=== PATIENT | male | born 1975 | race Caucasian/White ===

== ENCOUNTER 2020-10-28 11:54 | Outpatient (REF) | payer OTHER, SELFPAY ==
[2020-10-28 13:21] LABS: Alanine Aminotransferase 99 U/L (0-40); Albumin Level 4.6 g/dL (3.5-5.0); Alkaline Phosphatase 95 U/L (39-117); Anion Gap 13 (12-20); Aspartate Amino Transferase 49 U/L (5-37); Bilirubin Total 0.7 mg/dL (0.0-1.0); Blood Urea Nitrogen 11 mg/dL (9-16); Calcium 9.4 mg/dL (8.4-10.2); Carbon Dioxide 28 mmol/L (22-29); Chloride 104 mmol/L (96-108); Cholesterol 170 mg/dL; Estimated Glomerular Filt Rate > 60; Glucose Fasting 95 mg/dL (60-99); HDL Cholesterol 37 mg/dL; LDL Cholesterol Calculated 71 mg/dl; Potassium 4.4 mmol/l (3.3-5.1); Sodium 141 mmol/L (135-145); Total Protein 7.8 g/dL (6.5-8.0); Triglycerides 310 mg/dL
[2020-10-28 13:40] LABS: Estimated Average Glucose 117 mg/dL; Hemoglobin A1C 148.4492 umol/L; Hemoglobin A1c % 5.7 %
[2020-10-28 13:44] LABS: TSH reflex Free T4 1.41 mIU/mL (0.32-4.0)
== END 2020-10-28 11:55 | disposition home or self-care (01) ==
LOC: HO.LAB 11:54
PROVIDERS: PCP Physician Assistant; Visit Provider Physician Assistant
DX: Z13.1 Encounter for screening for diabetes mellitus (principal); Z13.220 Encounter for screening for lipoid disorders; Z13.29 Encounter for screening for other suspected endocrine disorder
CPT/HCPCS: 36415; 80053; 80061; 83036; 84443

== ENCOUNTER 2021-07-14 09:17 | Outpatient (REF) | payer OTHER, SELFPAY ==
[2021-07-14 10:58] LABS: Alanine Aminotransferase 59 U/L (0-40); Albumin Level 4.6 g/dL (3.5-5.0); Alkaline Phosphatase 83 U/L (39-117); Anion Gap 13 (12-20); Aspartate Amino Transferase 33 U/L (5-37); Bilirubin Total 0.9 mg/dL (0.0-1.0); Blood Urea Nitrogen 12 mg/dL (9-16); Calcium 9.5 mg/dL (8.4-10.2); Carbon Dioxide 27 mmol/L (22-29); Chloride 107 mmol/L (96-108); Cholesterol 147 mg/dL; Estimated Glomerular Filt Rate > 60; Glucose Fasting 100 mg/dL (60-99); HDL Cholesterol 36 mg/dL; LDL Cholesterol Calculated 97 mg/dl; Potassium 4.7 mmol/L (3.3-5.1); Sodium 142 mmol/L (135-145); Total Protein 7.5 g/dL (6.5-8.0); Triglycerides 71 mg/dL
[2021-07-14 11:05] LABS: Estimated Average Glucose 108 mg/dL; Hemoglobin A1c % 5.4 %
[2021-07-14 11:19] LABS: TSH reflex Free T4 1.36 uIU/mL (0.32-4.0)
[2021-07-22 21:22] LABS: Cystic Fibrosis NEGATIVE (NEGATIVE)
== END 2021-07-14 09:18 | disposition home or self-care (01) ==
LOC: HO.LAB 09:17
PROVIDERS: PCP Physician Assistant; Visit Provider Physician Assistant
DX: Z13.1 Encounter for screening for diabetes mellitus (principal); Z13.220 Encounter for screening for lipoid disorders; Z13.29 Encounter for screening for other suspected endocrine disorder; R74.8 Abnormal levels of other serum enzymes; Z14.1 Cystic fibrosis carrier
CPT/HCPCS: 36415; 80053; 80061; 81220; 83036; 84443

== ENCOUNTER 2022-10-31 09:26 | Outpatient (REF) | payer OTHER, SELFPAY ==
[2022-10-31 10:49] LABS: Estimated Average Glucose 123 mg/dL; Hemoglobin A1c % 5.9 %
[2022-10-31 11:38] LABS: Alanine Aminotransferase 117 U/L (0-40); Albumin Level 4.7 g/dL (3.5-5.0); Alkaline Phosphatase 101 U/L (39-117); Anion Gap 13 (12-20); Aspartate Amino Transferase 74 U/L (5-37); Bilirubin Total 1.1 mg/dL (0.0-1.0); Blood Urea Nitrogen 12 mg/dL (9-16); Calcium 9.7 mg/dL (8.4-10.2); Carbon Dioxide 27 mmol/L (22-29); Chloride 104 mmol/L (96-108); Cholesterol 171 mg/dL; Estimated Glomerular Filt Rate > 60; Glucose Random 117 mg/dL (60-115); HDL Cholesterol 38 mg/dL; LDL Cholesterol Calculated 77 mg/dl; Potassium 4.3 mmol/L (3.3-5.1); Sodium 140 mmol/L (135-145); Total Protein 7.7 g/dL (6.5-8.0); Triglycerides 283 mg/dL
[2022-10-31 11:41] LABS: TSH reflex Free T4 1.66 uIU/mL (0.32-4.0); Vitamin D 25-OH Total 30.7 ng/mL (>30)
== END 2022-10-31 09:27 | disposition home or self-care (01) ==
LOC: HO.LAB 09:26
PROVIDERS: PCP Physician Assistant; Visit Provider Nurse Practitioner Family
DX: Z13.220 Encounter for screening for lipoid disorders (principal); Z13.21 Encounter for screening for nutritional disorder; Z13.29 Encounter for screening for other suspected endocrine disorder
CPT/HCPCS: 36415; 80053; 80061; 82306; 83036; 84443

== ENCOUNTER 2022-11-03 11:30 | Outpatient (REF) | payer OTHER, SELFPAY ==
--- NOTE | ~2022-11-03 | XR_ITS ---
EXAMINATION: X-RAY BILATERAL KNEES X-RAY LEFT KNEE CLINICAL INFORMATION: Pain COMPARISON: None TECHNIQUE: AP bilateral knees one view. Left knee 2 views. FINDINGS: Left knee: Joint spaces are relatively maintained. Marginal patellar spur. No acute fracture or dislocation. Small suprapatellar joint fluid. Right knee: Medial and lateral compartment joint spaces are relatively maintained. XR/XR knee LT 2V IMPRESSION: Left knee: Marginal patellar spur. No acute osseous abnormality seen.
--- NOTE | ~2022-11-03 | XR_ITS ---
EXAMINATION: X-RAY BILATERAL KNEES X-RAY LEFT KNEE CLINICAL INFORMATION: Pain COMPARISON: None TECHNIQUE: AP bilateral knees one view. Left knee 2 views. FINDINGS: Left knee: Joint spaces are relatively maintained. Marginal patellar spur. No acute fracture or dislocation. Small suprapatellar joint fluid. Right knee: Medial and lateral compartment joint spaces are relatively maintained. XR/XR knee standing BI IMPRESSION: Left knee: Marginal patellar spur. No acute osseous abnormality seen.
== END 2022-11-03 11:31 | disposition home or self-care (01) ==
LOC: HO.HOSX 11:30
PROVIDERS: PCP Physician Assistant; Visit Provider Orthopaedic Surgery
DX: M23.92 Unspecified internal derangement of left knee (principal)
CPT/HCPCS: 73560; 73565; 99202

== ENCOUNTER 2022-11-03 12:31 | Outpatient (REF) | payer OTHER, SELFPAY ==
[2022-11-06 04:24] LABS: HBS Num1 4.54 mIU/mL (0-7.99); HBc Num1 0.08 S/CO (0.00-0.79); HBsAGNum1 0.27 S/CO (0.00-0.99); Hepatitis A Antibody IgM 0.13 Index (0-0.79); Hepatitis B Core Antibody Nonreactive (Nonreactive); Hepatitis B Surface Antigen Negative (Negative); ~HepC Num1 0.08 S/CO (0.00-0.79); ~Hepatitis A Antibody IgM Nonreactive (Nonreactive); ~Hepatitis B Surface Antibody NONREACTIVE (Nonreactive); ~Hepatitis C Antibody Nonreactive (Nonreactive)
== END 2022-11-03 12:32 | disposition home or self-care (01) ==
LOC: HO.LAB 12:31
PROVIDERS: PCP Physician Assistant; Visit Provider Nurse Practitioner Family
DX: R74.8 Abnormal levels of other serum enzymes (principal)
CPT/HCPCS: 36415; 86704; 86706; 86709; 86803; 87340

== ENCOUNTER → 2022-11-09 08:54 | Outpatient (REF) | payer OTHER, SELFPAY | LOC: HO.SL 08:54 | PROVIDERS: PCP Physician Assistant; Visit Provider Nurse Practitioner Family | DX: G47.33 Obstructive sleep apnea (adult) (pediatric) (principal); R40.0 Somnolence | CPT/HCPCS: 95806 ==

== ENCOUNTER 2022-11-21 17:54 | Outpatient (REF) | payer OTHER, SELFPAY ==
--- NOTE | ~2022-11-21 | MR_ITS ---
EXAMINATION: MR KNEE WITHOUT CONTRAST, LEFT CLINICAL INFORMATION: Internal derangement. Pain traveling to calf and endplate to thigh for 5 months. Worse with weightbearing. COMPARISON: Left knee radiographs dated 11/03/2022. TECHNIQUE: MRI of the knee without contrast was performed using routine sequences on a high-field scanner. FINDINGS: MENISCI: Medial Meniscus: Complete radial tear of the posterior root measuring up to 0.9 cm in ML dimension with medial extrusion of the meniscal body where there is degenerative intrasubstance signal. Adjacent marrow edema within the posterior medial tibial plateau. Lateral Meniscus: Intact LIGAMENTS: Cruciate: Intact. Collateral: Edema adjacent to the posterior aspect of the medial collateral ligament which could be related to a meniscal tear or indicate a grade 1 sprain/partial tear. Intact fibular collateral ligament. EXTENSOR MECHANISM: Intact quadriceps and patellar tendons. Normal patellofemoral alignment. ARTICULAR CARTILAGE/BONE: Patellofemoral Compartment: Diffuse patellar articular cartilage signal heterogeneity and surface irregularity with areas of partial-thickness loss. Tiny marginal osteophytes. Medial Compartment: Intact articular cartilage. Lateral Compartment: Intact articular cartilage. JOINT FLUID AND BURSAE: Small joint effusion and trace Man's cyst. MR/MR knee LT wo con IMPRESSION: 1. Complete radial tear of the medial meniscus posterior root measuring 0.9 cm in ML dimension with medial extrusion of the meniscal body. Degenerative intrasubstance signal within the meniscal body. 2. Edema adjacent to the posterior aspect of the medial collateral ligament which could be related to a meniscal tear or indicate a grade 1 sprain/partial tear. 3. Mild patellofemoral osteoarthritis. Small joint effusion and trace Man's cyst.
== END 2022-11-21 17:55 | disposition home or self-care (01) ==
LOC: HO.MRI 17:54
PROVIDERS: Visit Provider Orthopaedic Surgery
DX: M23.92 Unspecified internal derangement of left knee (principal)
CPT/HCPCS: 73721

== ENCOUNTER → 2022-12-07 14:19 | Outpatient (BNVA) | payer OTHER, SELFPAY | PROVIDERS: PCP Nurse Practitioner Family; Visit Provider Orthopaedic Surgery | DX: S83.207D Unspecified tear of unspecified meniscus, current injury, left knee, subsequent encounter (principal) | CPT/HCPCS: 99212 ==

== ENCOUNTER 2022-12-15 08:06 | Outpatient (REF) | payer OTHER, SELFPAY ==
--- NOTE | ~2022-12-15 | US_ITS ---
EXAMINATION: US ABDOMEN LIMITED CLINICAL INFORMATION: Abnormal levels of other serum enzymes. Alanine aminotransferase (ALT) (serum glutamic-pyruvic transaminase) (SGPT) level abnormal. COMPARISON: None TECHNIQUE: Real-time imaging of the right upper quadrant abdominal viscera. FINDINGS: PANCREAS: Normal. The visualized pancreatic head and body are normal in appearance. The remainder of the pancreas is obscured from visualization by the overlying bowel gas. LIVER: The liver is normal in size. The liver contour is normal. There is diffuse increased liver parenchymal echogenicity. No focal hepatic lesion. There is no intrahepatic biliary duct dilatation seen. GALLBLADDER: Normal. The gallbladder is physiologically distended without evidence of stones, sludge, polyps, wall thickening or pericholecystic fluid. COMMON BILE DUCT: Normal in caliber measuring 0.4 cm in diameter. RIGHT KIDNEY: Normal. No hydronephrosis. No renal calculi or focal parenchymal lesions. The kidney measures 13.2 cm in maximum dimension. FREE FLUID: None. US/US abdomen limited IMPRESSION: There is generalized increase in hepatic echotexture, consistent with fatty infiltration or hepatocellular disease. Please correlate clinically. No focal hepatic mass or intrahepatic biliary dilatation is seen.
--- NOTE | 2022-12-15 09:07 | HM_ITS ---
Conclusion: 1. Patient was monitored for total period of 2 days and 22 hours 2. Baseline was normal sinus rhythm with average heart of 73 beats per minute 3. No significant pauses or bradycardia noted 4. Rare ectopy noted 5. Patient reported 1 event with no associated symptoms correlated with sinus rhythm MTDD
== END 2022-12-15 08:07 | disposition home or self-care (01) ==
LOC: HO.US 08:06
PROVIDERS: PCP Nurse Practitioner Family; Visit Provider Nurse Practitioner Family
DX: R00.2 Palpitations (principal); R74.8 Abnormal levels of other serum enzymes
CPT/HCPCS: 76705; 93242

== ENCOUNTER → 2023-01-02 10:26 | Outpatient (REF) | payer OTHER, SELFPAY ==
--- NOTE | 2023-01-02 10:30 | CA_ITS ---
Acquisition Time: 2023-01-02 10:52:34 Total Exercise Time: 00:07:54 Test Indications: Palpitations,HTN Medications: see med list Protocol: KAYLEE Max HR: 150 BPM 87% of Pred: 172 BPM Max BP: 192/078 mmHG Max Work Load: 9.9 METS Exercise stress test with exercise 7 min 54 sec achieving 87% MPHR, with request to stop due to fatigue, moderate sob, No chest discomfort, with isolated PACs, with BP 156/80 with rise to 192/78 with exercise, without EKG changes meeting criteria for ischemia. In recovery BP came down to 166/76 and breathing normalized. Test reviewed with Dr Collins Referred By: Aylin Joe Overread By: NIGHAT HIGGINS
== END ==
LOC: HO.CARD 10:26
PROVIDERS: PCP Nurse Practitioner Family; Visit Provider Nurse Practitioner Family
DX: R07.9 Chest pain, unspecified (principal); R00.2 Palpitations
CPT/HCPCS: 93017

== ENCOUNTER → 2023-03-12 14:42 | Outpatient (BNVA) | payer OTHER, SELFPAY | PROVIDERS: PCP Nurse Practitioner Family; Visit Provider Orthopaedic Surgery | DX: Z01.818 Encounter for other preprocedural examination (principal); S83.207D Unspecified tear of unspecified meniscus, current injury, left knee, subsequent encounter | CPT/HCPCS: 99212 ==

== ENCOUNTER 2023-04-23 14:23 | Outpatient (AMB) | payer OTHER, SELFPAY ==
--- NOTE | 2023-04-23 14:42 | A.OFFVIS_ITS ---
Intake Vital Signs 04/23/23 14:43 Height 6 ft 1 in Weight 284 lb BMI 37.5 Intake Visit Reasons: Pre-Op LT knee 05/02/23NE Intake Note: Bran is a 47 year old male who presents today for a pre op appointment for his left knee , 05/02/23 NE. Allergies aspirin Allergy (Unknown, Verified 04/23/23 14:42) nose bleeds HPI Pre-Op LT knee 05/02/23NE HPI Details 47-year-old right hand dominant male who presents in the office today for his preoperative history and physical exam prior to a left knee arthroscopy to be performed on 05/02/[address] Garcia. Patient confirms use of narcotics in the past with no complications. Patient has an allergy history, as follows: -Aspirin; nose bleeds due to thin blood. Patient is currently taking, as follows: -Lisinopril 5 mg PO daily Patient has a medical history, as follows: -Hypertension -Mild BRANDON -Palpitations -Plaque psoriasis -Erectile dysfunction -Daytime somnolence Patient has no known surgical history. Patient has a social history, as follows: -Tobacco use; Cigarette, quit 14 years ago. [facility] Medical History Hypertension Obstructive sleep apnea syndrome, mild Palpitations Somnolence, daytime Surgical History No pertinent past surgical history Family History Father No problems noted. Mother No problems noted. Brother No problems noted. Son No problems noted. 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 Cognitive needs: No Hearing needs: No Vision needs: No Review of Systems Const All systems reviewed & are unremarkable except as noted in HPI and below Physical Exam Vital Signs: BMI result Body Mass Index 37.5 Const General: cooperative and no acute distress Orientation/consciousness: patient oriented x3 Neck Neck: Yes normal visual inspection and Yes no lymphadenopathy Resp Effort & Inspection: normal respiratory effort and able to speak in complete sentences Cardio Peripheral pulses: Peripheral pulses 2+ throughout GI Inspection: Yes normal to inspection Palpation (GI): Soft to palpation Skin General skin exam: no rashes or lesions noted Neuro General: patient oriented x3 Extrem Other: Left Knee: + medial Ronnie's in deep flexion Psych Appearance: grossly normal Affect: normal affect Attitude: cooperative Assessment & Plan Assessment & Plan (1) Tear of meniscus of left knee: Code(s): S83.207A - Unspecified tear of unspecified meniscus, current injury, left knee, initial encounter Plan Mr. Miles is a 47-year-old right hand dominant male who presents in the office today for his preoperative history and physical exam prior to a left knee arthroscopy to be performed on 05/02/[address] Garcia. Patient confirms use of narcotics in the past with no complications. Patient has an allergy history, as follows: -Aspirin; nose bleeds due to thin blood. Patient is currently taking, as follows: -Lisinopril 5 mg PO daily Patient has a medical history, as follows: -Hypertension -Mild BRANDON -Palpitations -Plaque psoriasis -Erectile dysfunction -Daytime somnolence Patient has no known surgical history. Patient has a social history, as follows: -Tobacco use; Cigarette, quit 14 years ago. I discussed in detail the procedure and what to expect pre and post operatively. We discussed the risks, benefits and alternatives to the surgery as well as the rehabilitation course. The risks; which include, but are not limited to infection, bleeding, nerve injury, ongoing pain, swelling, and stiffness, perioperative risk of injury to bones and soft tissues, and blood clots. I have answered all questions and with their understanding they have consented to move forward with a left knee arthroscopy to be performed on 05/02/[address] Yonny Garcia. Follow up will be at the post operative appointment on 05/07/2023 at 1:15 pm, or sooner if needed. Patient Instructions: Scribed for Emerita Cummins PA-C by Aylin Apodaca medical officer, on 04/23/2023 at 2:32 pm, EST. Your attestation Coding Level of Care Code Global (15371) Diagnoses Tear of meniscus of left knee S83.207A
[2023-04-23 14:43] VITALS: BMI 37.5
== END 2023-04-23 15:31 | disposition home or self-care (01) ==
PROVIDERS: PCP Nurse Practitioner Family; Visit Provider Physician Assistant
DX: S83.207A Unspecified tear of unspecified meniscus, current injury, left knee, initial encounter (principal)
CPT/HCPCS: 99213

== ENCOUNTER 2023-04-23 14:23 | Outpatient (REF) | payer OTHER, SELFPAY ==
[2023-04-23 15:16] LABS: MANUAL DIFF FLAG NO
[2023-04-23 15:38] LABS: Basophils Percent Auto 0.5 % (0-2); Eosinophils Absolute Auto 0.1 X10*3/uL (0.0-0.4); Hematocrit 43.1 % (42.0-52.0); Hemoglobin 14.6 g/dl (14.0-18.0); Imm Gran Abs Auto 0.02 X10*3/uL (0.00-0.03); Imm Gran Pct Auto 0.3 % (0.0-0.4); Lymphocytes Absolute Auto 1.3 X10*3/uL (1.2-4.9); Lymphocytes Percent Auto 20.2 % (20-40); Mean Corpuscular HGB Conc 33.9 g/dl (31.0-36.0); Mean Corpuscular Hemoglobin 32.3 pg (27.0-33.0); Mean Corpuscular Volume 95.4 fL (80.0-98.0); Mean Platelet Volume 10.3 fL (9.4-12.4); Monocytes Absolute Auto 0.5 X10*3/uL (0.1-1.2); Monocytes Percent Auto 7.7 % (2-11); Neutrophils Absolute Auto 4.6 x10*3/uL (2.0-8.3); Neutrophils Percent Auto 69.3 % (45-73); Platelet Count 193 X10*3/uL (160-400); Red Blood Count 4.52 X10*6/uL (4.60-5.80); White Blood Count 6.7 X10*3/uL (4.8-10.8)
[2023-04-23 15:57] LABS: Prothrombin Time 11.5 SEC (10.0-13.1)
[2023-04-23 16:19] LABS: Alanine Aminotransferase 82 U/L (0-40); Albumin Level 4.8 g/dL (3.5-5.0); Alkaline Phosphatase 106 U/L (39-117); Anion Gap 14 (12-20); Aspartate Amino Transferase 39 U/L (5-37); Bilirubin Total 0.8 mg/dL (0.0-1.0); Blood Urea Nitrogen 16 mg/dL (9-16); Calcium 9.7 mg/dL (8.4-10.2); Carbon Dioxide 26 mmol/L (22-29); Chloride 103 mmol/L (96-108); Estimated Glomerular Filt Rate > 60; Glucose Random 166 mg/dL (60-115); Potassium 4.1 mmol/L (3.3-5.1); Sodium 139 mmol/L (135-145); Total Protein 8.3 g/dL (6.5-8.0)
[2023-04-23 16:33] LABS: TSH reflex Free T4 2.07 uIU/mL (0.32-4.0)
== END 2023-04-23 14:24 | disposition home or self-care (01) ==
LOC: HO.LAB 14:23
PROVIDERS: PCP Nurse Practitioner Family; Visit Provider Physician Assistant
DX: Z01.812 Encounter for preprocedural laboratory examination (principal); S83.207D Unspecified tear of unspecified meniscus, current injury, left knee, subsequent encounter
CPT/HCPCS: 36415; 80053; 84443; 85025; 85610; 99212

== ENCOUNTER → 2023-05-01 15:21 | Outpatient (BNV) | payer OTHER, SELFPAY | PROVIDERS: PCP Nurse Practitioner Family; Visit Provider Internal Medicine Cardiovascular Disease | DX: Z01.810 Encounter for preprocedural cardiovascular examination (principal) | CPT/HCPCS: 93010 ==

== ENCOUNTER 2023-05-02 08:43 | Day surgery (SDC) | payer OTHER, SELFPAY ==
[2023-04-27 19:15] VITALS: BMI 36.9
--- NOTE | 2023-05-01 08:45 | HO.ANESPROP2 ---
HPI - Anesthesia Eval Consult details Narrative: 48yo M for Left Knee Arthroscopy,poss meniscus root repair, Sent by ortho for medical clearance. EKG pending before PCP will clear. PMFSH Active Problems Active Problems: All Active Problems (Updated 04/27/23 @ 19:15 by Linette Swanson RN) Skin lesion (Acute) Screening for diabetes mellitus (DM) (Acute) Screening for hypercholesterolemia (Acute) Screening for hypothyroidism (Acute) Erectile dysfunction (Acute) Annual physical exam (Acute) Elevated liver enzymes (Acute) Cystic fibrosis carrier (Acute) Plaque psoriasis (Acute) Internal derangement of left knee (Acute) Tear of meniscus of left knee (Acute) Hypertension (Acute) Obstructive sleep apnea syndrome, mild (Acute) Palpitations (Acute) Somnolence, daytime (Acute) Past Medical History Medical History (Updated 04/27/23 @ 19:15 by Linette Swanson RN) GERD (gastroesophageal reflux disease) Hypertension Obstructive sleep apnea syndrome, mild Palpitations Rheumatoid arthritis Somnolence, daytime Family History Family History Father No problems noted. Mother No problems noted. Brother No problems noted. Son No problems noted. 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 Cognitive needs: No Hearing needs: No Vision needs: No Meds Allergies Allergy/AdvReac Type Severity Reaction Status Date / Time aspirin Allergy Unknown nose bleeds Verified 04/23/23 14:42 Home Medications Medication Instructions Recorded Confirmed Last Taken Type guselkumab 100 mg/mL subcutaneous 100 mg subcut 11/01/20 10/23/22 Unknown History auto-injector blood pressure test kit-large #1 ea 04/12/23 Unknown History ketoconazole 2 % shampoo topical BID 04/12/23 Unknown History omeprazole 20 mg capsule,delayed 20 mg PO DAILY 07/21/23 07/21/23 Unknown History release Exam Exam Date and Time: May 01, 2023 0845 Height,Weight and Vital Signs: Height 6 ft 1 in Weight 127.006 kg Pertinent Lab Results Pertinent Lab Results: Laboratory Tests 04/23/23 04/23/23 15:15 15:15 WBC 6.7 Hgb 14.6 Hct 43.1 Plt Count 193 Sodium 139 Potassium 4.1 Chloride 103 Carbon Dioxide 26 BUN 16 Creatinine 1.12 Narrative Narrative: Exercise Stress 12/2022 Protocol: KAYLEE ? Max HR: 150 BPM? 87% of? Pred: 172 BPM Max BP: 192/078 mmHG Max Work Load: 9.9 METS ? Exercise stress test with exercise 7 min 54 sec achieving 87% MPHR, with request ?to stop due to fatigue, moderate sob, No chest discomfort, with isolated PACs, ?with BP 156/80 with rise to 192/78 with exercise, without EKG changes meeting ?criteria for ischemia. In recovery BP came down to 166/76 and breathing ?normalized. Test reviewed with Dr Dennis Tatum 12/2022 Conclusion: 1. Patient was monitored for total period of 2 days and 22 hours 2. Baseline was normal sinus rhythm with average heart of 73 beats per minute 3. No significant pauses or bradycardia noted 4. Rare ectopy noted 5. Patient reported 1 event with no associated symptoms correlated with sinus rhythm Assessment and Plan Assessment Anesthesia Assessment: Chart Reviewed
--- NOTE | 2023-05-01 11:56 | P.CONAN_ITS ---
Documented by User: Lorenza Charlton NP 05/01/23 12:00 HPI - Anesthesia Eval Consult details Narrative: 48yo M for Left Knee Arthroscopy,poss meniscus root repair, Seen by PCP for optimization. Labs and EKG ordered. Labs WNL, EKG pending. To be done 05/01/23. [facility] Active Problems Active Problems: All Active Problems (Updated 04/27/23 @ 19:15 by Linette Swanson RN) Skin lesion (Acute) Screening for diabetes mellitus (DM) (Acute) Screening for hypercholesterolemia (Acute) Screening for hypothyroidism (Acute) Erectile dysfunction (Acute) Annual physical exam (Acute) Elevated liver enzymes (Acute) Cystic fibrosis carrier (Acute) Plaque psoriasis (Acute) Internal derangement of left knee (Acute) Tear of meniscus of left knee (Acute) Hypertension (Acute) Obstructive sleep apnea syndrome, mild (Acute) Palpitations (Acute) Somnolence, daytime (Acute) Past Medical History Medical History (Updated 04/27/23 @ 19:15 by Linette Swanson RN) GERD (gastroesophageal reflux disease) Hypertension Obstructive sleep apnea syndrome, mild Palpitations Rheumatoid arthritis Somnolence, daytime Family History Family History Father No problems noted. Mother No problems noted. Brother No problems noted. Son No problems noted. Surgical History Surgical History (Updated 04/27/23 @ 19:26 by Linette Swanson RN) H/O excision of dermoid cyst No pertinent past surgical history Status post debridement Social History Social History Housing: House Patient Tobacco Use Status: Former Tobacco user Tobacco use type: Cigarette e-Cigarette/Vaping Use: Never Used Second Hand Smoke Exposure: No Use of substances other than those prescribed or required for medical reasons: Yes Substance Use Frequency: Weekly Are you DNR?: No Advance Directives: No Advance Directives Information Provided: Yes Advance Directives on File: No Recently lost weight without trying: No Nutrition Risks: No Nutritional Risk service: No 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al status: unemployed 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 Cognitive needs: No Hearing needs: No Vision needs: No Meds Allergies Allergy/AdvReac Type Severity Reaction Status Date / Time aspirin Allergy Unknown nose bleeds Verified 04/23/23 14:42 Home Medications Medication Instructions Recorded Confirmed Last Taken Type guselkumab 100 mg/mL subcutaneous 100 mg subcut 11/01/20 10/23/22 Unknown History auto-injector blood pressure test kit-large #1 ea 04/12/23 Unknown History ketoconazole 2 % shampoo topical BID 04/12/23 Unknown History omeprazole 20 mg capsule,delayed 20 mg PO DAILY 04/27/23 04/27/23 Unknown History release Exam Exam Date and Time: May 01, 2023 1156 Height,Weight and Vital Signs: Height 6 ft 1 in Weight 127.006 kg Pertinent Lab Results Pertinent Lab Results: Laboratory Tests 04/23/23 04/23/23 15:15 15:15 WBC 6.7 Hgb 14.6 Hct 43.1 Plt Count 193 Sodium 139 Potassium 4.1 Chloride 103 Carbon Dioxide 26 BUN 16 Creatinine 1.12 Narrative Narrative: Holter 12/2022 Conclusion: 1. Patient was monitored for total period of 2 days and 22 hours 2. Baseline was normal sinus rhythm with average heart of 73 beats per minute 3. No significant pauses or bradycardia noted 4. Rare ectopy noted 5. Patient reported 1 event with no associated symptoms correlated with sinus rhythm Exercise Stress Test Protocol: KAYLEE ? Max HR: 150 BPM? 87% of? Pred: 172 BPM Max BP: 192/078 mmHG Max Work Load: 9.9 METS ? Exercise stress test with exercise 7 min 54 sec achieving 87% MPHR, with request ?to stop due to fatigue, moderate sob, No chest discomfort, with isolated PACs, ?with BP 156/80 with rise to 192/78 with exercise, without EKG changes meeting ?criteria for ischemia. In recovery BP came down to 166/76 and breathing ?normalized. Test reviewed with Dr Collins Assessment and Plan Assessment Anesthesia Assessment: Chart Reviewed Documented by User: Charles Merchant MD 05/02/23 09:21 [facility] Past Medical History Medical History (Updated 04/27/23 @ 19:15 by Linette Swanson RN) GERD (gastroesophageal reflux disease) Hypertension Obstructive sleep apnea syndrome, mild Palpitations Rheumatoid arthritis Somnolence, daytime Family History Family History Father No problems noted. Mother No problems noted. Brother No problems noted. Son No problems noted. Family history of problems with anesthesia: No Surgical History Surgical History (Updated 04/27/23 @ 19:26 by Linette Swanson RN) H/O excision of dermoid cyst No pertinent past surgical history Status post debridement History of Problems with Anesthesia: No Social History Social History Housing: House Patient Tobacco Use Status: Former Tobacco user Tobacco use type: Cigarette e-Cigarette/Vaping Use: Never Used Second Hand Smoke Exposure: No Use of substances other than those prescribed or required for medical reasons: Yes Substance Use Frequency: Weekly Are you DNR?: No Advance Directives: No Advance Directives Information Provided: Yes Advance Directives on File: No Recently lost weight without trying: No Nutrition Risks: No Nutritional Risk service: No 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al status: unemployed 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 Cognitive needs: No Hearing needs: No Vision needs: No Meds Allergies Allergy/AdvReac Type Severity Reaction Status Date / Time aspirin Allergy Unknown nose bleeds Verified 04/23/23 14:42 Home Medications Medication Instructions Recorded Confirmed Last Taken Type guselkumab 100 mg/mL subcutaneous 100 mg subcut 11/01/20 10/23/22 Unknown History auto-injector blood pressure test kit-large #1 ea 04/12/23 Unknown History ketoconazole 2 % shampoo topical BID 04/12/23 Unknown History omeprazole 20 mg capsule,delayed 20 mg PO DAILY 04/27/23 04/27/23 Unknown History release Exam Airway Mallampati Class: III TM Dist: >3cm Neck ROM: Limited Heart: rrr Lungs: cta Assessment and Plan Assessment Anesthesia Assessment: Anesthesia Plan Discussed Final Anesthetic Review Family History of Problems with Anesthesia: No History of Problems with Anesthesia: No NPO: Yes ASA Class: III Final Preanesthetic Review: No Changes in Pt Med Stat, Meds/Allgs Chart Reviewed, Consent Obtained/Reviewed and Anes Risks/Benef Reviewed Patient Risk: Intermediate Procedure Risk: Intermediate Anesthetic Plan Anesthetic Plan: GA and Agree w/ Assess. and Plan Disposition: Standard PACU
--- NOTE | 2023-05-01 15:21 | ECG_ITS ---
Test Reason : PREOP Blood Pressure : / mmHG Vent. Rate : 079 BPM Atrial Rate : 079 BPM P-R Int : 148 ms QRS Dur : 094 ms QT Int : 392 ms P-R-T Axes : 000 028 040 degrees QTc Int : 449 ms Normal sinus rhythm Normal ECG No previous ECGs available Referred By: Aylin Joe Electronically Signed By:YASIR CHANDLER MD
[2023-05-02] VITALS (10 sets, daily range): BP systolic 122–157; BP diastolic 50–84; PULSE 82–110; RESP 16–18; TEMP 36.1–36.6; O2SAT 95–99
[2023-05-02] MEDS: Lactated Ringers 1,000 ML 100 ML IVCONT (09:34)
--- NOTE | 2023-05-02 09:59 | MHC.SHP ---
Pre-Procedural Eval Section A Date of Service: 05/02/23 The patient is an INPATIENT: No Changes since office visit: No Cold of Flu in the past 2 weeks, No New Medical Problems, No Changes in Medication and No Patient answered all questions The History & Physical has been completed within 30 days and I have reviewed it.: Yes Section B Chief Complaint: Unspecified tear of unspecified meniscus, current Allergies: Allergies Allergy/AdvReac Type Severity Reaction Status Date / Time aspirin Allergy Unknown nose bleeds Verified 04/23/23 14:42 Plan I have reviewed the history and physical and performed a pertinent physical examination on my patient. No changes have occurred unless specified. Time Spent With Patient Time: Total time managing care of this patient today ____ minutes.
--- NOTE | 2023-05-02 10:04 | PC.NURSE ---
Cardiac hx and EKG reviewed by anesthesia Dr Shonda good to proceed.
--- NOTE | 2023-05-02 13:03 | PM.OP ---
Brief Operative Note Date of Service: 05/02/23 Pre-op diagnosis: left knee MMT Post-op diagnosis: other (1) MMT 2) LMT 3) Partial ACL tear 4) lateral compartment 3/4 OA 4) lateral PF G2 chondromalacia) Procedure: Left knee partial MM, partial LM, ACL debridement and chondroplasty Surgeon: Yonny Garcia MD Anesthesia: GETA and local Was an Vice President Of Human Resources used for this Procedure?: Yes Vice President Of Human Resources: Emerita Cummins Estimated blood loss (mL): 5 Tourniquet time (min): 30 IV fluids (mL): 750 Pathology: none sent Condition: stable Disposition: PACU
[2023-05-02] MEDS: oxyCODONE HCl Immed Release 5 MG TABLET PO (13:28)
[2023-05-02] MEDS: fentaNYL citrate/PF 100 MCG/2 ML VIAL 25 MCG IVPUSH (13:28)
--- NOTE | 2023-05-11 16:17 | W.PM.OPN ---
Operative Note Operative Note Date of Service: 05/02/23 Narrative: Date of Service: 05/02/23 Pre-op diagnosis: left knee MMT Post-op diagnosis: other (1) MMT 2) LMT 3) Partial ACL tear 4) lateral compartment 3/4 OA 4) lateral PF G2 chondromalacia) Procedure: Left knee partial MM, partial LM, ACL debridement and chondroplasty Surgeon: Yonny Garcia MD Anesthesia: GETA and local Was an Mechanical Assembly used for this Procedure?: Yes Mechanical Assembly: Emerita Cummins Estimated blood loss (mL): 5 Tourniquet time (min): 30 IV fluids (mL): 750 Pathology: none sent Condition: stable Disposition: PACU Patient was brought to the operating room placed supine on the arthroscopic table and prepped and draped in standard sterile fashion. A time-out was called to identify proper site proper procedure proper surgeon and IV antibiotics per weight were administered. I began by exsanguinating the limb and insufflating tourniquet to 300 mm Hg. Then made a standard anterolateral stab incision. The knee was insufflated with water and 30 degree arthroscope was placed. There was grade 2 fibrillations of the lateral patella. The suprapatellar pouch was clean and the gutters were clean. I descended into the medial compartment where I made my medial portal under direct visualization. There was a tear of the root of the medial meniscus but partial and the stability of the root was intact. I debrided this with a shaver. I entered the notch and there was a partial ACL avulsion off the tibia that was healed but with a prominent piece of avulased bone. This was removed with a sahver and the AM bundle of the ACL was intact. The lateral compartment was then evaluated. There was a small tear without instability but a focal area of G3/4 chondral loss measuring 1cmx 5 mnm over the medial aspect of the lateral tibial plateau. The lateral meniscus tear and the cartilage were debrided down to stable edges. I returned to the patella and debrided the loose cartilage. I removed all instrumentation. I then removed all instrumentation and closed the portals with skin glue. 25 mL of 2% Marcaine with epinephrine was injected into the joint and the surrounding soft tissues. Patient was then placed in sterile dressing extubated brought recovery room stable condition. There were no known complications.
== END 2023-05-02 14:30 | disposition home or self-care (01) ==
PROVIDERS: PCP Nurse Practitioner Family; Visit Provider Orthopaedic Surgery
PROC: (CPT 29870; principal; 2023-05-02 10:50)
DX: S83.242A Other tear of medial meniscus, current injury, left knee, initial encounter (principal); S83.282A Other tear of lateral meniscus, current injury, left knee, initial encounter; S83.512A Sprain of anterior cruciate ligament of left knee, initial encounter; M22.42 Chondromalacia patellae, left knee; X58.XXXA Exposure to other specified factors, initial encounter; Y93.9 Activity, unspecified; Y92.9 Unspecified place or not applicable; Y99.8 Other external cause status; M06.9 Rheumatoid arthritis, unspecified; I10 Essential (primary) hypertension; R00.2 Palpitations; L40.0 Psoriasis vulgaris; G47.33 Obstructive sleep apnea (adult) (pediatric); Z79.899 Other long term (current) drug therapy; Z88.8 Allergy status to other drugs, medicaments and biological substances; Z87.891 Personal history of nicotine dependence
CPT/HCPCS: 29880; 93005; J0131; J0171; J0690; J1885; J2795; J3010

== ENCOUNTER → 2023-05-02 08:43 | Outpatient (BNV) | payer OTHER, SELFPAY | PROVIDERS: PCP Nurse Practitioner Family; Visit Provider Orthopaedic Surgery | DX: S83.512A Sprain of anterior cruciate ligament of left knee, initial encounter (principal); S83.232A Complex tear of medial meniscus, current injury, left knee, initial encounter; S83.272A Complex tear of lateral meniscus, current injury, left knee, initial encounter; M17.12 Unilateral primary osteoarthritis, left knee; M22.42 Chondromalacia patellae, left knee | CPT/HCPCS: 29880; 29888 ==

== ENCOUNTER 2023-05-08 10:46 | Outpatient (AMB) | payer OTHER, SELFPAY ==
--- NOTE | 2023-05-08 10:49 | MHC.OFFVIS ---
Intake Vital Signs 05/08/23 10:54 Height 6 ft 1 in Weight 280 lb BMI 36.9 Intake Visit Reasons: PO LT knee , poss MM root repair 05/02/23NE Intake Note: Bran is a 47 year old male who presents today for a post op appointment for his left knee , 05/02/23 NE. Patient reports ongoing achiness. He states his knee feels better that before. Allergies aspirin Allergy (Unknown, Verified 05/08/23 10:53) nose bleeds HPI PO LT knee , poss MM root repair 05/02/23NE HPI Details 48-year-old male who presents in the office today 6 days status post left knee partial medial menisectomy, partial lateral menisectomy, ACL debridement and chondroplasty, which was performed on 05/02/[address] Garcia. The patient reports ongoing achiness. He confirms the knee feels better then prior to the surgery. [facility] Medical History GERD (gastroesophageal reflux disease) Hypertension Obstructive sleep apnea syndrome, mild Palpitations Rheumatoid arthritis Somnolence, daytime Surgical History H/O excision of dermoid cyst No pertinent past surgical history Status post debridement Family History Father No problems noted. Mother No problems noted. Brother No problems noted. Son No problems noted. 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 No signs of infection. ROM is 20-90 degrees. NVI. Assessment & Plan Assessment & Plan (1) Tear of meniscus of left knee: Comment: Left knee partial medial menisectomy, partial lateral menisectomy, ACL debridement and chondroplasty 05/02/2023 NE Code(s): S83.207A - Unspecified tear of unspecified meniscus, current injury, left knee, initial encounter Plan Mr. Miles is a 48-year-old male who presents in the office today 6 days status post left knee partial medial menisectomy, partial lateral menisectomy, ACL debridement and chondroplasty, which was performed on 05/02/[address] Garcia. The patient reports ongoing achiness. He confirms the knee feels better then prior to the surgery. The patient will participate in his first physical therapy appointment on 05/10/2023 which I have encouraged him to attend to work on ROM. Follow up will be in 3 weeks for a ROM check, or sooner if needed. Patient Instructions: Scribed for Emerita Cummins PA-C by tessie Wade scribe, on 05/08/2023 at 10:48 am, EST. Your attestation Coding Level of Care Code Global (98757) Diagnoses Tear of meniscus of left knee S83.207A
[2023-05-08 10:54] VITALS: BMI 36.9
== END 2023-05-08 13:53 | disposition home or self-care (01) ==
PROVIDERS: PCP Nurse Practitioner Family; Visit Provider Physician Assistant
DX: S83.207A Unspecified tear of unspecified meniscus, current injury, left knee, initial encounter (principal)
CPT/HCPCS: 99024

== ENCOUNTER → 2023-05-08 10:46 | Outpatient (BNVA) | payer OTHER, SELFPAY | PROVIDERS: PCP Nurse Practitioner Family; Visit Provider Physician Assistant ==

== ENCOUNTER 2023-06-07 13:02 | Outpatient (AMB) | payer OTHER, SELFPAY ==
--- NOTE | 2023-06-07 13:06 | A.OFFVIS_ITS ---
Intake Intake Visit Reasons: PO LT knee , poss MM root repair 05/02/23NE Intake Note: Bran is a 47 year old male who presents today for a post op appointment for his left knee , 05/02/23 NE. Patient reports that he is having a constatn ache, pain increases with walking. He through that he would be further along by now. He is not taking anything for his pain as he does not like to take meds. Over the last two weeks he has noticed a snapping and popping of the knee. He feels that his knee is getting worse. Allergies aspirin Allergy (Unknown, Verified 05/08/23 10:53) nose bleeds HPI PO LT knee , poss MM root repair 05/02/23NE HPI Details Bran is a 48 year old man ~1 month S/P left knee partial medial menisectomy, partial lateral menisectomy, ACL debridement and chondroplasty. He is here for a ROM check. He says he is doing poorly and has had a constant ache in his knee for the last few weeks. He says for the last 2 weeks he has been feeling a popping sensation in his knee. He is frustrated by his continued pain and limitations, he was hoping to be further along in healing by now. He takes Aleve occasionally, with some relief. He denies any PT due to scheduling conflicts and miscommunication. He says he is in the process of finding a new job. 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 He would like to improve in the next few weeks in order to take the new job. [facility] Medical History GERD (gastroesophageal reflux disease) Hypertension Obstructive sleep apnea syndrome, mild Palpitations Rheumatoid arthritis Somnolence, daytime Surgical History H/O excision of dermoid cyst No pertinent past surgical history Status post debridement Family History Father No problems noted. Mother No problems noted. Brother No problems noted. Son No problems noted. 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 Cognitive needs: No Hearing needs: No Vision needs: No Review of Systems Const All systems reviewed & are unremarkable except as noted in HPI and below Physical Exam Const General: no acute distress, alert and awake Orientation/consciousness: patient oriented x3 HEENT Head: Yes normocephalic and Yes atraumatic Eyes EOM: EOMs intact bilaterally Resp Effort & Inspection: normal respiratory effort and able to speak in complete sentences Cardio Jugular venous distension: no JVD Skin General skin exam: turgor normal Rashes: no rashes Neuro General: patient oriented x3 Extrem Other: Left Knee: Moderate effusion Weakness in knee extension, secondary to quad inhibition Psych Appearance: grossly normal Affect: normal affect Attitude: cooperative Office Procedures Joint Injection/Drain Joint Injection/Drain Details: Aspirated 120 ml ss fluid Primary Site: left knee Prep: site was prepped using aseptic technique Approach Used: lateral parapatellar Procedure: The patient tolerated the procedure well Coding 33930 - Large joint Procedure code (CPT) selection complete Assessment & Plan Assessment & Plan (1) Status post arthroscopy of left knee: Code(s): Z98.890 - Other specified postprocedural states Plan: This is a 48 year old man S/P left knee partial medial menisectomy, partial lateral menisectomy, ACL debridement and chondroplasty, DOS: 05/02/23. He has known left knee OA & moderate effusion, along with quad inhibition. He continues to have pain and effusion in his knee, worse with activity. He feels limited in his ADLs and has not yet started PT due to miscommunication. I discussed further treatment options to manage his pain. I aspirated ~120mLs of serosanguinous fluid, normal in appearance from his knee, ordered a course of PT for stretching & strengthening and ordered Diclofenac for him to take. I recommend icing his knee frequently and to be mindful to not push through pain. He will follow up for an injection in the next few weeks prior to his job interview. (2) Osteoarthritis of left knee: Code(s): M17.12 - Unilateral primary osteoarthritis, left knee (3) Effusion, left knee: Code(s): M25.462 - Effusion, left knee Plan Scribed for Yonny Garcia MD by Eric Sin, medical physics researcher, on 06/07/23 at 1:35 PM, EST. Orders: Orders PT Evaluation and Treatment 05/14/23 M17.12 - Unilateral primary osteoarthritis, left knee, S83.207A - Unspecified tear of unspecified meniscus, current injury, left knee, initial encounter [facility] PA-C Medications: New diclofenac sodium 75 mg PO BID 60 tabs 0RF Yonny Garcia MD Coding Level of Care Code Global (85895) Diagnoses Status post arthroscopy of left knee Z98.890 Osteoarthritis of left knee M17.12 Effusion, left knee M25.462 CPT Codes Coding - 61105 Large joint: 09205 - Large joint ([id number])
== END 2023-06-07 13:57 | disposition home or self-care (01) ==
PROVIDERS: PCP Nurse Practitioner Family; Visit Provider Orthopaedic Surgery
DX: S83.232D Complex tear of medial meniscus, current injury, left knee, subsequent encounter (principal); S83.272D Complex tear of lateral meniscus, current injury, left knee, subsequent encounter; M17.12 Unilateral primary osteoarthritis, left knee; M25.462 Effusion, left knee
CPT/HCPCS: 20610; 99024

== ENCOUNTER → 2023-06-07 13:02 | Outpatient (BNVA) | payer OTHER, SELFPAY | PROVIDERS: PCP Nurse Practitioner Family; Visit Provider Orthopaedic Surgery | DX: Z47.89 Encounter for other orthopedic aftercare (principal); M17.12 Unilateral primary osteoarthritis, left knee; M25.462 Effusion, left knee | CPT/HCPCS: 20610; 99212 ==

== ENCOUNTER 2023-07-20 07:22 | Outpatient (AMB) | payer OTHER, SELFPAY ==
[2023-07-20 07:30] VITALS: BP 144/82; PULSE 79; O2SAT 98; BMI 37.9
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
== END 2023-07-20 07:52 | disposition home or self-care (01) ==
PROVIDERS: PCP Nurse Practitioner Family; Visit Provider Nurse Practitioner Family
DX: Z00.00 Encounter for general adult medical examination without abnormal findings (principal); I10 Essential (primary) hypertension
CPT/HCPCS: 99396

== ENCOUNTER 2023-10-03 15:08 | Outpatient (AMB) | payer OTHER, SELFPAY ==
--- NOTE | 2023-10-03 15:09 | MHC.PC.OV ---
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 Patient has a past medical history significant for hypertension, obstructive sleep apnea, plaque psoriasis. He reports over the last week having some shortness of breath with minimal exertion. He does report being out of shape been recently drinking excessive amounts of alcohol during the holidays.. He reports this has been a problem for many years and has had cardiac stress test and echocardiograms that did not show any significant findings. Today on physical exam noted an irregular heart rate. EKG showing atrial fib with a rate of 130. PATIENT INTERESTED IN GOING TO ER. We did discuss medications for AFib to which we will start metoprolol. Ronaldo score 1. Will refer to Cardiology as well. Has an allergy to aspirin (excessive bleeding). Not interested in starting anticoagulation at this time he does understand his stroke risk. [facility] Medical History Rheumatoid arthritis GERD (gastroesophageal reflux disease) Hypertension Obstructive sleep apnea syndrome, mild Palpitations Somnolence, daytime Surgical History Status post debridement H/O excision of dermoid cyst No pertinent past surgical history Family History Father No problems noted. Mother No problems noted. Brother No problems noted. Son No problems noted. 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 How often do you have a drink containing alcohol?: Never Total Score: 0 ARIANNA-7 AMB Questionnaire ARIANNA-7 Date ARIANNA - 7 assessed: 10/23/22 Source: Developed by Drs. Norberto Beverly, Donna Timmons, Mumtaz Mccauley and colleagues, with an educational klaudia from [employer]. Review of Systems Const Denies headache(s) Eyes Denies loss of vision ENT Denies vertigo, Denies dizziness, Denies headache(s) and Denies sore throat Card Denies chest pain, Denies leg edema and Denies lightheadedness Resp Denies cough, Denies hemoptysis and Denies wheezing GI Denies abdominal pain, Denies melena, Denies constipation, Denies diarrhea and Denies vomiting Denies dysuria, Denies urinary frequency and Denies urinary urgency Musc Denies arthralgias, Denies joint swelling, Denies numbness and Denies tingling Neuro Denies Abnormal speech present, Denies behavioral changes, Denies vertigo, Denies dizziness, Denies headache(s), Denies loss of vision, Denies memory loss, Denies numbness and Denies tingling Psych Denies anxiety, Denies behavioral changes, Denies depression, Denies memory loss and Denies panic attacks David/Lymph Denies easy bleeding and Denies easy bruising Aller/Immun Denies wheezing Physical exam (Primary Care) Vital Signs: Last Vital Signs Pulse 92 10/03/23 15:10 BP 150/78 H 10/03/23 15:10 Pulse Ox 95 10/03/23 15:10 Oxygen Delivery Method Room Air 10/03/23 15:10 BMI result Body Mass Index 38.4 BMI Assessment/Plan discussion: High Tobacco/Smoking Status: Tobacco use Status Tobacco use date assessed 10/03/23 10/03/23 15:16 Patient Tobacco Use Status Former Tobacco user 10/03/23 15:16 Tobacco use type Cigarette 10/03/23 15:16 e-Cigarette/Vaping Use Never Used 10/03/23 15:16 Thrive Assessment: Date of Thrive Assessment Date Thrive assessed 10/23/22 10/03/23 15:16 Const General: healthy appearing, no acute distress, alert and awake Nutritional Appearance: well nourished Orientation/consciousness: oriented to person, oriented to place and oriented to time HENMT Ears: TM's normal bilaterally General nose exam: Normal nasal mucous membranes and turbinates present Eyes Conjunctivae: conjunctivae normal Sclerae: sclerae normal Pupils: Equal, round and reactive pupils present Neck Neck: Yes no lymphadenopathy and Yes no JVD Thyroid: Thyroid normal Carotids: no bruits Resp Effort & Inspection: normal respiratory effort and not tachypneic Auscultation: no crackles, no rales, no rhonchi and no wheezes Cardio Other: IRREGULARLY IRREGULAR RHYTHM Rate: tachycardic Rhythm: abnormal rhythm and abnormal rhythm Heart sounds: no murmurs and normal S1 and S2 GI Palpation (GI): Soft to palpation, nontender, no hepatomegaly and no splenomegaly Auscultation: normal bowel sounds Skin General skin exam: no rashes or lesions noted and dry skin Neuro General: oriented to person, oriented to place and oriented to time Cranial nerves: Yes Equal, round and reactive pupils present Speech: No Abnormal speech present Gait exam (Neuro): Normal gait present Motor exam (neuro): no tremor noted Extrem Right upper extremity: full ROM Left upper extremity: full ROM Right lower extremity: full ROM; no edema Left lower extremity: full ROM; no edema Psych Mental Status: mental status grossly normal Speech and movement: Normal speech and movement present Affect: normal affect Attitude: cooperative Thought process: Normal thought process present Office Procedures EKG Details: See scanned in document, Interpretation- atrial fibrillation [id number], Complete Assessment and Plan Assessment & Plan (1) Afib: Code(s): I48.91 - Unspecified atrial fibrillation Qualifiers: Atrial fibrillation type: paroxysmal Qualified Code(s): I48.0 - Paroxysmal atrial fibrillation Plan: Noted AFib today on office EKG. Most likely the reason he has felt shortness of breath. He reports he has felt this way for many years on off. He does report drinking more alcohol lately. Started on metoprolol 25 mg b.i.d.. He is apprehensive on starting anticoagulation at this time. Ronaldo score 1. Will refer to cardiology (2) Shortness of breath: Code(s): R06.02 - Shortness of breath Plan: Likely secondary to his AFib. Seems to be paroxysmal he does report feeling on this shortness of breath at times over the last several years per is the 1st EKG that has showing AFib. (3) Hypertension: Code(s): I10 - Essential (primary) hypertension Qualifiers: Hypertension type: primary hypertension Qualified Code(s): I10 - Essential (primary) hypertension Plan: Patient's blood pressure elevated today in office. He recently restarted using lisinopril 5 mg. Advised to monitor blood pressure at home. Will start beta-cait Goal blood pressure to be below 140/90. Orders: Orders XR chest 2V 10/03/23 R06.02 - Shortness of breath Complete Blood Count no Diff 10/03/23 I48.0 - Paroxysmal atrial fibrillation Microalbumin, Random (w Creat) 10/03/23 I10 - Essential (primary) hypertension Lipid Panel 10/03/23 I10 - Essential (primary) hypertension Comprehensive [place]. Panel Fast 10/03/23 I10 - Essential (primary) hypertension AMB EKG-In Office 10/03/23 R06.02 - Shortness of breath, Z01.818 - Encounter for other preprocedural examination Referrals Cardiology Referral I48.0 - Paroxysmal atrial fibrillation Medications: New albuterol sulfate 90 mcg/actuation 1 inh inhalation QID PRN 8.5 grams 0RF shortness of breath or wheezing 30 days R06.02 - Shortness of breath metoprolol succinate ER 25 mg PO BID 60 tabs 1RF 30 days I48.0 - Paroxysmal atrial fibrillation Coding Level of Care Code Est Pt Level 4 (43778) Diagnoses Paroxysmal atrial fibrillation I48.0 Atrial fibrillation type: paroxysmal Shortness of breath R06.02 Primary hypertension I10 Hypertension type: primary hypertension CPT Codes EKG - CPT: 01995-[id number], Complete ([id number])
[2023-10-03 15:10] VITALS: BP 150/78; PULSE 92; O2SAT 95; BMI 38.4
== END 2023-10-03 15:57 | disposition home or self-care (01) ==
PROVIDERS: PCP Nurse Practitioner Family; Visit Provider Physician Assistant
DX: I48.0 Paroxysmal atrial fibrillation (principal); R06.02 Shortness of breath; I10 Essential (primary) hypertension
CPT/HCPCS: 93000; 99214

== ENCOUNTER 2023-10-31 14:06 | Outpatient (REF) | payer OTHER, SELFPAY ==
--- NOTE | ~2023-10-31 | XR_ITS ---
EXAMINATION: XR CHEST CLINICAL INFORMATION: Paroxysmal atrial fibrillation COMPARISON: None available. TECHNIQUE: 2 views of the chest were obtained. FINDINGS: There is prominence of the interstitial markings. Thin horizontal linear opacities at the lung bases most likely represent atelectasis. No focal consolidation, charo interstitial pulmonary edema or pneumothorax. No pleural effusion. No significant abnormality is noted involving the heart, mediastinum, bony thorax or soft tissues. XR/XR chest 2V IMPRESSION: No acute cardiopulmonary disease.
[2023-10-31 16:33] LABS: Hematocrit 40.9 % (42.0-52.0); Hemoglobin 13.8 g/dl (14.0-18.0); Mean Corpuscular HGB Conc 33.7 g/dl (31.0-36.0); Mean Corpuscular Hemoglobin 32.6 pg (27.0-33.0); Mean Corpuscular Volume 96.7 fL (80.0-98.0); Mean Platelet Volume 11.1 fL (9.4-12.4); Platelet Count 216 X10*3/uL (160-400); Red Blood Count 4.23 X10*6/uL (4.60-5.80); Red Cell Distribution Width 12.9 % (11.0-16.0)
[2023-10-31 17:11] LABS: B Type Natriuretic Peptide 120 pg/mL (<100)
[2023-10-31 17:13] LABS: Anion Gap 12 (12-20); Blood Urea Nitrogen 16 mg/dL (9-16); Calcium 9.7 mg/dL (8.4-10.2); Carbon Dioxide 28 mmol/L (22-29); Chloride 106 mmol/L (96-108); Estimated Glomerular Filt Rate > 60; Glucose Random 95 mg/dL (60-115); Potassium 4.2 mmol/L (3.3-5.1); Sodium 142 mmol/L (135-145)
[2023-10-31 17:31] LABS: TSH reflex Free T4 1.64 uIU/mL (0.32-4.0)
== END 2023-10-31 14:07 | disposition home or self-care (01) ==
LOC: HO.LAB 14:06
PROVIDERS: PCP Nurse Practitioner Family; Visit Provider Internal Medicine Cardiovascular Disease
DX: I48.0 Paroxysmal atrial fibrillation (principal); R00.2 Palpitations; I10 Essential (primary) hypertension
CPT/HCPCS: 99202; 36415; 71046; 80048; 83880; 84443; 85027; 93005; 99212

== ENCOUNTER 2023-10-31 14:06 | Outpatient (AMB) | payer OTHER, SELFPAY ==
[2023-10-31 14:30] VITALS: BP 130/80; PULSE 111; BMI 38.4
--- NOTE | 2023-10-31 14:30 | A.OFFVIS_ITS ---
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 Recently early October saw in the office because he was getting significantly short of breath at that time was noted to be in atrial fibrillation rapid ventricular response. He was then started on metoprolol therapy at 25 mg b.i.d. long-acting and since then he said he feels better but still has shortness of breath. He still feels rapid heart rate and he monitors is heart rate by his pulse monitor and says he does not believe it because sometimes it is quite elevated. Last fall patient had elevated blood pressure and he would seen was having symptoms of palpitation although there was no associated irregularity noted at that time. He had a Holter monitor last year which did not show any evidence of atrial fibrillation. However he said he is longstanding history of palpitations. Had a stress test at that time which was also unremarkable. He still has exertional shortness of breath but downplays his symptoms at this point time. Denies any clear orthopnea, PND, leg edema. He has not had any recent blood work. He is also very hesitant about standing oral anticoagulant therapy. He said over the last year he has not been working since the of his child and has gained weight and has become more sedentary. He denies any chest pain. No lightheadedness, syncope. He has not taken lisinopril for some time. [facility] Medical History Rheumatoid arthritis GERD (gastroesophageal reflux disease) Hypertension Obstructive sleep apnea syndrome, mild Palpitations Somnolence, daytime Surgical History Status post debridement H/O excision of dermoid cyst No pertinent past surgical history Family History Father No problems noted. Mother No problems noted. Brother No problems noted. Son No problems noted. 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 Cognitive needs: No Hearing needs: No Vision needs: No Review of Systems Const Denies chills, Denies daytime sleepiness, Denies fatigue, Denies fever(s), Denies frequent falls, Denies poor appetite, Denies snoring, Denies stops breathing during sleep, Denies weakness, Denies weight gain and Denies weight loss Eyes Denies loss of vision ENT Denies dizziness and Denies hearing loss Card Denies chest pain, Denies claudication, Denies leg edema, Denies lightheadedness, Denies palpitations, Denies dyspnea, Denies dyspnea on exertion and Denies orthopnea Resp Denies cough, Denies excessive phlegm production, Denies dyspnea, Denies dyspnea on exertion, Denies snoring and Denies wheezing GI Denies abdominal pain, Denies hematochezia, Denies change in bowel habits, Denies nausea and Denies vomiting Denies dysuria and Denies urinary frequency Musc Denies arthralgias, Denies muscle weakness, Denies numbness and Denies other (frequent falls) Skin/Breast Denies nail changes and Denies rash Neuro Denies Abnormal speech present, Denies dizziness, Denies frequent falls, Denies loss of vision, Denies memory loss, Denies numbness and Denies weakness Psych Denies depression and Denies memory loss Endo Denies fatigue and Denies palpitations David/Lymph Reports easy bruising and Reports other (anemia) Aller/Immun Denies wheezing Physical Exam Vital Signs: Last Vital Signs Pulse 111 H 10/31/23 14:30 BP 130/80 10/31/23 14:30 BMI result Body Mass Index 38.4 Const General: cooperative, comfortable, no acute distress and alert Nutritional Appearance: obese Orientation/consciousness: patient oriented x3 Limitations: no limitations HEENT Head: Yes normocephalic and Yes atraumatic Neck Neck: Yes trachea midline, Yes supple and Yes no JVD Resp Effort & Inspection: normal respiratory effort Auscultation: clear to auscultation bilaterally Cardio Jugular venous distension: no JVD Rate: tachycardic Rhythm: abnormal rhythm irregularly irregular Heart sounds: S1 normal heart sound present, S2 normal heart sound present, no click, no gallops, no murmurs and no rubs GI Inspection: Yes obesity Auscultation: normal bowel sounds Skin General skin exam: no rashes or lesions noted Neuro General: patient oriented x3 and no focal motor deficits Speech: No Abnormal speech present Extrem General: Yes no clubbing, cyanosis or edema Office Procedures EKG Details: EKG shows atrial fibrillation with rapid ventricular response [id number], Complete Assessment & Plan Assessment & Plan (1) Afib: Code(s): I48.91 - Unspecified atrial fibrillation Qualifiers: Atrial fibrillation type: paroxysmal Qualified Code(s): I48.0 - Paroxysmal atrial fibrillation Plan: New onset atrial fibrillation since early part of the month with associated symptoms of shortness of breath which has improved with rate control with metoprolol. He is currently off lisinopril therapy. I had a long discussion with him about management of atrial fibrillation and pathophysiology of atrial fibrillation. Most likely cause for atrial fibrillation includes hypertension and possibility of sleep apnea and weight. I suggested workup for sleep apnea but he was not very interested in it. We discussed about management of high b lood pressures important risk factor modulation. We also discussed about risk of stroke especially when we are planning to pursue rhythm control approach at least in the short duration. Long-term oral anticoagulation will depend on lot of factor including left atrial chamber size. His CHADSVASc score of at least 1. He is agreeable to start oral anticoagulation therapy. Will prescribe once a day Xarelto 20 mg daily for better compliance. He also needs better rate control for now and will increase his Toprol-XL to 100 mg daily for once a day. Stop lisinopril therapy. Blood pressure is optimized at this point time. Advised an echocardiogram to assess for LV systolic function left atrial chamber size. Also suggest baseline blood work including BNP and TSH. We discussed about management of atrial fibrillation in details and given his age and symptoms I think he will benefit significantly from rhythm control approach. We discussed 2 approaches including oral anticoagulation therapy for 3-4 weeks followed by synchronized cardioversion and sooner DYLAN guided synchronized cardioversion. Will pursue DYLAN guided cardioversion next week. Advised to call me with any sudden worsening of his symptoms. Will follow up with him after cardioversion. Thank you for allowing me to partake in his care Orders: Orders Basic Metabolic Panel Today I48.0 - Paroxysmal atrial fibrillation TSH reflex Free T4 Today I48.0 - Paroxysmal atrial fibrillation XR chest 2V Today I48.0 - Paroxysmal atrial fibrillation CA echo transthoracic complete Today I48.0 - Paroxysmal atrial fibrillation B Type Natriuretic Peptide Today I48.0 - Paroxysmal atrial fibrillation Complete Blood Count no Diff Today I48.0 - Paroxysmal atrial fibrillation Medications: New metoprolol succinate ER (Toprol XL) 100 mg PO DAILY 30 tabs 5RF rivaroxaban (Xarelto) must administer with evening meal 20 mg PO DAILY 30 tabs 5RF Changed From diclofenac sodium 75 mg PO BID 60 tabs 0RF To diclofenac sodium 75 mg PO BID Discontinued lisinopril Discontinued Reason: Doctor's Order 5 mg PO DAILY 30 tabs 3RF I10 - Essential (primary) hypertension metoprolol succinate ER Discontinued Reason: Doctor's Order 25 mg PO BID 30 days 60 tabs 1RF I48.0 - Paroxysmal atrial fibrillation Coding Level of Care Code New Pt Level 4 (30213) Diagnoses Paroxysmal atrial fibrillation I48.0 Atrial fibrillation type: paroxysmal CPT Codes EKG - CPT: [id number], Complete ([id number])
== END 2023-10-31 15:10 | disposition home or self-care (01) ==
PROVIDERS: PCP Nurse Practitioner Family; Visit Provider Internal Medicine Cardiovascular Disease
DX: I48.0 Paroxysmal atrial fibrillation (principal)
CPT/HCPCS: 93010; 99214

== ENCOUNTER 2023-11-07 11:47 | Day surgery (SDC) | payer OTHER, SELFPAY ==
--- NOTE | 2023-11-06 10:41 | P.CONAN_ITS ---
Documented by User: Lorenza Charlton NP 11/06/23 10:42 HPI - Anesthesia Eval Consult details Narrative: 48yo M for Cardioversion Xarelto for afib PMFSH Active Problems Active Problems: All Active Problems (Updated 10/03/23 @ 15:49 by Fermín Camacho PA-C) Afib (Acute) Shortness of breath (Acute) Effusion, left knee (Acute) Status post arthroscopy of left knee (Acute) Osteoarthritis of left knee (Acute) Skin lesion (Acute) Screening for diabetes mellitus (DM) (Acute) Screening for hypercholesterolemia (Acute) Screening for hypothyroidism (Acute) Erectile dysfunction (Acute) Annual physical exam (Acute) Elevated liver enzymes (Acute) Cystic fibrosis carrier (Acute) Plaque psoriasis (Acute) Internal derangement of left knee (Acute) Tear of meniscus of left knee (Acute) Hypertension (Acute) Obstructive sleep apnea syndrome, mild (Acute) Palpitations (Acute) Somnolence, daytime (Acute) Past Medical History Medical History Rheumatoid arthritis GERD (gastroesophageal reflux disease) Hypertension Obstructive sleep apnea syndrome, mild Palpitations Somnolence, daytime Family History Family History Father No problems noted. Mother No problems noted. Brother No problems noted. Son No problems noted. Family history of problems with anesthesia: No Surgical History Surgical History Status post debridement H/O excision of dermoid cyst No pertinent past surgical history History of Problems with Anesthesia: No Social History Social History Housing: House Patient Tobacco Use Status: Former Tobacco user Quit Date: 13 yrs ago Tobacco use type: Cigarette e-Cigarette/Vaping Use: Never Used Second Hand Smoke Exposure: No Use of substances other than those prescribed or required for medical reasons: Yes Substance Use Frequency: Daily Are you DNR?: No Advance Directives: No Advance Directives Information Provided: Yes service: No 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al status: unemployed 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 Cognitive needs: No Hearing needs: No Vision needs: No Meds Allergies Allergy/AdvReac Type Severity Reaction Status Date / Time aspirin Allergy Unknown nose bleeds Verified 10/03/23 15:26 Home Medications Medication Instructions Recorded Confirmed Last Taken Type guselkumab 100 mg/mL subcutaneous 100 mg subcut 11/01/20 10/31/23 Unknown History auto-injector (Tremfya) blood pressure test kit-large #1 ea 04/12/23 10/03/23 Unknown History ketoconazole 2 % shampoo topical BID 04/12/23 10/31/23 Unknown History diclofenac sodium 75 mg 75 mg PO BID 10/31/23 10/31/23 11/07/23 08:00 History tablet,delayed release Exam Pertinent Lab Results Pertinent Lab Results: Laboratory Tests 10/31/23 15:40 WBC 7.0 Hgb 13.8 L Hct 40.9 L Plt Count 216 Sodium 142 Potassium 4.2 Chloride 106 Carbon Dioxide 28 BUN 16 Creatinine 1.22 Narrative Narrative: EKG 10/2023 Afib with RVR @ 111 Assessment and Plan Assessment Anesthesia Assessment: Chart Reviewed Final Anesthetic Review Family History of Problems with Anesthesia: No History of Problems with Anesthesia: No Documented by User: Ping Tavera MD 11/07/23 13:57 [facility] Active Problems Active Problems: All Active Problems (Updated 11/07/23 @ 13:33 by Ping Tavera MD) Afib (Acute) Shortness of breath (Acute) Effusion, left knee (Acute) Status post arthroscopy of left knee (Acute) Osteoarthritis of left knee (Acute) Skin lesion (Acute) Screening for diabetes mellitus (DM) (Acute) Screening for hypercholesterolemia (Acute) Screening for hypothyroidism (Acute) Erectile dysfunction (Acute) Annual physical exam (Acute) Elevated liver enzymes (Acute) Cystic fibrosis carrier (Acute) Plaque psoriasis (Acute) Internal derangement of left knee (Acute) Tear of meniscus of left knee (Acute) Hypertension (Acute) Obstructive sleep apnea syndrome, mild (Acute) Palpitations (Acute) Somnolence, daytime (Acute) Atrial flutter on EKG today Obesity BMI 37.7 Last dose of Xarelto yesterday evening 11/06/23 Past Medical History Medical History Rheumatoid arthritis GERD (gastroesophageal reflux disease) Hypertension Obstructive sleep apnea syndrome, mild Palpitations Somnolence, daytime Family History Family History Father No problems noted. Mother No problems noted. Brother No problems noted. Son No problems noted. Family history of problems with anesthesia: No Surgical History Surgical History Status post debridement H/O excision of dermoid cyst No pertinent past surgical history History of Problems with Anesthesia: No Social History Social History Housing: House Patient Tobacco Use Status: Former Tobacco user Quit Date: 13 yrs ago Tobacco use type: Cigarette e-Cigarette/Vaping Use: Never Used Second Hand Smoke Exposure: No Use of substances other than those prescribed or required for medical reasons: Yes Substance Use Frequency: Daily Are you DNR?: No Advance Directives: No Advance Directives Information Provided: Yes service: No 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al status: unemployed 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 Cognitive needs: No Hearing needs: No Vision needs: No Meds Allergies Allergy/AdvReac Type Severity Reaction Status Date / Time aspirin Allergy Unknown nose bleeds Verified 10/03/23 15:26 Home Medications Medication Instructions Recorded Confirmed Last Taken Type guselkumab 100 mg/mL subcutaneous 100 mg subcut 11/01/20 10/31/23 Unknown History auto-injector (Tigreya) blood pressure test kit-large #1 ea 04/12/23 10/03/23 Unknown History ketoconazole 2 % shampoo topical BID 04/12/23 10/31/23 Unknown History diclofenac sodium 75 mg 75 mg PO BID 10/31/23 10/31/23 11/07/23 08:00 History tablet,delayed release Exam Height,Weight and Vital Signs: Height 6 ft 1 in Weight 129.727 kg Vital Signs Temp Pulse Resp BP Pulse Ox O2 Del Method 11/07/23 12:34 96.9 F 152 H 16 148/111 H 97 Room Air Airway Mallampati Class: III TM Dist: >3cm Neck ROM: Full Denture: Upper and Lower Loose/Missing/Broken Teeth: Yes Heart: Regular Lungs: CTAB Assessment and Plan Assessment Anesthesia Assessment: Anesthesia Plan Discussed and Chart Reviewed Final Anesthetic Review Family History of Problems with Anesthesia: No History of Problems with Anesthesia: No NPO: Yes ASA Class: III Final Preanesthetic Review: No Changes in Pt Med Stat, Meds/Allgs Chart Reviewed, Consent Obtained/Reviewed and Anes Risks/Benef Reviewed Patient Risk: Intermediate Procedure Risk: Intermediate Assessment/Block/Sedation in SS: Assess/Block/Sedation- Anesthetic Plan Anesthetic Plan: GA, MAC: and TIVA Disposition: Standard PACU
[2023-11-07 12:34] VITALS: BP 148/111; PULSE 152; RESP 16; TEMP 36.1; O2SAT 97; BMI 37.7
--- NOTE | 2023-11-07 12:38 | ECG_ITS ---
Test Reason : ? rhythm Blood Pressure : / mmHG Vent. Rate : 150 BPM Atrial Rate : 300 BPM P-R Int : 000 ms QRS Dur : 082 ms QT Int : 254 ms P-R-T Axes : 092 001 026 degrees QTc Int : 401 ms Atrial flutter with 2:1 A-V conduction Low voltage QRS Junctional ST depression, probably normal Abnormal ECG When compared with ECG of 01-MAY-2023 15:27, Atrial flutter has replaced Sinus rhythm Vent. rate has increased BY [address] now depressed in Inferior leads Nonspecific T wave abnormality now evident in Inferior leads Referred By: Hebert Fuentes Electronically Signed By:HEBERT FUENTES MD
[2023-11-07] MEDS: Lactated Ringers 1,000 ML 100 ML IVCONT (12:55)
--- NOTE | 2023-11-07 13:43 | CA_ITS ---
Transesophageal Echocardiogram Patient (Last, First, Middle): Bran Miles, Gender: Male Date of : 1975 Age: 48 Procedure Date: 11/07/2023 Procedure Type: Transesophageal Echocardiogram Location: OP Height: 180.34 cm Weight: 132. 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 1. Severe LV systolic dysfunction with LVEF of 20-25% 2. Biatrial enlargement, left greater than right 3. No intracardiac thrombi, masses or vegetations 4. No intracardiac shunting 5. Normal pericardium Findings Procedure Information Consent was obtained prior to the procedure. Pre DYLAN oral cavity was checked and revealed significant overcrowding. The adult 3D probe was passed with minimal difficulty. This was a technically good study. Left Ventricle Normal left ventricular cavity size. There is mildly increased left ventricular wall thickness. The left ventricular systolic function is severely decreased. The visually estimated ejection fraction is between 20 25%. Diastolic function is indeterminate on the basis of available data. This appears to be a diffuse process. No intra left ventricular thrombi or masses noted Right Ventricle Normal right ventricular cavity size and systolic function. Atria The left atrium is moderately dilated. There is no evidence of a patent foramen ovale. There is no evidence of an atrial septal defect. smoke formation seen within the left atrial appendage cavity and left atrium. However there no filling defect suggestive of clots or masses within the left atrium or left atrial appendage. The left upper, right upper and right lower pulmonary vein drain normally into the left atrium. The left atrial appendage ejection velocity was preserved. The right atrium is mildly dilated. Right atrium was free of any masses or clots. The IVC and SVC drain normally into the right atrium. Aortic Valve Normal aortic valve structure and function. There is no aortic valve stenosis. There is no aortic valve regurgitation. Mitral Valve Normal mitral valve structure and function. There is mild mitral valve regurgitation. There is no mitral valve stenosis. Pulmonic Valve The pulmonic valve is likely normal. Tricuspid Valve Normal tricuspid valve structure. There is mild tricuspid valve regurgitation. The right ventricular systolic pressure is not calculated. Great Vessels All visible segments of the aorta are normal in size. The pulmonary artery was not well visualized. Venous The inferior vena cava is normal in size and collapses greater than 50% with inspiration. Pericardium/Pleural There is no evidence of pericardial effusion. Updated by Hebert Fuentes on 01:01 PM with Status of Final Hebert Fuentes MD electronically signed on 11/09/2023 1:01:32 PM with status of Final
--- NOTE | 2023-11-07 13:43 | MHC.SHP ---
Pre-Procedural Eval Section A - 24 Hr Update-Section A only Date of Service: 11/07/23 The patient is an INPATIENT: No Changes since office visit: Yes Patient answered all questions; No Cold of Flu in the past 2 weeks, No New Medical Problems and No Changes in Medication The patient has been examined within 24 hours of the surgical procedure. The History & Physical has been completed within 30 days and I have reviewed it.: Yes Section B - Complete if H&P > 30 days Chief Complaint: Unspecified atrial fibrillation Allergies: Allergies Allergy/AdvReac Type Severity Reaction Status Date / Time aspirin Allergy Unknown nose bleeds Verified 10/03/23 15:26 Plan I have reviewed the history and physical and performed a pertinent physical examination on my patient. No changes have occurred unless specified. Time Spent With Patient Time: Total time managing care of this patient today ____ minutes.
--- NOTE | 2023-11-07 14:39 | ECG_ITS ---
Test Reason : S/P CARDIOVERSION Blood Pressure : / mmHG Vent. Rate : 084 BPM Atrial Rate : 084 BPM P-R Int : 152 ms QRS Dur : 086 ms QT Int : 382 ms P-R-T Axes : 062 045 032 degrees QTc Int : 451 ms Normal sinus rhythm Low voltage QRS Borderline ECG When compared with ECG of 07-NOV-2023 12:41, Sinus rhythm has replaced Atrial flutter Vent. rate has decreased BY 66 BPM Referred By: Hebert Fuentes Electronically Signed By:HEBERT FUENTES MD
[2023-11-07 14:40] VITALS: BP 137/83; PULSE 95; RESP 20; TEMP 36.4; O2SAT 92
--- NOTE | 2023-11-07 14:44 | HO.CARDIVERS ---
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 Full report dictated separately History: See my note Consent: Verbal and Written consent was obtained from the patient before starting and after confirming oral anticoagulation use. The patient was made aware of the risk of synchronized cardioversion including benefits and alternatives Procedure: After consent obtained, cardioversion pads were attached anteroposterior configuration and the patient was sedated by the anesthesia team. Once adequate sedation achieved, patient was delivered 200 joules of biphasic synchronized energy in anteroposterior configuration. Complications: Patient developed hypoxemia related to obstructive sleep apnea which was corrected quickly by anesthesia team Impression: Successful conversion to sinus rhythm Recommendations: 1. 12 lead EKG 2. Start on amiodarone loading 400 mg b.i.d. for 2 weeks followed by 200 mg daily 3. Follow up in the office after Holter monitor in 2 weeks and echocardiogram in 4 weeks 4. Reduce metoprolol to 50 mg daily and continue Xarelto 20 mg daily.
[2023-11-07 14:45] VITALS: BP 123/84; PULSE 88; RESP 24; O2SAT 93
[2023-11-07 14:50] VITALS: BP 132/78; PULSE 88; RESP 24; O2SAT 96
[2023-11-07 14:55] VITALS: BP 140/91; PULSE 87; RESP 22; O2SAT 96
[2023-11-07 15:10] VITALS: BP 134/80; PULSE 85; RESP 21; TEMP 36.6; O2SAT 96
[2023-11-07] MEDS: Amiodarone HCL 200 MG TABLET 400 MG PO (15:24)
== END 2023-11-07 15:38 | disposition home or self-care (01) ==
PROVIDERS: PCP Nurse Practitioner Family; Visit Provider Internal Medicine Cardiovascular Disease
PROC: 5A2204Z Restoration of Cardiac Rhythm, Single (ICD-10-PCS; CPT 93312; principal; 2023-11-07 13:30)
DX: I48.0 Paroxysmal atrial fibrillation (principal); I10 Essential (primary) hypertension; R40.0 Somnolence; R00.2 Palpitations; G47.33 Obstructive sleep apnea (adult) (pediatric); M06.9 Rheumatoid arthritis, unspecified; Z79.899 Other long term (current) drug therapy; Z88.8 Allergy status to other drugs, medicaments and biological substances; Z87.891 Personal history of nicotine dependence
CPT/HCPCS: 93312; 92960; 93005; J2250; J2704; Q9957

== ENCOUNTER → 2023-11-07 11:47 | Outpatient (BNV) | payer OTHER, SELFPAY | PROVIDERS: PCP Nurse Practitioner Family; Visit Provider Internal Medicine Cardiovascular Disease | DX: I48.91 Unspecified atrial fibrillation (principal) | CPT/HCPCS: 92960; 93010; 93312; 93320; 93325 ==

== ENCOUNTER → 2023-11-08 08:57 | Outpatient (REF) | payer OTHER, SELFPAY | LOC: HO.SL 08:57 | PROVIDERS: PCP Physician Assistant; Visit Provider Internal Medicine Cardiovascular Disease | DX: G47.33 Obstructive sleep apnea (adult) (pediatric) (principal); R40.0 Somnolence | CPT/HCPCS: 95806 ==

== ENCOUNTER → 2023-11-08 09:10 | Outpatient (BNV) | payer OTHER, SELFPAY | PROVIDERS: PCP Physician Assistant; Visit Provider Internal Medicine | DX: G47.33 Obstructive sleep apnea (adult) (pediatric) (principal) | CPT/HCPCS: 95806 ==

== ENCOUNTER 2023-11-08 09:15 | Emergency (ER) | payer OTHER, SELFPAY ==
--- NOTE | ~2023-11-08 | XR_ITS ---
EXAMINATION: XR CHEST CLINICAL INFORMATION: Shortness of breath COMPARISON: Chest 10/31/2023 TECHNIQUE: 2 views of the chest were obtained. FINDINGS: The lungs are well expanded. Prominence of the interstitial markings is again noted. This is slightly increased compared to the prior study. Peribronchial thickening is again noted. New right small pleural effusion. Linear opacities at the right lung base are consistent with atelectasis. No focal consolidation. No pneumothorax. The cardiomediastinal silhouette is within normal limits. No acute osseous abnormality. XR/XR chest 2V IMPRESSION: Slight interval increase in prominent interstitial markings with new small right pleural effusion.? Interstitial pulmonary edema.
[2023-11-08 09:18] VITALS: BP 192/121; PULSE 80; RESP 18; TEMP 35.9; O2SAT 99; BMI 37.6
--- NOTE | 2023-11-08 09:22 | ECG_ITS ---
Test Reason : dyspnea Blood Pressure : / mmHG Vent. Rate : 072 BPM Atrial Rate : 072 BPM P-R Int : 150 ms QRS Dur : 088 ms QT Int : 414 ms P-R-T Axes : -15 013 035 degrees QTc Int : 453 ms Normal sinus rhythm Low voltage QRS Borderline ECG When compared with ECG of 07-NOV-2023 14:55, No significant change was found Referred By: Generic ED Physician Electronically Signed By:YASIR CHANDLER MD
[2023-11-08 10:40] LABS: MANUAL DIFF FLAG NO
[2023-11-08 10:43] LABS: Basophils Percent Auto 0.3 % (0-2); Eosinophils Absolute Auto 0.2 X10*3/uL (0.0-0.4); Hematocrit 38.2 % (42.0-52.0); Hemoglobin 12.9 g/dl (14.0-18.0); Imm Gran Abs Auto 0.01 X10*3/uL (0.00-0.03); Imm Gran Pct Auto 0.1 % (0.0-0.4); Lymphocytes Absolute Auto 1.5 X10*3/uL (1.2-4.9); Mean Corpuscular HGB Conc 33.8 g/dl (31.0-36.0); Mean Corpuscular Hemoglobin 32.5 pg (27.0-33.0); Mean Corpuscular Volume 96.2 fL (80.0-98.0); Mean Platelet Volume 10.6 fL (9.4-12.4); Monocytes Absolute Auto 0.4 X10*3/uL (0.1-1.2); Monocytes Percent Auto 5.8 % (2-11); Neutrophils Absolute Auto 4.8 x10*3/uL (2.0-8.3); Neutrophils Percent Auto 69.8 % (45-73); Platelet Count 175 X10*3/uL (160-400); Red Blood Count 3.97 X10*6/uL (4.60-5.80); Red Cell Distribution Width 13.2 % (11.0-16.0); White Blood Count 6.9 X10*3/uL (4.8-10.8)
[2023-11-08 10:53] LABS: Anion Gap 12 (12-20); Blood Urea Nitrogen 15 mg/dL (9-16); Calcium 9.3 mg/dL (8.4-10.2); Carbon Dioxide 24 mmol/L (22-29); Chloride 109 mmol/L (96-108); Creatinine Clr Calc Pharmacy 117.7; Estimated Glomerular Filt Rate > 60; Glucose Random 126 mg/dL (60-115); Potassium 4.3 mmol/L (3.3-5.1); Sodium 141 mmol/L (135-145)
[2023-11-08 11:01] LABS: Troponin-I High Sensitivity 18.8 ng/L (<3.5-35.0)
--- NOTE | 2023-11-08 12:02 | ED.GENADULT ---
HPI - General Adult General Chief complaint: Dyspnea Stated complaint: SOB Time Seen by Provider: 11/08/23 11:54 History of Present Illness HPI narrative: Patient is a 48-year-old male who was recently found to have atrial fibrillation/flutter. He was cardioverted to a sinus rhythm yesterday by Dr. Fuentes. Apparently after the cardioversion last night the patient had significant orthopnea and paroxysmal nocturnal dyspnea and felt very exertionally dyspneic today. He had come to the hospital to nut picker a sleep apnea machine when he happened to run into Dr. Fuentes and he described his symptoms. Dr. Fuentes recommended he come to the emergency room. No fever, sweats, chills. No peripheral edema. No chest pain. Related Data Home Medications Medication Instructions Recorded Confirmed guselkumab 100 mg/mL subcutaneous 100 mg subcut 11/01/20 10/31/23 auto-injector (Tremfya) blood pressure test kit-large #1 ea 04/12/23 10/03/23 ketoconazole 2 % shampoo topical BID 04/12/23 10/31/23 diclofenac sodium 75 mg 75 mg PO BID 10/31/23 10/31/23 tablet,delayed release Previous Rx's Medication Instructions Recorded albuterol sulfate 90 mcg/actuation 1 inh inhalation QID PRN shortness 10/03/23 aerosol inhaler of breath or wheezing 30 days #8.5 grams rivaroxaban 20 mg tablet (Xarelto) 20 mg PO DAILY #30 tabs 10/31/23 amiodarone 400 mg tablet 400 mg PO Q12H 2 weeks #28 tabs 11/07/23 metoprolol succinate 100 mg 50 mg (1/2 x 100 mg) PO DAILY #30 11/07/23 tablet,extended release 24 hr tabs (Toprol XL) furosemide 20 mg tablet 20 mg PO DAILY #30 tabs 11/08/23 Allergies Allergy/AdvReac Type Severity Reaction Status Date / Time aspirin Allergy Unknown nose bleeds Verified 10/03/23 15:26 Review of Systems Review of Systems: Yes all other systems are reviewed and are negative [facility] Past Medical History Medical History Rheumatoid arthritis GERD (gastroesophageal reflux disease) Hypertension Obstructive sleep apnea syndrome, mild Palpitations Somnolence, daytime Surgical History Status post debridement H/O excision of dermoid cyst No pertinent past surgical history Family History Family History Father No problems noted. Mother No problems noted. Brother No problems noted. Son No problems noted. 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 ?Mucous membranes moist. Eyes Other: Pupils are round equal, conjunctivae are clear, extraocular movements intact Neck Other: No obvious JVD Resp Other: Possibly some minimal crackles at the bases. No wheezes. No obvious increased respiratory effort. Cardio Rate: regular rate Rhythm: regular rhythm Heart sounds: S1 normal heart sound present and S2 normal heart sound present GI Other: Abdomen is soft and nontender Skin Other: Pale and dry Neuro Other: Awake, alert,, appropriate, moving all 4 extremities normally, normal gait Extrem Other: No peripheral edema. No calf swelling or tenderness. No asymmetry. Medications Administered Discontinued Medications Generic Name Dose Route Start Last Admin Trade Name Freq PRN Reason Stop Dose Admin Furosemide 40 mg 11/08/23 12:03 11/08/23 12:47 Furosemide 40 Mg/4 Ml Vial IVPUSH 11/08/23 12:04 40 mg ONCE STA Administration Protocol Medical Decision Making Medical Decision Making MDM Narrative: Patient is a very pleasant 48-year-old who has apparently been in atrial fibrillation with rapid ventricular response for 2 weeks until yesterday when he had an outpatient electrical cardioversion immediately after a transesophageal echocardiogram showed no atrial clot. Apparently the echocardiogram showed an ejection fraction of 20%. He has not previously been diagnosed with a cardiomyopathy or congestive heart failure. He has not been on diuretics. He is on metoprolol, amiodarone, and rivaroxaban. Here the patient described paroxysmal nocturnal dyspnea, orthopnea, and exertional dyspnea. His chest x-ray was read as showing possibly some mild increased interstitial markings consistent with mild pulmonary edema. He was given 40 mg of IV furosemide and had a moderate diuresis. He was then able to walk around quite well without exertional dyspnea. He was able to go up 2 flights of stairs without remarkable dyspnea. He felt well enough for discharge. He was seen by his reliability specialist here in the emergency room. He will be discharged with his current medications as well as a new prescription for furosemide 20 mg daily. Lab Data 11/08/23 10:36 11/08/23 10:36 Labs: Lab Results 11/08/23 11/08/23 Range/Units 10:36 13:57 WBC 6.9 (4.8-10.8) X10*3/uL RBC 3.97 L (4.60-5.80) X10*6/uL Hgb 12.9 L (14.0-18.0) g/dl Hct 38.2 L (42.0-52.0) % MCV 96.2 (80.0-98.0) fL MCH 32.5 (27.0-33.0) pg MCHC 33.8 (31.0-36.0) g/dl RDW 13.2 (11.0-16.0) % Plt Count 175 (160-400) X10*3/uL MPV 10.6 (9.4-12.4) fL Immature Gran % (Auto) 0.1 (0.0-0.4) % Neut % (Auto) 69.8 (45-73) % Lymph % (Auto) 21.0 (20-40) % Mcintosh % (Auto) 5.8 (2-11) % Eos % (Auto) 3.0 (0-4) % Baso % (Auto) 0.3 (0-2) % Lymph # (Auto) 1.5 (1.2-4.9) X10*3/uL Mcintosh # (Auto) 0.4 (0.1-1.2) X10*3/uL Eos # (Auto) 0.2 (0.0-0.4) X10*3/uL Baso # (Auto) 0.0 (0.0-0.2) X10*3/uL Abs Immat Gran (auto) 0.01 (0.00-0.03) X10*3/uL Absolute Neuts (auto) 4.8 (2.0-8.3) x10*3/uL Absolute Nucleated RBC 0.000 (0.0-0.012) X10*3/uL Nucleated RBC % (auto) 0.0 (0.0-0.2) /100WBC D-Dimer High Sensitivty 198 NG/ML Sodium 141 (135-145) mmol/L Potassium 4.3 (3.3-5.1) mmol/L Chloride 109 H (96-108) mmol/L Carbon Dioxide 24 (22-29) mmol/L Anion Gap 12 (12-20) BUN 15 (9-16) mg/dL Creatinine 1.07 (0.5-1.4) mg/dL Estim Creat Clear Calc 117.7 Estimated GFR > 60 Random Glucose 126 H (60-115) mg/dL Calcium 9.3 (8.4-10.2) mg/dL Troponin I High Sens 18.8 (<3.5-35.0) ng/L B-Natriuretic Peptide 30 (<100) pg/mL Independent Interpretation I performed an independent interpretation of an: EKG Interpretation: EKG at 09:37 shows normal sinus rhythm at 72 beats per minute. No definite acute ischemic changes. Discharge Plan Discharge Clinical Impression: Shortness of breath on exertion Patient Disposition: Home, Self-Care Additional Instructions: Please continue the medications you have been previously prescribed including amiodarone, metoprolol, and rivaroxaban. I believe you are supposed to take the 50 mg tablets of metoprolol. Additionally I have sent a prescription for medication called furosemide which helps remove fluid from the body. Take this once a day in the mornings. Please make sure you have a follow-up appointment with your reliability specialist soon. Return to the emergency room if he feels significantly worse. Prescriptions: New furosemide 20 mg tablet 20 mg PO DAILY Qty: 30 0RF No Action metoprolol succinate [Toprol XL] 100 mg tablet extended release 24 hr 50 mg PO DAILY Qty: 30 5RF amiodarone 400 mg tablet 400 mg PO Q12H 14 Days Qty: 28 0RF Tremfya 100 mg/mL auto-injector 100 mg subcut albuterol sulfate 90 mcg/actuation HFA aerosol inhaler 1 inh inhalation QID PRN (Reason: shortness of breath or wheezing) 30 Days Qty: 8.5 0RF (DME) blood pressure test kit-large Kit See Rx Instructions .ROUTE DIRECTED Qty: 1 Rx Instructions: As directed ketoconazole 2 % shampoo topical BID diclofenac sodium 75 mg tablet,delayed release (DR/EC) 75 mg PO BID Xarelto 20 mg tablet 20 mg PO DAILY Qty: 30 5RF Rx Instructions: must administer with evening meal Referrals: Hebert Fuentes MD [Physician] - (cardiomyopathy) Stand Alone Forms: Work/School Release Interventions: ED Discharge Assessment Last Done: 11/08/23 15:26 Discharge Date/Time: 11/08/23 15:27
[2023-11-08] MEDS: Furosemide 40 MG/4 ML VIAL IVPUSH (12:47)
[2023-11-08 12:50] VITALS: BP 143/96; PULSE 73; RESP 16; TEMP 36.8; O2SAT 96
[2023-11-08 12:50] LABS: B Type Natriuretic Peptide 30 pg/mL (<100)
[2023-11-08 13:40] VITALS: BP 138/85; PULSE 69; RESP 16; TEMP 36.8; O2SAT 98
[2023-11-08 14:15] LABS: D Dimer High Sensitivity 198 NG/ML
== END 2023-11-08 15:27 | disposition home or self-care (01) ==
PROVIDERS: Emergency Provider Emergency Medicine; PCP Physician Assistant
DX: R06.02 Shortness of breath (principal); I48.91 Unspecified atrial fibrillation; I10 Essential (primary) hypertension; Z79.899 Other long term (current) drug therapy
CPT/HCPCS: 36415; 71046; 80048; 83880; 84484; 85025; 85379; 93005; 96374; 99284; J1940

== ENCOUNTER → 2023-11-08 09:22 | Outpatient (BNV) | payer OTHER, SELFPAY | PROVIDERS: Emergency Provider Emergency Medicine; PCP Physician Assistant; Visit Provider Internal Medicine Cardiovascular Disease | DX: R06.09 Other forms of dyspnea (principal) | CPT/HCPCS: 93010 ==

== ENCOUNTER 2023-11-15 15:16 | Outpatient (AMB) | payer OTHER, SELFPAY ==
--- NOTE | 2023-11-15 15:20 | A.OFFVIS_ITS ---
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 Required: No Allergies aspirin Allergy (Unknown, Verified 11/15/23 15:23) nose bleeds Medication List - Last Reconciled 11/15/23 by Maya Merida NP-C albuterol sulfate 90 mcg/actuation 1 inh inhalation QID PRN 30 days amiodarone 400 mg PO Q12H 2 weeks blood pressure test kit-large As directed furosemide 20 mg PO DAILY guselkumab (Tremfya) 100 mg subcut ketoconazole 2% topical BID metoprolol succinate ER (Toprol XL) 50 mg (1/2 x 100 mg) PO DAILY rivaroxaban (Xarelto) 20 mg PO DAILY HPI follow-up Dr Fuentes HPI Details Bran is a 48-year-old male past medical history of obesity, hypertension, heart palpitations, newer finding of atrial fibrillation who recently underwent a transesophageal echo and cardioversion with finding of cardiomyopathy. He was started on amiodarone to help maintain sinus rhythm. A sleep study showed mild obstructive sleep apnea. He now presents for follow-up. Today he reports that he has been doing well since his cardioversion. He had some brief palpitations last evening that resolved without treatment. He has been taking his medications as directed. He continues on the amiodarone loading dose at present. No chest discomfort at rest or with activity. No shortness of breath, lightheadedness, presyncope, syncope, falls. No PND, orthopnea or edema. He tells me that his ankles were swollen on the day he went in for the cardioversion but they have not been since that time. 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 He takes his daughter for a walk frequently which he says he tolerates well. No bleeding issues reported. He says he has insomnia and does not sleep well normally. He will not use a CPAP mask. [facility] Medical History Rheumatoid arthritis GERD (gastroesophageal reflux disease) Hypertension Obstructive sleep apnea syndrome, mild Palpitations Somnolence, daytime Surgical History Status post debridement H/O excision of dermoid cyst No pertinent past surgical history Family History Father No problems noted. Mother No problems noted. Brother No problems noted. Son No problems noted. 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 Cognitive needs: No Hearing needs: No Vision needs: No Review of Systems Const All systems reviewed & are unremarkable except as noted in HPI and below Denies fatigue and Denies lethargy Card Denies chest pain, Denies chest pain at rest, Denies chest pain with activity, Denies syncope, Denies rapid heart rate, Denies palpitations, Denies dyspnea on exertion and Denies orthopnea Resp Denies dyspnea on exertion GI Denies no additional complaints Musc Denies abnormal gait and Denies muscle weakness Neuro Denies abnormal gait and Denies syncope Psych Details: insomnia Reports abnormal sleep pattern Endo Denies fatigue and Denies palpitations Physical Exam Vital Signs: Last Vital Signs Pulse 66 11/15/23 15:22 BP 134/72 11/15/23 15:22 BMI result Body Mass Index 37.8 Const General: cooperative, healthy appearing, comfortable and no acute distress Orientation/consciousness: patient oriented x3 Neck Neck: Yes normal visual inspection and Yes no JVD Resp Effort & Inspection: normal respiratory effort Auscultation: clear to auscultation bilaterally, no rales, no rhonchi and no wheezes Cardio Jugular venous distension: no JVD Rate: regular rate Rhythm: regular rhythm Heart sounds: S1 normal heart sound present, S2 normal heart sound present, no murmurs and no rubs Neuro General: patient oriented x3 Extrem General: Yes normal to inspection and No no pedal edema Psych Appearance: grossly normal Mental Status: mental status grossly normal Speech and movement: Normal speech and movement present Office Procedures EKG Details: Today, read by me, normal sinus rhythm, no acute ST or T-wave abnormalities, rate 66, QTC 465 millisecond [id number], Complete Assessment & Plan Assessment & Plan (1) Afib: Code(s): I48.91 - Unspecified atrial fibrillation Qualifiers: Atrial fibrillation type: paroxysmal Qualified Code(s): I48.0 - Paroxysmal atrial fibrillation Plan: History of heart palpitations. Newer finding of atrial fibrillation which had been persistent. Underwent a transesophageal echocardiogram and cardioversion on 11/07/2023 with successful conversion to normal sinus rhythm. He was started on amiodarone loading dose of 400 mg b.i.d. for 2 weeks then will cut back to 200 mg once daily. His metoprolol dose had been decreased from 100 mg daily down to 50 mg daily. He was continued on Xarelto. His transesophageal echocardiogram had shown EF 20-25%, biatrial enlargement, left greater than right. The cardiomyopathy is a new finding for him and could be related to the atrial fibrillation with RVR. Today he reports feeling well with no concerning symptoms. He says he had some brief heart palpitations last evening. EKG today shows normal sinus rhythm, QTC 465 milliseconds, rate 66. Labs done on 11/08/2023 showed creatinine 1.07. Continue on current meds including amiodarone, metoprolol and Xarelto. Will have him recheck labs prior to next visit to assess for any amiodarone toxicity including LFTs and TSH. He has Holter monitor pending and an echocardiogram planned 1 month after the transesophageal echo. He has a cardiology follow-up visit scheduled for 12/13/2023 which we will keep at this time. Instructed to notify this office if he has recurrent heart palpitations. (2) Cardiomyopathy: Code(s): I42.9 - Cardiomyopathy, unspecified Plan: New finding of cardiomyopathy with EF 20-25%. He reports having some mild swelling in his ankles on the day of the DYLAN cardioversion however has not had any swelling since that time. On examination he has no clinical signs heart failure. He denies having shortness of breath, PND, orthopnea. Cardiomyopathy reviewed with him in detail. Unclear cause at present. Could be related to uncontrolled heart rates. Cardiac risk factors obesity, hypertension. Ischemia has not been ruled out as of yet. He does not have any anginal symptoms. He is on metoprolol XL 50 mg daily for heart rate control and can be used for neurohormonal modulation. He is also on low-dose Lasix. He has a repeat echocardiogram planned for the end of this month. If EF remains down then ischemic eval will be pursued and further medication for neurohormonal modulation added. (3) Obstructive sleep apnea syndrome, mild: Code(s): G47.33 - Obstructive sleep apnea (adult) (pediatric) Plan: Recent sleep study showing mild obstructive sleep apnea. He does have comorbidities and atrial fibrillation. Asked if he would consider using a mask at nighttime and he strongly declines. He reports having chronic insomnia. Diagnosis of sleep apnea reviewed in detail including how it affects his heart. He states understanding. (4) Hypertension: Code(s): I10 - Essential (primary) hypertension Qualifiers: Hypertension type: primary hypertension Qualified Code(s): I10 - Essential (primary) hypertension Plan: Well controlled at this time. No medication changes being made. Plan Time spent on chart review, documentation, interview and assessment Coding Level of Care Code Est Pt Level 4 (81073) Diagnoses Paroxysmal atrial fibrillation I48.0 Atrial fibrillation type: paroxysmal Cardiomyopathy I42.9 Obstructive sleep apnea syndrome, mild G47.33 Primary hypertension I10 Hypertension type: primary hypertension CPT Codes EKG - CPT: [id number], Complete ([id number]) Time Spent (min) 28
[2023-11-15 15:22] VITALS: BP 134/72; PULSE 66; BMI 37.8
== END 2023-11-15 15:52 | disposition home or self-care (01) ==
PROVIDERS: PCP Physician Assistant; Visit Provider Nurse Practitioner Family
DX: I48.0 Paroxysmal atrial fibrillation (principal); I42.9 Cardiomyopathy, unspecified; G47.33 Obstructive sleep apnea (adult) (pediatric); I10 Essential (primary) hypertension
CPT/HCPCS: 93010; 99214

== ENCOUNTER → 2023-11-15 15:16 | Outpatient (BNVA) | payer OTHER, SELFPAY | PROVIDERS: PCP Physician Assistant; Visit Provider Nurse Practitioner Family | DX: I48.0 Paroxysmal atrial fibrillation (principal); I42.9 Cardiomyopathy, unspecified; I10 Essential (primary) hypertension; G47.33 Obstructive sleep apnea (adult) (pediatric) | CPT/HCPCS: 93005; 99212 ==

== ENCOUNTER 2023-11-21 09:43 | Outpatient (REF) | payer OTHER, SELFPAY ==
[2023-11-21 10:33] LABS: Hematocrit 43.7 % (42.0-52.0); Hemoglobin 14.7 g/dl (14.0-18.0); Mean Corpuscular HGB Conc 33.6 g/dl (31.0-36.0); Mean Corpuscular Hemoglobin 31.8 pg (27.0-33.0); Mean Corpuscular Volume 94.6 fL (80.0-98.0); Mean Platelet Volume 10.6 fL (9.4-12.4); Platelet Count 188 X10*3/uL (160-400); Red Blood Count 4.62 X10*6/uL (4.60-5.80); Red Cell Distribution Width 12.4 % (11.0-16.0); White Blood Count 6.5 X10*3/uL (4.8-10.8)
[2023-11-21 11:06] LABS: Creatinine Urine 233.01 mg/dL
[2023-11-21 11:09] LABS: Alanine Aminotransferase 41 U/L (0-40); Albumin Level 4.6 g/dL (3.5-5.0); Alkaline Phosphatase 99 U/L (39-117); Anion Gap 11 (12-20); Aspartate Amino Transferase 28 U/L (5-37); Bilirubin Total 0.9 mg/dL (0.0-1.0); Blood Urea Nitrogen 13 mg/dL (9-16); Calcium 9.3 mg/dL (8.4-10.2); Carbon Dioxide 27 mmol/L (22-29); Chloride 109 mmol/L (96-108); Cholesterol 191 mg/dL (<200); Estimated Glomerular Filt Rate > 60; Glucose Fasting 121 mg/dL (60-99); HDL Cholesterol 38 mg/dL (>40); LDL Cholesterol Calculated 125 mg/dL (<100); Potassium 4.7 mmol/L (3.3-5.1); Sodium 142 mmol/L (135-145); Total Protein 7.8 g/dL (6.5-8.0); Triglycerides 141 mg/dL (<150)
== END 2023-11-21 09:44 | disposition home or self-care (01) ==
LOC: HO.LAB 09:43
PROVIDERS: Absent Provider Nurse Practitioner Family; PCP Physician Assistant; Referring Provider Internal Medicine Cardiovascular Disease; Visit Provider Physician Assistant
DX: I10 Essential (primary) hypertension (principal); I48.0 Paroxysmal atrial fibrillation
CPT/HCPCS: 36415; 80053; 80061; 82043; 82570; 85027

== ENCOUNTER → 2023-11-22 13:00 | Outpatient (REF) | payer OTHER, SELFPAY ==
--- NOTE | 2023-11-22 13:02 | HM_ITS ---
* Total monitoring time 2 days and 10 hours. * Underlying rhythm is sinus with an average rate of 78/Min. * Episodes of atrial fibrillation with rapid rate noted. Overall burden about 10%. Longest episode 3 hours and 30 minutes. Fastest 160/Min. * Occasional PVCs with a burden of 0.3%. Some couplets and triplets. Short runs up to 13 beats described. Some of these could also be aberrantly conducted atrial fibrillation with rapid rates. * No significant pauses or AV blocks. * Patient marker used once in association with sinus rhythm and supraventricular ectopy. No diary events. MTDD
== END ==
LOC: HO.CARD 13:00
PROVIDERS: PCP Physician Assistant; Visit Provider Internal Medicine Cardiovascular Disease
DX: I48.0 Paroxysmal atrial fibrillation (principal)
CPT/HCPCS: 93242

== ENCOUNTER → 2023-11-22 13:02 | Outpatient (BNV) | payer OTHER, SELFPAY | PROVIDERS: PCP Physician Assistant; Visit Provider Internal Medicine | DX: I48.0 Paroxysmal atrial fibrillation (principal) | CPT/HCPCS: 93244 ==

== ENCOUNTER → 2023-12-06 12:52 | Outpatient (REF) | payer OTHER, SELFPAY ==
--- NOTE | 2023-12-06 12:54 | CA_ITS ---
Transthoracic Echocardiogram Patient (Last, First, Middle): Bran Miles, Gender: Male Date of : 1975 Age: 48 Procedure Date: 12/06/2023 Procedure Type: Transthoracic Echocardiogram Location: OP Height: 185. cm Weight: 129.28 kg BSA: 2.50 m2 Heart Rate: 62 bpm BP: 148 / 80 mmHg Timber Supervisor: GIDEON Referring MD: Hebert Fuentes MD Symptoms: I48.0 - Paroxysmal atrial fibrillation Study Quality: Fair ECG Rhythm: Sinus Conclusions: - The left ventricular systolic function is normal. The calculated ejection fraction is 57% by biplane method. - The left atrium is moderately dilated. - No obvious valvular pathology seen on this study. Findings Left Ventricle Normal left ventricular cavity size. There is normal left ventricular wall thickness. The left ventricular systolic function is normal. The calculated ejection fraction is 57% by biplane method. There is no evidence of regional wall motion abnormalities. Diastolic function is normal for age. LV peak GLS -18%. Right Ventricle Mildly increased right ventricular cavity size. There is normal right ventricular systolic function. Atria The left atrium is moderately dilated. The right atrium is normal in size. Aortic Valve There is a normal trileaflet aortic valve. There is no aortic valve stenosis. There is no aortic valve regurgitation. Mitral Valve The mitral valve appears normal. There is trace mitral valve regurgitation. There is no mitral valve stenosis. Pulmonic Valve The pulmonic valve is likely normal. Tricuspid Valve Normal tricuspid valve structure. There is trace tricuspid valve regurgitation. There is no evidence of pulmonary hypertension. Great Vessels The asc aorta is normal in size. Venous The inferior vena cava is normal in size and collapses greater than 50% with inspiration. Pericardium/Pleural There is no evidence of pericardial effusion. Prior Study Comparison Changes noted compared to prior study dated: 11/07/2023. Improved LVEF. Recommendations, Care & Conclusions No obvious valvular pathology seen on this study. Measurements 2D Linear Measurements IVSd: 0.94 0.6-0.9/0.6-1.0 cm LVIDd: 4.80 3.9-5.3/4.2-5.9 cm LVIDd Index: 1.92 2.4-3.2/2.2-3.1 cm/m2 LVIDs: 3.08 2.0-3.6 cm LVPWd: 1.00 0.7-1.1 cm LA Diam: 4.20 2.7-3.8/3.0-4.0 cm LAIDs Index: 1.68 1.5-2.3 cm/m2 LV Mass: 203.56 67-162/88-224 g LV Mass Index: 81.42 43-95/49-115 g/m2 LVOT Diam: 2.20 3.0+(-)1.3 cm 2D Systolic Function EF 4C: 60.80 >55% EF 2C: 53.70 >55% EF BiP: 57.20 >55% Mitral Valve MV Pk E: 1.28 MV PK A: 0.70 MV Decel Time: 191.00 E/A: 1.80 E'Lateral: 10.30 E'Medial: 8.49 E/E' Med: 15.10 E/E' Lat: 12.40 PHT: 56.00 MVA PHT: 3.93 Decel [place]: 6.71 Aortic Valve AoV Pk Zen: 1.72 AoV Mn Zen: 1.19 AoV VTI: 0.39 AoV Pk Grad: 12.00 Aov Mn Grad: 6.00 KIM Cont.VTI: 2.55 LVOT LVOT Pk Zen: 1.17 LVOT Mn Zen: 0.86 LVOT VTI: 0.26 LVOT Pk Grad: 5.00 LVOT Mn Grad: 3.00 LVOT Diam: 2.20 LVOT Area: 3.80 Diastolic Function MV Pk E: 1.28 MV Pk A: 0.70 E/A: 1.80 E'Medial: 8.49 E/E' Med: 15.10 E' Laterial: 10.30 E/E' Lat: 12.40 Right Ventricle TAPSE (mm): 28.50 TVS' Zen: 13.20 Tricuspid Valve TR Pk Zen: 1.91 TR Pk Grad: 15.00 RA Press: 3.00 RVSP: 18.00 Great Vessels Aorta Sinus of Valsalva: 3.60 2.0-3.5 cm Ao Asc: 3.40 2.1-3.4 cm Pulmonary Valve PV Pk Zen: 0.77 Peak PV Grad: 2.00 Updated in Other Vendor System with Status of Final Ephraim Collins MD electronically signed on 12/07/2023 11:25:49 AM with status of Final
== END ==
LOC: HO.CARD 12:52
PROVIDERS: PCP Physician Assistant; Visit Provider Internal Medicine Cardiovascular Disease
DX: I48.0 Paroxysmal atrial fibrillation (principal)
CPT/HCPCS: 93306

== ENCOUNTER → 2023-12-06 12:54 | Outpatient (BNV) | payer OTHER, SELFPAY | PROVIDERS: PCP Physician Assistant; Visit Provider Internal Medicine | DX: I48.0 Paroxysmal atrial fibrillation (principal) | CPT/HCPCS: 93306 ==

== ENCOUNTER 2023-12-13 14:55 | Outpatient (REF) | payer OTHER, SELFPAY ==
[2023-12-13 18:06] LABS: B Type Natriuretic Peptide 59 pg/mL (<100)
[2023-12-13 18:10] LABS: Blood Urea Nitrogen 12 mg/dL (9-16); Calcium 9.3 mg/dL (8.4-10.2); Carbon Dioxide 27 mmol/L (22-29); Chloride 106 mmol/L (96-108); Glucose Random 93 mg/dL (60-115); Sodium 141 mmol/L (135-145)
[2023-12-13 18:35] LABS: Anion Gap 12 (12-20)
[2023-12-13 19:14] LABS: Estimated Glomerular Filt Rate > 60
== END 2023-12-13 14:56 | disposition home or self-care (01) ==
LOC: HO.LAB 14:55
PROVIDERS: PCP Physician Assistant; Visit Provider Internal Medicine Cardiovascular Disease
DX: I42.9 Cardiomyopathy, unspecified (principal); I48.92 Unspecified atrial flutter; I11.0 Hypertensive heart disease with heart failure; I50.9 Heart failure, unspecified
CPT/HCPCS: 36415; 80048; 83880; 93005; 99212

== ENCOUNTER 2023-12-13 14:55 | Outpatient (AMB) | payer OTHER, SELFPAY ==
[2023-12-13 15:02] VITALS: BP 120/70; PULSE 64; BMI 38.1
--- NOTE | 2023-12-13 15:02 | MHC.OFFVIS ---
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 He says he feeling very well. His shortness of breath has significantly improved. His heart failure syndrome has improved. Most recent echocardiogram shows normalized LV systolic function. BNP few weeks ago was normalized as well. Ran out of Lasix few days ago and has not had any worsening symptoms. 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 He denies any prolonged irregular heartbeat or flutter. Denies any lightheadedness, syncope. No bleeding issues or neurologic events. He has been very compliant with his medications. His home sleep study does show evidence of mild obstructive sleep apnea. He declines to dual in-lab sleep study. Denies any exertional chest pain. [facility] Medical History Rheumatoid arthritis GERD (gastroesophageal reflux disease) Hypertension Obstructive sleep apnea syndrome, mild Palpitations Somnolence, daytime Surgical History Status post debridement H/O excision of dermoid cyst No pertinent past surgical history Family History Father No problems noted. Mother No problems noted. Brother No problems noted. Son No problems noted. 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 Cognitive needs: No Hearing needs: No Vision needs: No Review of Systems Const Denies chills, Denies fatigue, Denies fever(s), Denies frequent falls, Denies weakness, Denies weight gain and Denies weight loss ENT Denies dizziness Card Denies chest pain, Denies leg edema, Denies lightheadedness, Denies palpitations, Denies dyspnea, Denies dyspnea on exertion, Denies orthopnea and Denies other (loss of consciousness) Resp Denies cough, Denies dyspnea and Denies dyspnea on exertion GI Denies hematochezia and Denies change in stool character Musc Denies abnormal gait, Denies muscle weakness, Denies numbness, Denies radiating pain into limb and Denies tingling Neuro Denies abnormal gait, Denies dizziness, Denies frequent falls, Denies numbness, Denies tingling and Denies weakness Endo Denies fatigue and Denies palpitations Physical Exam Vital Signs: Last Vital Signs Pulse 64 12/13/23 15:02 BP 120/70 12/13/23 15:02 BMI result Body Mass Index 38.1 Const General: cooperative, healthy appearing, comfortable and no acute distress Orientation/consciousness: patient oriented x3 Neck Neck: Yes normal visual inspection and Yes no JVD Resp Effort & Inspection: normal respiratory effort Auscultation: clear to auscultation bilaterally, no rales, no rhonchi and no wheezes Cardio Jugular venous distension: no JVD Rate: regular rate Rhythm: regular rhythm Heart sounds: S1 normal heart sound present, S2 normal heart sound present, no murmurs and no rubs Neuro General: patient oriented x3 Extrem General: Yes normal to inspection and No no pedal edema Psych Appearance: grossly normal Mental Status: mental status grossly normal Speech and movement: Normal speech and movement present Office Procedures EKG Details: EKG shows normal sinus rhythm with normal EKG with normal interval [id number], Complete Assessment & Plan Assessment & Plan (1) Congestive heart failure: Code(s): I50.9 - Heart failure, unspecified Plan: Congestive heart failure syndrome post cardioversion related to atrial stunning and severe LV systolic dysfunction which is secondary to tachycardia mediated cardiomyopathy. Since then he is done well on current medical therapy with rhythm control approach with normalized LV systolic function. No clinical signs of congestive heart failure. Will check BNP again. BNP is normalized again will discontinue furosemide therapy. Continue aggressive rhythm control approach, see below. (2) Atrial flutter: Code(s): I48.92 - Unspecified atrial flutter Plan: Difficult control atrial flutter with rapid ventricular response causing severe LV systolic dysfunction. He is status post synchronized cardioversion amiodarone therapy. Has done extremely well with rhythm control approach with normalized clinical syndrome of heart failure as well as symptoms. He is back to his high level functionality. Continue full oral anticoagulation with Xarelto 20 mg daily. I think clinically has very high likelihood of obstructive sleep apnea and suggest home sleep study but he absolutely declines to do it. Continue participate in weight loss program. Continue aggressive blood pressure control which currently appears to be well optimized. Low-salt diet was discussed. Avoidance of stimulants was discussed. If he remains in sinus rhythm in 6 months will refer him for ablation to reduce risk of recurrent atrial flutter/fibrillation. (3) Cardiomyopathy: Code(s): I42.9 - Cardiomyopathy, unspecified Plan: Cardiomyopathy process which appears to be tachycardia mediated. LV systolic function is normalized on recent echocardiogram and has so his heart failure syndrome. Continue rhythm control approach as above. Continue metoprolol for neurohormonal modulation. Avoidance of cardiotoxic agent was discussed. Also discussed about potentially pursuing sleep study but he declines it. Follow up in the clinic in 6 months time, sooner p.r.n.. Thank you for allowing me to partake in his care Orders: Orders Basic Metabolic Panel Today I42.9 - Cardiomyopathy, unspecified ECG 3 day holter monitor 6 Months I48.92 - Unspecified atrial flutter B Type Natriuretic Peptide Today I42.9 - Cardiomyopathy, unspecified Coding Level of Care Code Est Pt Level 4 (23622) Diagnoses Congestive heart failure I50.9 Atrial flutter I48.92 Cardiomyopathy I42.9 CPT Codes EKG - CPT: 42453-[id number], Complete ([id number])
== END 2023-12-13 15:25 | disposition home or self-care (01) ==
PROVIDERS: PCP Nurse Practitioner Family; Visit Provider Internal Medicine Cardiovascular Disease
DX: I50.9 Heart failure, unspecified (principal); I48.92 Unspecified atrial flutter; I42.9 Cardiomyopathy, unspecified
CPT/HCPCS: 93010; 99214

== ENCOUNTER 2024-05-20 11:39 | Emergency (ER) | payer OTHER, SELFPAY ==
--- NOTE | ~2024-05-20 | XR_ITS ---
EXAMINATION: XR CERVICAL SPINE CLINICAL INFORMATION: Pain. COMPARISON: None available. TECHNIQUE: AP, lateral, open-mouth, and swimmer's views of the cervical spine. FINDINGS: Normal vertebral body alignment. The cervical lordosis is maintained. No acute fracture or subluxation. No loss of vertebral body or intervertebral disc height. Prominent anterior endplate osteophytes at C3 through C7 with bridging at C5-C6. Pseudarthrosis at C4-C5. Normal atlantoaxial alignment. Unremarkable prevertebral soft tissues. XR/XR cervical spine 3V IMPRESSION: Prominent anterior endplate osteophytes at C3 through C7 with bridging at C5-C6. Pseudarthrosis at C4-C5.
--- NOTE | ~2024-05-20 | XR_ITS ---
EXAMINATION: XR SHOULDER, LEFT CLINICAL INFORMATION: Pain. COMPARISON: None available. TECHNIQUE: AP, Grashey, and scapular Y views of the left shoulder. FINDINGS: No acute fracture or dislocation. Moderate acromioclavicular joint space narrowing with marginal osteophytes. Mild glenohumeral joint space narrowing with small marginal osteophytes. Enthesopathic spurring at the greater tuberosity. No concerning lytic or blastic osseous lesion. XR/XR shoulder LT min 2V IMPRESSION: 1. Moderate acromioclavicular and mild glenohumeral osteoarthritis. 2. Degenerative spurring at the greater tuberosity.
[2024-05-20 12:01] VITALS: BP 161/87; PULSE 71; RESP 18; TEMP 36.8; O2SAT 95; BMI 38.0
--- NOTE | 2024-05-20 12:02 | ED.NECK ---
HPI - Neck Pain/Injury General Chief Complaint: General Medical Stated Complaint: pain in neck radiating up and down shoulder Time Seen by Provider: 05/20/24 16:01 Source: patient, RN notes reviewed and old records reviewed Mode of arrival: ambulatory Limitations: no limitations History of Present Illness ED Provider: Alycia DEE Narrative: 49-year-old male with past medical history significant for atrial flutter not actively anticoagulated, hypertension, psoriasis, sleep apnea presents for evaluation of left neck pain. Patient reports 2 days of left-sided neck pain that radiates into his shoulder. His pain has been worse with movement. He reports that today he had some numbness extending to the anterior neck He has had no weakness of the left upper extremity. 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 Further denies any balance issues, visual changes No other complaints or concerns at time At the time my evaluation he reports his pain has improved after resting Related Data Home Medications ?Medication ?Instructions ?Recorded ?Confirmed guselkumab 100 mg/mL subcutaneous 100 mg subcut 11/01/20 12/13/23 auto-injector (Tremfya) blood pressure test kit-large #1 ea 04/12/23 11/15/23 ketoconazole 2 % shampoo topical BID 04/12/23 12/13/23 Previous Rx's ?Medication ?Instructions ?Recorded rivaroxaban 20 mg tablet (Xarelto) 20 mg PO DAILY #30 tabs 10/31/23 furosemide 20 mg tablet 20 mg PO DAILY #30 tabs 11/08/23 amiodarone 200 mg tablet 200 mg PO DAILY #90 tabs 11/23/23 metoprolol succinate 100 mg 50 mg (1/2 x 100 mg) PO DAILY #30 03/07/24 tablet,extended release 24 hr tabs (Toprol XL) albuterol sulfate 90 mcg/actuation 1 inh inhalation QID PRN shortness 04/03/24 aerosol inhaler of breath or wheezing 30 days #8.5 grams dexamethasone 4 mg tablet 4 mg PO BID #6 tabs 05/20/24 Allergies Allergy/AdvReac Type Severity Reaction Status Date / Time aspirin Allergy Unknown nose bleeds Verified 05/20/24 12:03 Review of Systems Constitutional: Constitutional: Denies body ache(s), Denies chills, Denies fever(s) and Denies headache(s) Eyes: Eyes: Denies blurry vision ENT: Denies vertigo, Denies dizziness, Denies headache(s) and Reports neck pain Cardiovascular: Cardiovascular: Denies chest pain and Denies dyspnea Respiratory: Respiratory: Denies cough and Denies dyspnea Gastrointestinal: Gastrointestinal: Denies abdominal pain, Denies nausea and Denies vomiting Musculoskeletal: Musculoskeletal: Reports back pain, Reports arthralgias, Denies joint swelling, Denies limited range of motion and Reports neck pain Integumentary/Breasts: Skin/Breast: Denies rash Neurologic: Denies vertigo, Denies dizziness and Denies headache(s) [facility] Past Medical History Medical History Rheumatoid arthritis GERD (gastroesophageal reflux disease) Hypertension Obstructive sleep apnea syndrome, mild Palpitations Somnolence, daytime Surgical History Status post debridement H/O excision of dermoid cyst No pertinent past surgical history Family History Family History Father No problems noted. Mother No problems noted. Brother No problems noted. Son No problems noted. 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 Cognitive needs: No Hearing needs: No Vision needs: No Physical Exam Vital Signs: Vital Signs: Last Vital Signs Temp 98.3 F 05/20/24 16:22 Pulse 75 05/20/24 16:22 Resp 18 05/20/24 16:22 BP 158/80 H 05/20/24 16:22 Pulse Ox 98 05/20/24 16:22 O2 Del Method Room Air 05/20/24 16:22 BMI result Body Mass Index 38.0 Const: General: healthy appearing, comfortable, no acute distress, alert and awake Nutritional Appearance: well nourished Orientation/consciousness: patient oriented x3 HEENT: Head: Yes normocephalic and Yes atraumatic Eyes: Eyelids: Yes eyelids normal Conjunctivae: conjunctivae normal Sclerae: sclerae normal Corneas: corneas normal Pupils: Equal, round and reactive pupils present EOM: EOMs intact bilaterally Neck: Neck: Yes full ROM Resp: Effort & Inspection: normal respiratory effort, able to speak in complete sentences, no audible wheezes and not labored Auscultation: clear to auscultation bilaterally Cardio: Rate: regular rate Rhythm: regular rhythm GI: Inspection: No distended Palpation (GI): Soft to palpation, not firm, nontender, no guarding and not rigid Skin: General skin exam: elasticity normal Neuro: General: patient oriented x3 Cranial nerves: Yes CN's II-XII intact bilaterally, Yes Equal, round and reactive pupils present and Yes Bilaterally intact EOM present Cognition (Neuro): normal cognition Extrem: Other: Tenderness to the left cervical paraspinous region without step-offs or deformities, tenderness to the left trapezius muscle group. The patient does have full range of motion of the neck and left upper extremity. Course Course Course Narrative: This is a Rapid Medical Examination (RME) performed by Cristhian Gaytan PA-C in triage. Full HPI, ROS, assessment and treatment plan per primary provider in the Main ED. 49-year-old male with a history of AFib not on anticoagulation, HTN, BRANDON, who presents to the ER for evaluation of 2 days of worsening left shoulder pain, left upper back pain and neck pain. Patient denies any specific injury. Today pain got acutely worse and radiates to the front of the neck and is associated with some numbness to the anterior neck. No associated tingling, weakness of the upper extremities. Chest pain. Pain is worse with movement of the head and movement of left upper extremity. Plan: X-rays and lab work Medical Decision Making Medical Decision Making MDM Narrative: 49-year-old male presents for evaluation of left-sided neck and shoulder pain. His pain is improved with rest. He never had any chest pain. His pain is worse with movement, especially while driving a forklift that he operates. He has had no shortness of breath, palpitations or lightheadedness to suggest cardiac cause of his symptoms. His pain is reproducible on exam. His x-ray show signs of degenerative changes of the neck and left shoulder. Most likely diagnosis is musculoskeletal origin. Given the numbness to the left neck we will treat with dexamethasone for cervical radiculopathy. Patient's physical exam is reassuring, he has no neurologic deficits to suggest CVA Differential Diagnosis Differential Diagnoses: The differential diagnosis associated with the presentation includes Cervical radiculopathy Spasmodic torticollis Neck pain Arthritis CVA less likely ACS less likely Lab Data MDM Lab Attestation statement: I reviewed the patient's lab results. No leukocytosis. The patient has no significant anemia. His hematocrit is just below normal but with a normal hemoglobin. This is consistent with his baseline. Patient has no significant chemistry abnormalities. His glucose was elevated, however this was a random glucose after he had lunch 05/20/24 12:19 05/20/24 12:19 Labs: Lab Results 05/20/24 Range/Units 12:19 WBC 7.1 (4.8-10.8) X10*3/uL RBC 4.40 L (4.60-5.80) X10*6/uL Hgb 14.4 (14.0-18.0) g/dl Hct 40.9 L (42.0-52.0) % MCV 93.0 (80.0-98.0) fL MCH 32.7 (27.0-33.0) pg MCHC 35.2 (31.0-36.0) g/dl RDW 12.4 (11.0-16.0) % Plt Count 201 (160-400) X10*3/uL MPV 10.0 (9.4-12.4) fL Immature Gran % (Auto) 0.4 (0.0-0.4) % Neut % (Auto) 68.0 (45-73) % Lymph % (Auto) 22.7 (20-40) % [place] % (Auto) 5.9 (2-11) % Eos % (Auto) 2.7 (0-4) % Baso % (Auto) 0.3 (0-2) % Lymph # (Auto) 1.6 (1.2-4.9) X10*3/uL [place] # (Auto) 0.4 (0.1-1.2) X10*3/uL Eos # (Auto) 0.2 (0.0-0.4) X10*3/uL Baso # (Auto) 0.0 (0.0-0.2) X10*3/uL Abs Immat Gran (auto) 0.03 (0.00-0.03) X10*3/uL Absolute Neuts (auto) 4.8 (2.0-8.3) x10*3/uL Absolute Nucleated RBC 0.000 (0.0-0.012) X10*3/uL Nucleated RBC % (auto) 0.0 (0.0-0.2) /100WBC Sodium 142 (135-145) mmol/L Potassium 4.2 (3.3-5.1) mmol/L Chloride 107 (96-108) mmol/L Carbon Dioxide 24 (22-29) mmol/L Anion Gap 15 (12-20) BUN 16 (9-16) mg/dL Creatinine 1.32 (0.5-1.4) mg/dL Estim Creat Clear Calc 94.8 Estimated GFR 57 Random Glucose 149 H (60-115) mg/dL Calcium 9.5 (8.4-10.2) mg/dL Magnesium 2.0 (1.6-2.6) mg/dL Total Bilirubin 0.8 (0.0-1.0) mg/dL Direct Bilirubin 0.2 (0.0-0.5) mg/dL AST 21 (5-37) U/L ALT 34 (0-40) U/L Alkaline Phosphatase 103 (39-117) U/L Total Protein 7.9 (6.5-8.0) g/dL Albumin 4.6 (3.5-5.0) g/dL Independent Interpretation I performed an independent interpretation of an: Plain X-Ray Interpretation: Agree with Radiology interpretation Radiology Impression Discussion of test interpretation with radiology: I have reviewed the radiologist's reading. Radiologist Impression: XR/XR shoulder LT min 2V IMPRESSION: 1. Moderate acromioclavicular and mild glenohumeral osteoarthritis. 2. Degenerative spurring at the greater tuberosity. XR/XR cervical spine 3V IMPRESSION: Prominent anterior endplate osteophytes at C3 through C7 with bridging at C5-C6. Pseudarthrosis at C4-C5. Discharge Plan Discharge Clinical Impression: Cervical radiculopathy Patient Disposition: Home, Self-Care Instructions: Cervical Radiculopathy (ED) Additional Instructions: Your workup in the ER today was reassuring. Your x-rays did show evidence of arthritis in your neck and shoulder Take dexamethasone twice daily for the next 3 days Use Tylenol as needed for pain You may use warm compresses as well to help with your symptoms Follow-up with your primary doctor, you may benefit from an outpatient MRI in the near future Return for new or worsening symptoms Prescriptions: New dexamethasone 4 mg tablet 4 mg PO BID Qty: 6 0RF No Action amiodarone 200 mg tablet 200 mg PO DAILY Qty: 90 3RF metoprolol succinate [Toprol XL] 100 mg tablet extended release 24 hr 50 mg PO DAILY Qty: 30 4RF albuterol sulfate 90 mcg/actuation HFA aerosol inhaler 1 inh inhalation QID PRN (Reason: shortness of breath or wheezing) 30 Days Qty: 8.5 0RF furosemide 20 mg tablet 20 mg PO DAILY Qty: 30 0RF Tremfya 100 mg/mL auto-injector 100 mg subcut (DME) blood pressure test kit-large Kit See Rx Instructions .ROUTE DIRECTED Qty: 1 Rx Instructions: As directed ketoconazole 2 % shampoo topical BID Xarelto 20 mg tablet 20 mg PO DAILY Qty: 30 5RF Rx Instructions: must administer with evening meal Stand Alone Forms: Work/School Release Interventions: ED Discharge Assessment Last Done: 05/20/24 16:22 Discharge Date/Time: 05/20/24 16:24 Print Language: Tamazight
[2024-05-20 12:28] LABS: MANUAL DIFF FLAG NO
[2024-05-20 12:30] LABS: Basophils Percent Auto 0.3 % (0-2); Eosinophils Absolute Auto 0.2 X10*3/uL (0.0-0.4); Eosinophils Percent Auto 2.7 % (0-4); Hematocrit 40.9 % (42.0-52.0); Hemoglobin 14.4 g/dl (14.0-18.0); Imm Gran Abs Auto 0.03 X10*3/uL (0.00-0.03); Imm Gran Pct Auto 0.4 % (0.0-0.4); Lymphocytes Absolute Auto 1.6 X10*3/uL (1.2-4.9); Lymphocytes Percent Auto 22.7 % (20-40); Mean Corpuscular HGB Conc 35.2 g/dl (31.0-36.0); Mean Corpuscular Hemoglobin 32.7 pg (27.0-33.0); Monocytes Absolute Auto 0.4 X10*3/uL (0.1-1.2); Monocytes Percent Auto 5.9 % (2-11); Neutrophils Absolute Auto 4.8 x10*3/uL (2.0-8.3); Platelet Count 201 X10*3/uL (160-400); Red Cell Distribution Width 12.4 % (11.0-16.0); White Blood Count 7.1 X10*3/uL (4.8-10.8)
[2024-05-20 12:48] LABS: Alanine Aminotransferase 34 U/L (0-40); Albumin Level 4.6 g/dL (3.5-5.0); Alkaline Phosphatase 103 U/L (39-117); Anion Gap 15 (12-20); Aspartate Amino Transferase 21 U/L (5-37); Bilirubin Direct 0.2 mg/dL (0.0-0.5); Bilirubin Total 0.8 mg/dL (0.0-1.0); Blood Urea Nitrogen 16 mg/dL (9-16); Calcium 9.5 mg/dL (8.4-10.2); Carbon Dioxide 24 mmol/L (22-29); Chloride 107 mmol/L (96-108); Creatinine Clr Calc Pharmacy 94.8; Estimated Glomerular Filt Rate 57; Glucose Random 149 mg/dL (60-115); Potassium 4.2 mmol/L (3.3-5.1); Sodium 142 mmol/L (135-145); Total Protein 7.9 g/dL (6.5-8.0)
[2024-05-20 16:22] VITALS: BP 158/80; PULSE 75; RESP 18; TEMP 36.8; O2SAT 98
== END 2024-05-20 16:24 | disposition home or self-care (01) ==
PROVIDERS: Physician Assistant; Emergency Provider Emergency Medicine; PCP Physician Assistant
DX: M54.12 Radiculopathy, cervical region (principal); M54.2 Cervicalgia; I10 Essential (primary) hypertension; I48.91 Unspecified atrial fibrillation; Z79.899 Other long term (current) drug therapy; Z79.01 Long term (current) use of anticoagulants
CPT/HCPCS: 36415; 72040; 73030; 80048; 80076; 83735; 85025; 99283

== ENCOUNTER → 2024-06-16 14:56 | Outpatient (REF) | payer OTHER, SELFPAY ==
--- NOTE | 2024-06-16 15:03 | HM_ITS ---
Conclusion: 1. Patient was monitored for total period of 2 days and 23 hours 2. Baseline was normal sinus rhythm with average heart of 81 beats per minute 3. No significant pauses noted 4. Occasional PACs noted without any episodes of atrial fibrillation 5. No patient reported events MTDD
== END ==
LOC: HO.CARD 14:56
PROVIDERS: PCP Physician Assistant; Visit Provider Internal Medicine Cardiovascular Disease
DX: I48.92 Unspecified atrial flutter (principal)
CPT/HCPCS: 93242

== ENCOUNTER → 2024-06-16 15:03 | Outpatient (BNV) | payer OTHER, SELFPAY | PROVIDERS: PCP Physician Assistant; Visit Provider Internal Medicine Cardiovascular Disease | DX: I49.1 Atrial premature depolarization (principal) | CPT/HCPCS: 93244 ==

== ENCOUNTER 2024-06-24 15:05 | Outpatient (AMB) | payer OTHER, SELFPAY ==
[2024-06-24 15:09] VITALS: BP 130/82; PULSE 72; BMI 37.8
--- NOTE | 2024-06-24 15:09 | A.OFFVIS_ITS ---
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 He has been feeling well. No recurrent symptoms suggestive of heart failure. No recurrent symptoms suggestive of prolonged palpitation irregular heartbeat. He however says when he sleeps on the left side he does feel some fluttering in his chest. No prolonged irregular heartbeat. Echocardiogram shows normalized LV ejection fraction in November. He has stopped taking his blood thinner medications because he was afraid of bleeding with work. He is taking amiodarone but not always faithfully and regularly on a daily basis. [facility] Medical History (Updated 06/24/24 @ 15:39 by Hebert Fuentes MD) Paroxysmal atrial fibrillation Afib Atrial flutter Rheumatoid arthritis GERD (gastroesophageal reflux disease) Hypertension Obstructive sleep apnea syndrome, mild Palpitations Somnolence, daytime Surgical History Status post debridement H/O excision of dermoid cyst No pertinent past surgical history Family History Father No problems noted. Mother No problems noted. Brother No problems noted. Son No problems noted. 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 Cognitive needs: No Hearing needs: No Vision needs: No Review of Systems Const Denies chills, Denies fatigue, Denies fever(s), Denies frequent falls, Denies weakness, Denies weight gain and Denies weight loss ENT Denies dizziness Card Denies chest pain, Denies leg edema, Denies lightheadedness, Denies palpitations, Denies dyspnea, Denies dyspnea on exertion, Denies orthopnea and Denies other (loss of consciousness) Resp Denies cough, Denies dyspnea and Denies dyspnea on exertion GI Denies hematochezia and Denies change in stool character Musc Denies abnormal gait, Denies muscle weakness, Denies numbness, Denies radiating pain into limb and Denies tingling Neuro Denies abnormal gait, Denies dizziness, Denies frequent falls, Denies numbness, Denies tingling and Denies weakness Endo Denies fatigue and Denies palpitations Physical Exam Vital Signs: Last Vital Signs Pulse 72 06/24/24 15:09 BP 130/82 06/24/24 15:09 BMI result Body Mass Index 37.8 Const General: cooperative, healthy appearing, comfortable and no acute distress Orientation/consciousness: patient oriented x3 Neck Neck: Yes normal visual inspection and Yes no JVD Resp Effort & Inspection: normal respiratory effort Auscultation: clear to auscultation bilaterally, no rales, no rhonchi and no wheezes Cardio Jugular venous distension: no JVD Rate: regular rate Rhythm: regular rhythm Heart sounds: S1 normal heart sound present, S2 normal heart sound present, no murmurs and no rubs Neuro General: patient oriented x3 Extrem General: Yes normal to inspection and No no pedal edema Psych Appearance: grossly normal Mental Status: mental status grossly normal Speech and movement: Normal speech and movement present Office Procedures EKG Details: EKG shows normal sinus rhythm with normal EKG at 72 beats per minute [id number], Complete Assessment & Plan Assessment & Plan (1) Cardiomyopathy: Code(s): I42.9 - Cardiomyopathy, unspecified Category: Medical Plan: Cardiomyopathy process related to atrial fibrillation with rapid ventricular response and persistent atrial fibrillation. Normalized after maintaining rhythm. Doing very well from that perspective. Continue metoprolol therapy for neurohormonal modulation. Continue rhythm control approach. Importance of regular medical therapy was discussed. Importance of rhythm control was discussed. Advised to call me with any new symptoms. Continue participate in physical activity and weight loss program. (2) Paroxysmal atrial fibrillation: Comment: Status post cardioversion requiring amiodarone therapy for maintenance Code(s): I48.0 - Paroxysmal atrial fibrillation Category: Medical Plan: Paroxysmal atrial fibrillation, currently on amiodarone therapy. Doing extremely well with rhythm control approach. Will continue pursue rhythm control approach. Importance of taking medications were discussed. Given his age we discussed about pursuing an alternative approach for rhythm management including with the ablation. He is not very enthusiastic about it. He will talk to his and get back to me. Importance of oral anticoagulation was discussed given left atrial enlargement as well as history of hypertension. He is willing to retrial. Have sent a prescription for Xarelto. Semi annual renal function test should be pursued. Will reduce amiodarone 200 mg daily to reduce long-term toxicity. Will follow up in the clinic in 6 months time, sooner p.r.n.. Thank you for allowing me to partake in his care Orders: Orders CA echo transthoracic complete 6 Months I42.9 - Cardiomyopathy, unspecified Medications: New rivaroxaban (Xarelto) must administer with evening meal 20 mg PO DAILY 90 tabs 3RF Changed From amiodarone 200 mg PO DAILY 90 tabs 3RF To amiodarone 100 mg (1/2 x 200 mg) PO DAILY 90 tabs 3RF Coding Level of Care Code Est Pt Level 4 (32778) Diagnoses Cardiomyopathy I42.9 Paroxysmal atrial fibrillation I48.0 CPT Codes EKG - CPT: 04358-[id number], Complete ([id number])
== END 2024-06-24 15:44 | disposition home or self-care (01) ==
PROVIDERS: PCP Nurse Practitioner Family; Visit Provider Internal Medicine Cardiovascular Disease
DX: I42.9 Cardiomyopathy, unspecified (principal); I48.0 Paroxysmal atrial fibrillation
CPT/HCPCS: 93010; 99214

== ENCOUNTER → 2024-06-24 15:05 | Outpatient (BNVA) | payer OTHER, SELFPAY | PROVIDERS: PCP Nurse Practitioner Family; Visit Provider Internal Medicine Cardiovascular Disease | DX: I42.9 Cardiomyopathy, unspecified (principal); I48.0 Paroxysmal atrial fibrillation | CPT/HCPCS: 93005; 99212 ==

== ENCOUNTER 2024-07-03 08:21 | Outpatient (REF) | payer OTHER, SELFPAY ==
--- NOTE | ~2024-07-03 | XR_ITS ---
EXAMINATION: XR KNEE, RIGHT CLINICAL INFORMATION: M25.561 - Pain in right knee COMPARISON: AP standing view right knee 11/03/2022. TECHNIQUE: Four views of the right knee. FINDINGS: Normal bone mineralization. No fracture, dislocation, or focal bony abnormality. Very mild changes of osteoarthritis noted in the medial and patellofemoral compartments. Lateral compartment is preserved. Minimal spurring of the tibial spines. There is a prominent suprapatellar joint effusion on the lateral projection. There is no soft tissue abnormality otherwise. XR/XR knee RT 4V IMPRESSION: 1. No acute bony abnormalities. Very mild degenerative arthritis in the medial patellofemoral compartments. 2. Prominent suprapatellar joint effusion present. 3. Consider MRI if felt appropriate. Electronically signed by: Lico Forde MD 09/09/2024 11:41 AM JULIET
--- NOTE | ~2024-07-03 | XR_ITS ---
EXAMINATION: XR LUMBOSACRAL SPINE CLINICAL INFORMATION: M54.16 - Radiculopathy, lumbar region COMPARISON: None available. TECHNIQUE: Three views of the lumbosacral spine. FINDINGS: Normal bone mineralization. No fracture, compression deformity, traumatic subluxation or acute bony abnormality. Normal lordosis. No significant scoliosis. No subluxations. Advanced degenerative disc changes seen focally at T12-L1. Mild to moderate degenerative disc changes noted at L5-S1. Otherwise, only minimal disc degeneration noted with preservation of disc spaces at the other levels. Facets are normally aligned. There is mild hypertrophic facet degeneration at L4-5 and L5-S1. There are mild degenerative changes in both SI joints. Soft tissue demonstrates very early vascular calcification. XR/XR lumbar spine 2-3V IMPRESSION: 1. No acute findings lumbar spine. 2. Moderate to advanced degenerative disc changes focally T12-L1. Mild to moderate degenerative changes L5-S1. Otherwise only mild disc degeneration. 3. Mild degenerative facet changes L4-S1. Electronically signed by: Lico Forde MD 09/09/2024 11:45 AM EST
== END 2024-07-03 08:22 | disposition home or self-care (01) ==
LOC: HO.XRAY 08:21
PROVIDERS: Absent Provider Physician Assistant; PCP Physician Assistant
DX: M54.16 Radiculopathy, lumbar region (principal); M25.561 Pain in right knee; M17.12 Unilateral primary osteoarthritis, left knee
CPT/HCPCS: 72100; 73564; 96127; 99212

== ENCOUNTER 2024-07-03 08:21 | Outpatient (AMB) | payer OTHER, SELFPAY ==
[2024-07-03 08:23] VITALS: BP 156/82; PULSE 80; O2SAT 95; BMI 38.1
--- NOTE | 2024-07-03 08:23 | A.OFFPC_ITS ---
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 Required: No Allergies aspirin Allergy (Unknown, Verified 07/03/24 08:26) nose bleeds Medication List - Last Reconciled 07/03/24 by Lisa Robertson PA-C albuterol sulfate 90 mcg/actuation 1 inh inhalation QID PRN 30 days amiodarone 100 mg (1/2 x 200 mg) PO DAILY blood pressure test kit-large As directed gabapentin 300 mg PO DAILY 30 days guselkumab (Tremfya) 100 mg subcut ketoconazole 2% topical BID metoprolol succinate ER (Toprol XL) 50 mg (1/2 x 100 mg) PO DAILY rivaroxaban (Xarelto) 20 mg PO DAILY Tobacco use date assessed: 07/03/24 Dental Screening Dental Screen Date: 07/03/24 Did you have a dental visit in the last 12 months?: No Did you have a dental problem in the last 6 months where you did not have access to dental care?: No HPI MARIA GUADALUPE from [facility]/ sciatica pain HPI Details 49-year-old male with past medical histo ry of hypertension, obstructive sleep apnea, plaque psoriasis, cardiomyopathy, and AFib last seen by PA coming in for acute problem. In review of the notes, patient follows with [facility] Cardiology last seen 06/24/2024 doing well on current med regimen can consider ablation in the future and continue on anticoagulation. Patient was also seen in [facility] ED 05/22/2024 for left-sided neck pain given short course of steroids and discharged home. Today he tells us he has been having bilateral knee pain as well as radicular pain from the back down the right leg. He has a history of left knee scope for torn meniscus and has been having chronic pain since the procedure. The right knee just recently started bothering him. 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 He was recently given gabapentin and referred to pain management by our office and has an appointment with pain management next week. [facility] Medical History (Updated 07/03/24 @ 08:47 by Lisa Robertson PA-C) Paroxysmal atrial fibrillation Afib Atrial flutter Rheumatoid arthritis GERD (gastroesophageal reflux disease) Hypertension Obstructive sleep apnea syndrome, mild Palpitations Somnolence, daytime Surgical History Status post debridement H/O excision of dermoid cyst No pertinent past surgical history Family History Father No problems noted. Mother No problems noted. Brother No problems noted. Son No problems noted. 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 1. Little interest or pleasure in doing things: not at all 2. Feeling down, depressed, or hopeless: not at all 3. Trouble falling or staying asleep, or sleeping too much: not at all 4. Feeling tired or having little energy: not at all 5. Poor appetite or overeating: not at all 6. Feeling bad about yourself - or that you are a failure or have let yourself or your family down: not at all 7. Trouble concentrating on things, such as reading the newspaper or watching television: not at all 8. Moving or speaking so slowly that other people could have noticed. Or the opposite - being so fidgety or restless that you have been moving around a lot more than usual: not at all 9. Thoughts that you would be better off or of hurting yourself in some way: not at all Total score: 0 Depression Screening Interpretation: Negative Depression Screening Done: Yes 67803 - PHQ-9 Billing: Yes Source: Developed by Drs. Norberto Beverly, Donna Timmons, Mumtaz Mccauley and colleagues, with an educational klaudia from [employer]. Thrive Questionnaire Date Thrive assessed: 07/03/24 I am a: Patient What is your living situation today?: I have a steady place to live Within the past 12 months, did the food you bought not last and you didn't have the money to get more?: Never true Within the past 12 months, did you worry whether your food would run out before you got money to buy more?: Never true Do you have trouble paying for medicines?: No Do you have trouble getting transportation to medical appointments?: No Do you have trouble paying your heating and electricity bill?: No Do you have trouble taking care of your child, family member or friend?: No Do you have trouble with day-to-day activities such as bathing, preparing meals, shopping, managing finances, etc.?: No Are you currently unemployed and looking for a job?: No Are you interested in more education?: No Please select the resources that you would like help with: None Currently or been in a relationship where the following occur: No concerns reported THRIVE Score: 0 AUDIT C Alcohol Use Questionnaire (AUDIT-C) 1. How often do you have a drink containing alcohol?: Never 3. How often do you have six or more drinks on one occasion?: Never Total Score: 0 ARIANNA-7 AMB Questionnaire ARIANNA-7 Date ARIANNA - 7 assessed: 07/03/24 Feeling nervous, anxious, or on edge: 0 = Not at all Not being able to stop or control worryin = Not at all Worrying too much about different things: 0 = Not at all Trouble relaxin = Not at all Being so restless that it is hard to sit still: 0 = Not at all Becoming easily annoyed or irritable: 0 = Not at all Feeling afraid as if something awful might happen: 0 = Not at all Total ARIANNA-7 score (0-4 normal; 5-9 mild; 10-14 moderate; 15-21 severe): 0 Source: Developed by Drs. Norberto Beverly, Donna Timmons, Mumtaz Mccauley and colleagues, with an educational klaudia from [employer]. ARIANNA-7 Assessment Billing ARIANNA-7 Assessment Tool: ARIANNA-7 Assessment 83846 Review of Systems Const Denies body aches, Denies chills and Denies fever(s) Card Reports no additional complaints Resp Reports no additional complaints Musc Details: Low back pain and sharp shooting pain that radiates over the right buttocks and down the right leg. Bilateral knee pain Skin/Breast Reports system reviewed and no additional complaints, except as documented Physical exam (Primary Care) Vital Signs: Last Vital Signs Pulse 80 07/03/24 08:23 BP 156/82 H 07/03/24 08:23 Pulse Ox 95 07/03/24 08:23 Oxygen Delivery Method Room Air 07/03/24 08:23 BMI result Body Mass Index 38.1 Tobacco/Smoking Status: Tobacco use Status Tobacco use date assessed 07/03/24 07/03/24 08:30 Patient Tobacco Use Status Former Tobacco user 07/03/24 08:30 Tobacco use type Cigarette 07/03/24 08:30 e-Cigarette/Vaping Use Never Used 07/03/24 08:30 PHQ-9: PHQ-9 Score PHQ-9: Total score 0 07/03/24 08:36 Depression Screening Interpretation: Negative Thrive Assessment: Date of Thrive Assessment Date Thrive assessed 07/03/24 07/03/24 08:30 Currently or been in a relationship where the following occur: No concerns reported Const General: cooperative, healthy appearing, comfortable and no acute distress Orientation/consciousness: patient oriented x3 HENMT Head: Yes normocephalic Ears: hearing grossly normal bilaterally General nose exam: Normal external nose present Eyes General: appearance normal, both eyes and all related structures Conjunctivae: conjunctivae normal Neck Neck: Yes full ROM and Yes no lymphadenopathy Resp Effort & Inspection: normal respiratory effort Cardio Rate: regular rate Back/Spine/Pelvis Other: No pain to palpation over lumbar spine or bilateral hips. Negative straight leg raise bilaterally Skin General skin exam: no rashes or lesions noted Neuro General: patient oriented x3 Gait exam (Neuro): Normal gait present Extrem Other: No pain to palpation of bilateral knees. Pain on extension and flexion of right knee General: Yes normal to inspection, Yes full ROM and No edema Psych Affect: normal affect Attitude: cooperative Insight: Good insight present (Psych) Judgement: Good judgement present (Psych) Assessment and Plan Assessment & Plan (1) Lumbar radiculitis: Code(s): M54.16 - Radiculopathy, lumbar region Plan: Patient complains sharp shooting pain over the right buttocks down the right leg which began shortly after beginning work again. He does mentioned he sits on his while it while in the car and advised patient to empty his pockets before sitting. Ordered for lumbar spine x-ray and patient is scheduled to follow up with pain management next week. He was also given gabapentin by our office for pain which can be used as needed. (2) Right knee pain: Code(s): M25.561 - Pain in right knee Plan: Patient has new onset right knee pain which began shortly after starting back at work. 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 Ordered for x-ray of right knee for further evaluation and can use Tylenol and ibuprofen as needed for pain. (3) Osteoarthritis of left knee: Code(s): M17.12 - Unilateral primary osteoarthritis, left knee Plan: Left knee pain is stable and has not changed. Advised pain management with Tylenol and ibuprofen as needed. Plan This note was constructed using voice recognition software. While every effort has been made to ensure accuracy and dance coach, still areas may have been included sometimes these areas may affect the content or meeting of the given symptoms. Total time spent caring for the patient today was 30 minutes. This includes time spent before the visit reviewing the chart, time spent during the visit, and time spent after the visit and documentation. Coding Level of Care Code Est Pt Level 4 (57251) Diagnoses Lumbar radiculitis M54.16 Right knee pain M25.561 Osteoarthritis of left knee M17.12 Additional Codes ARIANNA-7 Assessment Billing - ARIANNA-7 Assessment Tool: ARIANNA-7 Assessment 08452 ([id number])
== END 2024-07-03 08:50 | disposition home or self-care (01) ==
PROVIDERS: PCP Nurse Practitioner Family
DX: M54.16 Radiculopathy, lumbar region (principal); M25.561 Pain in right knee; M17.12 Unilateral primary osteoarthritis, left knee

== ENCOUNTER → 2024-07-03 09:09 | Outpatient (BNV) | payer OTHER, SELFPAY | PROVIDERS: Absent Provider Physician Assistant; PCP Physician Assistant; Visit Provider Radiology Diagnostic Radiology | DX: M25.561 Pain in right knee (principal); M54.16 Radiculopathy, lumbar region | CPT/HCPCS: 72100; 73564 ==

== ENCOUNTER 2024-07-10 08:39 | Outpatient (AMB) | payer OTHER, SELFPAY ==
--- NOTE | 2024-07-10 08:41 | MHC.OFFVIS ---
Vital Signs 07/10/24 08:48 Height 6 ft 1 in Weight 291 lb 2 oz BMI 38.4 BP 187/98 H Blood Pressure Location Rt brachial Position Sitting Pulse 72 Pulse Source Pulse Oximeter Pulse Oximetry (%) 98 Oxygen Delivery Method Room Air Intake Visit Reasons: Radiculopathy, lumbar region Intake Note: Pain today 8/10 Molder Required: No Accompanied by: Self / Same As Patient Allergies aspirin Allergy (Unknown, Verified 07/10/24 08:49) nose bleeds HPI Comments Details: Bran is a very pleasant 49-year-old male who presents the office today for evaluation management of his right lower back pain Patient has been suffering with this pain for 8 weeks, denies inciting injury, trauma, fall. 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 Pain started after he had been work. Pain today is rated as an 8/10, right buttocks with radiation down posterior thigh to the knee. Denies radiation of the pain past the level of the knee. Denies weakness, numbness, tingling, burning of either lower extremity Pain is exacerbated by sitting, standing and lying on his right side He has not attempted PT, chiropractor, acupuncture, massage or injections Had an x-ray performed recently, results are not available for review He has been taking Tylenol Motrin without improvement of his symptoms Prescribed gabapentin by his primary care doctor which he has been taking with out improvement Denies red flag symptoms including loss of bowel, bladder or saddle anesthesia. In terms of muscle damage condition is described as pinching, cramping, dull, sore, aching, jumping, shooting Pain is negatively impacting patient's enjoyment of life, general activity, normal sleep, ability to perform activities of daily living, ability to function normally and normal work Denies implantable devices, pacemaker defibrillator Denies current use of nicotine, tobacco Endorses social alcohol use. Endorses current use of marijuana [facility] Medical History (Updated 07/10/24 @ 09:59 by Danica Tyler APRN, ASSISTANT PROFESSOR OF RELIGION) Paroxysmal atrial fibrillation Afib Atrial flutter Rheumatoid arthritis GERD (gastroesophageal reflux disease) Hypertension Obstructive sleep apnea syndrome, mild Palpitations Somnolence, daytime Surgical History Status post debridement H/O excision of dermoid cyst No pertinent past surgical history Family History Father No problems noted. Mother No problems noted. Brother No problems noted. Son No problems noted. 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 Answers questions appropriately. Fully engaged in examination. Skin: warm, dry, intact HEENT: Normocephalic. Hearing intact. Cardiac: External chest normal in appearance. Respiratory: No cough, audible wheezing or stridor. Abdomen: without gross distension. MS: No obvious swelling or deformities. Able to stand on bilateral tiptoes and bilateral heels.? Able to transition from sit to stand unassisted. Ambulates with bilaterally normal heel strike and toe off Tenderness over right PSIS [place] positive on the right Thigh thrust positive on the right SI compression positive on the right Bilateral lower extremity strength 5/5 SLR negative bilaterally Nontender over midline lumbar vertebrae and lumbar paraspinal muscles Neurological: Oriented to person, place, time and situation. Thought process intact. No gait abnormalities appreciated. Psychiatric: Appropriate mood and affect. Good judgment and insight. Assessment & Plan Assessment & Plan (1) Sacroiliac joint dysfunction of right side: Code(s): M53.3 - Sacrococcygeal disorders, not elsewhere classified Category: Medical Plan Bran is a very pleasant 49-year-old male who presented to the office today for evaluation management of his right lower back pain History, physical exam and provocative testing consistent with right sacroiliac joint dysfunction Order placed for PT eval and treat Methocarbamol 500 mg p.o. t.i.d. as needed. Patient advised on cautions for use. Amitriptyline 10 mg daily at bedtime, one-week may increase to 20 mg daily at the time. Discussed options for treatment including diagnostic testing, steroid injections and peripheral nerve stimulation. We will further discuss All questions and concerns were answered, patient agrees with plan Orders: Orders PT Evaluation and Treatment Today M53.3 - Sacrococcygeal disorders, not elsewhere classified Medications: New methocarbamol No driving while taking this medication. Do no take with alcohol or other BUSPERSON Depressants 500 mg PO TID PRN 90 tabs 1RF muscle spasm amitriptyline 10 mg daily at bedtime for 1 week, then may increase to 20 mg daily at bedtime 20 mg (2 x 10 mg) PO BEDTIME 30 days 60 tabs 0RF Coding Level of Care Code New Pt Level 4 (96927) Complex EM visit Add On G2211 Diagnoses Sacroiliac joint dysfunction of right side M53.3
[2024-07-10 08:48] VITALS: BP 187/98; PULSE 72; O2SAT 98; BMI 38.4
== END 2024-07-10 09:12 | disposition home or self-care (01) ==
PROVIDERS: PCP Physician Assistant; Visit Provider Registered Nurse Emergency
DX: M53.3 Sacrococcygeal disorders, not elsewhere classified (principal)
CPT/HCPCS: 99204; G2211

== ENCOUNTER → 2024-07-10 08:39 | Outpatient (BNVA) | payer OTHER, SELFPAY | PROVIDERS: PCP Physician Assistant; Visit Provider Registered Nurse Emergency | DX: M53.3 Sacrococcygeal disorders, not elsewhere classified (principal); M54.16 Radiculopathy, lumbar region | CPT/HCPCS: 99202 ==

== ENCOUNTER 2024-07-29 15:51 | Outpatient (AMB) | payer OTHER, SELFPAY ==
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
[2024-07-29 16:00] VITALS: BP 162/78; PULSE 85; O2SAT 97; BMI 38.1
== END 2024-07-29 16:33 | disposition home or self-care (01) ==
PROVIDERS: PCP Physician Assistant; Visit Provider Physician Assistant
DX: Z00.00 Encounter for general adult medical examination without abnormal findings (principal); I48.0 Paroxysmal atrial fibrillation; E66.812 Obesity, class 2; Z68.38 Body mass index [BMI] 38.0-38.9, adult; M53.3 Sacrococcygeal disorders, not elsewhere classified; L40.0 Psoriasis vulgaris

== ENCOUNTER → 2024-07-29 15:51 | Outpatient (BNVA) | payer OTHER, SELFPAY | PROVIDERS: PCP Physician Assistant; Visit Provider Physician Assistant | DX: Z00.00 Encounter for general adult medical examination without abnormal findings (principal); I48.0 Paroxysmal atrial fibrillation; M53.3 Sacrococcygeal disorders, not elsewhere classified; L40.0 Psoriasis vulgaris; E66.812 Obesity, class 2; Z68.38 Body mass index [BMI] 38.0-38.9, adult; Z79.01 Long term (current) use of anticoagulants; Z79.899 Other long term (current) drug therapy; Z28.21 Immunization not carried out because of patient refusal | CPT/HCPCS: 90471; 96127; 99396 ==

== ENCOUNTER → 2024-12-15 08:46 | Outpatient (REF) | payer OTHER, SELFPAY ==
--- NOTE | 2024-12-15 08:49 | CA_ITS ---
Transthoracic Echocardiogram Patient (Last, First, Middle): Bran Miles, Gender: Male Date of : 1975 Age: 49 Procedure Date: 12/15/2024 Procedure Type: Transthoracic Echocardiogram Location: OP Height: 185. cm Weight: 133.81 kg BSA: 2.53 m2 Heart Rate: 81 bpm BP: 165 / 80 mmHg Principal Architect: GIDEON Referring MD: Hebert Funetes MD Symptoms: I42.9 - Cardiomyopathy, unspecified Study Quality: Fair ECG Rhythm: Sinus Conclusions: - The left ventricular systolic function is normal. The calculated ejection fraction is 58% by biplane method. - No obvious valvular pathology seen on this study. Findings Left Ventricle Normal left ventricular cavity size. There is mildly increased left ventricular wall thickness. The left ventricular systolic function is normal. The calculated ejection fraction is 58% by biplane method. There is no evidence of regional wall motion abnormalities. Diastolic function is normal for age. Right Ventricle Normal right ventricular cavity size and systolic function. Atria The left atrium is mildly dilated. The right atrium is normal in size. Aortic Valve There is a normal trileaflet aortic valve. There is no aortic valve stenosis. There is no aortic valve regurgitation. Mitral Valve The mitral valve appears normal. There is no mitral valve regurgitation. There is no mitral valve stenosis. Pulmonic Valve The pulmonic valve was not well visualized. Tricuspid Valve Normal tricuspid valve structure. There is no tricuspid valve regurgitation. Tricuspid regurgitation envelope is inadequate for calculation of right ventricular systolic pressure. Great Vessels The asc aorta is normal in size. Venous The inferior vena cava is dilated and collapses greater than 50% with inspiration. Pericardium/Pleural There is no evidence of pericardial effusion. Prior Study Comparison No significant change compared to prior study dated: 12/06/2023. Recommendations, Care & Conclusions No obvious valvular pathology seen on this study. Measurements 2D Linear Measurements IVSd: 1.07 0.6-0.9/0.6-1.0 cm LVIDd: 5.10 3.9-5.3/4.2-5.9 cm LVIDd Index: 2.02 2.4-3.2/2.2-3.1 cm/m2 LVIDs: 3.19 2.0-3.6 cm LVPWd: 1.18 0.7-1.1 cm LA Diam: 3.50 2.7-3.8/3.0-4.0 cm LAIDs Index: 1.38 1.5-2.3 cm/m2 LV Mass: 274.99 67-162/88-224 g LV Mass Index: 108.69 43-95/49-115 g/m2 LVOT Diam: 2.20 3.0+(-)1.3 cm 2D Systolic Function EF 4C: 58.00 >55% EF 2C: 56.70 >55% EF BiP: 57.50 >55% Mitral Valve MV Pk E: 0.99 MV PK A: 0.89 MV Decel Time: 255.00 E/A: 1.10 E'Lateral: 8.59 E'Medial: 7.72 E/E' Med: 12.80 E/E' Lat: 11.50 PHT: 75.00 MVA PHT: 2.93 Decel [place]: 3.86 Aortic Valve AoV Pk Zen: 1.80 AoV Mn Zen: 1.37 AoV VTI: 0.39 AoV Pk Grad: 13.00 Aov Mn Grad: 8.00 KIM Cont.VTI: 2.40 LVOT LVOT Pk Zen: 1.21 LVOT Mn Zen: 0.90 LVOT VTI: 0.25 LVOT Pk Grad: 6.00 LVOT Mn Grad: 4.00 LVOT Diam: 2.20 LVOT Area: 3.80 Diastolic Function MV Pk E: 0.99 MV Pk A: 0.89 E/A: 1.10 E'Medial: 7.72 E/E' Med: 12.80 E' Laterial: 8.59 E/E' Lat: 11.50 Right Ventricle TAPSE (mm): 28.60 TVS' Zen: 15.80 Tricuspid Valve RA Press: 8.00 Great Vessels Aorta Sinus of Valsalva: 3.40 2.0-3.5 cm Ao Asc: 3.30 2.1-3.4 cm Pulmonary Valve PV Pk Zen: 1.19 Peak PV Grad: 6.00 Updated in Other Vendor System with Status of Final Ephraim Collins MD electronically signed on 12/15/2024 9:45:02 AM with status of Final
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
== END ==
LOC: HO.CARD 08:46
PROVIDERS: PCP Physician Assistant; Visit Provider Internal Medicine Cardiovascular Disease
DX: I42.9 Cardiomyopathy, unspecified (principal)
CPT/HCPCS: 93306

== ENCOUNTER → 2024-12-15 08:49 | Outpatient (BNV) | payer OTHER, SELFPAY | PROVIDERS: PCP Physician Assistant; Visit Provider Internal Medicine | DX: I42.8 Other cardiomyopathies (principal) | CPT/HCPCS: 93306 ==

== ENCOUNTER 2024-12-23 14:38 | Outpatient (AMB) | payer OTHER, SELFPAY ==
[2024-12-23 14:40] VITALS: BP 140/78; PULSE 85; BMI 39.0
--- NOTE | 2024-12-23 14:40 | A.OFFVIS_ITS ---
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 Overall he is doing well. He had occasional episodes of palpitation but no prolonged atrial fibrillation. Has a significant improvement in his shortness of breath and functionality. Currently not working. Still taking oral anticoagulation therapy with Xarelto and also taking low-dose amiodarone. He is currently not on any blood pressure control. Blood pressure is slightly elevated but he is slightly upset cause of his personal situation and change expected in his insurance coverage. [facility] Medical History Paroxysmal atrial fibrillation Afib Atrial flutter Rheumatoid arthritis GERD (gastroesophageal reflux disease) Hypertension Obstructive sleep apnea syndrome, mild Palpitations Somnolence, daytime Surgical History Status post debridement H/O excision of dermoid cyst No pertinent past surgical history Family History Father No problems noted. Mother No problems noted. Brother No problems noted. Son No problems noted. 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 Cognitive needs: No Hearing needs: No Vision needs: No Review of Systems Const Denies chills, Denies fatigue, Denies fever(s), Denies frequent falls, Denies weakness, Denies weight gain and Denies weight loss ENT Denies dizziness Card Denies chest pain, Denies leg edema, Denies lightheadedness, Denies palpitations, Denies dyspnea, Denies dyspnea on exertion, Denies orthopnea and Denies other (loss of consciousness) Resp Denies cough, Denies dyspnea and Denies dyspnea on exertion GI Denies hematochezia and Denies change in stool character Musc Denies abnormal gait, Denies muscle weakness, Denies numbness, Denies radiating pain into limb and Denies tingling Neuro Denies abnormal gait, Denies dizziness, Denies frequent falls, Denies numbness, Denies tingling and Denies weakness Endo Denies fatigue and Denies palpitations Physical Exam Vital Signs: Last Vital Signs Pulse 85 12/23/24 14:40 BP 140/78 H 12/23/24 14:40 BMI result Body Mass Index 39.0 Const General: cooperative, healthy appearing, comfortable and no acute distress Orientation/consciousness: patient oriented x3 Neck Neck: Yes normal visual inspection and Yes no JVD Resp Effort & Inspection: normal respiratory effort Auscultation: clear to auscultation bilaterally, no rales, no rhonchi and no wheezes Cardio Jugular venous distension: no JVD Rate: regular rate Rhythm: regular rhythm Heart sounds: S1 normal heart sound present, S2 normal heart sound present, no murmurs and no rubs Neuro General: patient oriented x3 Extrem General: Yes normal to inspection and No no pedal edema Psych Appearance: grossly normal Mental Status: mental status grossly normal Speech and movement: Normal speech and movement present Office Procedures EKG Details: EKG shows normal sinus rhythm with normal EKG [id number]-Mbronqtykhauzcuek, Complete Assessment & Plan Assessment & Plan (1) Paroxysmal atrial fibrillation: Comment: Status post cardioversion requiring amiodarone therapy for maintenance Code(s): I48.0 - Paroxysmal atrial fibrillation Category: Medical Plan: Paroxysmal atrial fibrillation status post ablation, maintained in normal rhythm on amiodarone prior to that. Has done very well and has had no recurrent episodes of atrial fibrillation. Given that he has had ablation I would switch him to an alternative antiarrhythmic drug therapy to reduce long-term toxicity. Advised to stop amiodarone and start flecainide in 3 days at 150 mg b.i.d.. Will need concomitant Toprol 25 mg daily to reduce rapid atrial flutter. Discussed with him about medicine change he is agreeable. Continue full oral anticoagulation Xarelto. Will obtain EKG in 2 weeks. Follow up in the clinic in 3 months time. Continue participate in weight loss program. Continue aggressive blood pressure control which is very important. Avoidance of stimulants was discussed. (2) Cardiomyopathy: Code(s): I42.9 - Cardiomyopathy, unspecified Category: Medical Plan: Cardiomyopathy process normalized LV ejection fraction since maintaining rhythm. Continue aggressively rhythm control approach. Management as above. Restart Toprol-XL. Avoidance of cardiotoxic agent such as alcohol was discussed. Will follow up clinic in 3 months time, sooner p.r.n.. For allowing me to partake in his care Medications: New flecainide Start 12/26/24 150 mg PO Q12H 60 tabs 5RF metoprolol succinate ER (Toprol XL) 25 mg PO DAILY 30 tabs 5RF Coding Level of Care Code Est Pt Level 4 (42669) Complex EM visit Add On G2211 Diagnoses Paroxysmal atrial fibrillation I48.0 Cardiomyopathy I42.9 CPT Codes EKG - CPT: 16943-Rerifxgnzrgolwats, Complete ([id number])
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
== END 2024-12-23 15:15 | disposition home or self-care (01) ==
LOC: HO.HCS 14:39
PROVIDERS: PCP Nurse Practitioner Family; Visit Provider Internal Medicine Cardiovascular Disease
DX: I48.0 Paroxysmal atrial fibrillation (principal); I42.9 Cardiomyopathy, unspecified
CPT/HCPCS: 93010; 99214; G2211

== ENCOUNTER → 2024-12-23 14:38 | Outpatient (BNVA) | payer OTHER, SELFPAY | PROVIDERS: PCP Nurse Practitioner Family; Visit Provider Internal Medicine Cardiovascular Disease | DX: I48.0 Paroxysmal atrial fibrillation (principal); I42.9 Cardiomyopathy, unspecified | CPT/HCPCS: 93005; 99212 ==

== ENCOUNTER → 2025-01-05 15:18 | Outpatient (BNVA) | payer OTHER, SELFPAY | PROVIDERS: PCP Nurse Practitioner Family; Visit Provider Internal Medicine Cardiovascular Disease ==

== ENCOUNTER 2025-01-27 15:37 | Outpatient (AMB) | payer OTHER, SELFPAY ==
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
[2025-01-27 15:59] VITALS: BP 170/80; PULSE 74; TEMP 36.2; O2SAT 98; BMI 38.7
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
== END 2025-01-27 16:47 | disposition home or self-care (01) ==
LOC: HO.HMCH 15:38
PROVIDERS: PCP Physician Assistant; Visit Provider Physician Assistant
DX: I48.0 Paroxysmal atrial fibrillation (principal); E66.812 Obesity, class 2; Z68.38 Body mass index [BMI] 38.0-38.9, adult; L40.0 Psoriasis vulgaris; D17.0 Benign lipomatous neoplasm of skin and subcutaneous tissue of head, face and neck; I10 Essential (primary) hypertension

== ENCOUNTER → 2025-01-27 15:37 | Outpatient (BNVA) | payer OTHER, SELFPAY | PROVIDERS: PCP Physician Assistant; Visit Provider Physician Assistant | DX: I48.0 Paroxysmal atrial fibrillation (principal); L40.0 Psoriasis vulgaris; E66.812 Obesity, class 2; Z68.38 Body mass index [BMI] 38.0-38.9, adult; D17.0 Benign lipomatous neoplasm of skin and subcutaneous tissue of head, face and neck; I10 Essential (primary) hypertension; Z79.899 Other long term (current) drug therapy | CPT/HCPCS: 96127; 99212 ==

== ENCOUNTER 2025-03-13 11:04 | Outpatient (AMB) | payer OTHER, SELFPAY ==
--- NOTE | 2025-03-13 11:20 | A.OFFVIS_ITS ---
Vital Signs 3 03/13/25 11:28 Height 6 ft 1 in Weight 284 lb BMI 37.5 BP 144/70 H Blood Pressure Location Lt brachial Position Sitting Pulse 80 Intake Visit Reasons: lipoma back of neck Intake Note: Patient is seen in office for evaluation of a lipoma of the neck. 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 The mass has been present for approximately 10 years and has gradually increased in size. He denies any redness, bleeding or discharge from the site. There is minimal discomfort with palpation but he is concerned about the increasing size of the lesion. He denies any previous surgery or trauma at this location. He is requesting excision of this mass. She was diagnosed with paroxysmal atrial fibrillation in his on Xarelto and Toprol-XL. [facility] Medical History Paroxysmal atrial fibrillation Afib Atrial flutter Rheumatoid arthritis GERD (gastroesophageal reflux disease) Hypertension Obstructive sleep apnea syndrome, mild Palpitations Somnolence, daytime Surgical History Status post debridement H/O excision of dermoid cyst No pertinent past surgical history Family History Father No problems noted. Mother No problems noted. Brother No problems noted. Son No problems noted. 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 Soft tissue mobile mass in the subcutaneous tissue measuring approximately 5 cm in diameter was consistent with a lipoma verses Pilar cyst. There is no tenderness, fluctuance or overlying erythema. Resp Effort & Inspection: normal respiratory effort, no audible wheezes, no cough and no respiratory distress Cardio Jugular venous distension: no JVD GI Inspection: Yes normal to inspection Skin Other: Warm, dry, no rash Neuro General: patient oriented x3 Extrem General: Yes no clubbing, cyanosis or edema Assessment & Plan Assessment & Plan (1) Lipoma of neck: Code(s): D17.0 - Benign lipomatous neoplasm of skin and subcutaneous tissue of head, face and neck Category: Medical Plan 49-year-old male patient presenting with a soft tissue mass located in the posterior neck wishes gradually increasing in size without any associated symptoms. The patient has requested excision and after discussion of the procedure, risks, and alternatives, as consented to excision of this posterior neck lipoma as a short-stay surgery. Coding Level of Care Code New Pt Level 4 (33309) Diagnoses Lipoma of neck D17.0
[2025-03-13 11:28] VITALS: BP 144/70; PULSE 80; BMI 37.5
--- OUTSIDE RECORDS SUMMARY | 2025-03-13 11:58 | XMS_ITS | Data Portability ---
Author Organization JESUS Carpenter s, [address] Address [address] [place] [address] Assessment No assessment recorded. Plan of Treatment Reminders Order Date Submit Date Provider Last Modified By Organization Details Last Modified Time Details Appointments None recorded. Lab rapid strep group A, throat 2023 024 [facility], [address] [place], [address], 15:37:00 Referral None recorded. Procedures None recorded. Surgeries None recorded. Imaging None recorded. Medication Orders prednisone 20 mg tablet 2023 024 [facility]/Pharmacy #[id number], [address] [place], [address], 10:17:44 amoxicillin 875 mg tablet 2023 024 [facility]/Pharmacy #[id number], [address] [place], [address], 09:57:22 Patient TargetsNo targets recorded. Patient Instructions Encounter Date Encounter Id Patient Instructions Last Modified By Organization Details Last Modified Time 12/20/2023 [id number] Please apply a w arm compress to Left hand daily monitor for worsening pain seek immediate care for any shortness of breath, worsening pain, or chest tightness Please elevate left hand as much as possible parish Not available 12/20/2023 09:06:01 01/31/2024 [id number] object in the sk in: care instructions [email or web address] Not available 01/31/2024 15:36:58 Based on your [...] 6. Severe Headache Thank you for using [employer] today, please feel free to contact our office if you have any questions or concerns. Not available 01/31/2024 15:36:56 06/10/2024 [id number] knee pain or injury: care instructions [email or web address] Not available 06/10/2024 10:17:42 Reason for Referral None Reported. Results Created Date Observation Date Name Description Value Unit Range Abnormal Flag Note LastModifiedBy Organization Detail LastModifiedTime 01/31/20 24 01/31/2024 rapid strep group A, throa t Unknown Analyte positi ve Not Available _ [address] [place], [address], 01/31/2024 15:26:13 Result Notes None recorded. Problems Name Problem SNOMED Code Status Onset Date Resolution Date Notes Provider Name and Address Organization Details Recorded Time Contusion of left forearm 5176549562635 9107 Active 2023 CHARLA ESTRADA, ACID CORRECTION HAND [address] , [place], [address], [place] - [facility] 4 09:08:10 Injury of hand 241639899 Active 2023 CHARLA ESTRADA, ACID CORRECTION HAND [address] , [place], [address], [place] - [facility] 4 09:08:39 Atrial fibrillatio n 38222474 Active DAKOTA MINEO null, [place] - [facility] 4 15:19:20 Hypertensiv e disorder 82370227 Active DAKOTA MINEO null, [place] - [facility] 4 15:19:34 Right side sciatica 8769138081209 01 Active 2023 Moise Landis, ACID CORRECTION HAND [address] , [place], [address], [place] - [facility] 4 10:16:54 Problem Notes None recorded. Medical Equipment None Reported. Allergies Allergen ID Allergen Name Allergen Category Reaction Reaction Severity Criticality Documentation Date Start Date Code Code System Note Provider Name and Address Organization Details Recorded Time 748727 aspirin medicatio n other mild Not available [...] height Body mass index (BMI) Body weight Respiratory rate Oxygen saturation Oxygen saturation in Arterial blood by Pulse oximetry Heart rate Body temperature Systolic blood pressure Diastolic blood pressure Provider Name and Address Organization Details Last Updated DateTime 4 185.42 cm 10.6 kg/m2 50502.3 9 g 18 /min 97 % 97 % 66 /min 97.2 [degF] 169 mm[Hg] 96 mm[Hg] Lora LEE - [facility] 4 08:42:19 Date Recorded Body height Body mass index (BMI) Body weight Oxygen saturation Oxygen saturation in Arterial blood by Pulse oximetry Heart rate Respiratory rate Body temperature Systolic blood pressure Diastolic blood pressure Provider Name and Address Organization Details Last Updated DateTime 4 185.42 cm 36.9 kg/m2 047260. 86 g 99 % 99 % 64 [...] Updated DateTime 4 185.42 cm 35.6 kg/m2 494921. 94 g 98 % 98 % 82 /min 98.4 [degF] 156 mm[Hg] 92 mm[Hg] Kim Mayers [place] - [facility] 4 09:56:32 Social History Question Answer Notes LastModified by [employer] ion Details LastModified Time Tobacco Smoking Status Former Smoker Lora high [place] - [facility] 12/20/2023 08:40:33 Which Illicit Or Recreational Drugs Have You Used? Naty Information not available 12/20/2023 When Did You [...] Your Relationship Status? Information not available 06/10/2024 Have You Recently Traveled Abroad? No Information not available 12/20/2023 Sex: Unknown Functional Status Question Answer Note LastModified by Organizat ion Details LastModified Time Do you use any illicit or recreational drugs? Yes Information not available 12/20/2023 What is your level of alcohol consumption? Moderate Information not available 12/20/2023 Are you currently employed? No Information not available 06/10/2024 Mental Status None recorded. Family History Relationship [...] SNOMED-CT Code Diagnosis ICD10 Code Diagnosis Note [id number] 20[facility] [address] [address] 01/11/2022 08:55:02 01/11/2022 11:31:15 [id number] 2099_[facility] [address] 12/14/2021 10:04:50 12/14/2021 10:37:25 [id number] [facility] [address] [address] 01/09/2022 08:31:38 01/09/2022 09:31:24 [id number] CHARLA ESTRADA NP [address] [address] 12/20/2023 08:31:26 12/20/2023 09:14:25 Injury of hand 185808422 S69.92XA Contusion of left forearm 0018720474 6378620 S50.12XA [id number] JESUS FRANKLIN [address] [address] 01/31/2024 15:11:24 01/31/2024 15:39:20 Streptococcal sore throat 55266721 J02.0 [id number] [place] [address] [address] 06/10/2024 09:43:53 06/10/2024 10:19:13 Right side sciatica 8485893985 02629 M54.31 Sciatica is an irritation of one [...] Recorded Advance Directives Directive None Recorded Payers Insurance Date Sequence Insurance Name Policy Number Policy Cadena Covered Member ID Cadena Member ID Guarantor Name 06/10/2024 1 [facility]) ADALID Miles [id number] Bran Miles Notes Date Note Type Note [...] Imaging:noneNotes:Pt states that he was at a libertarian last sunday and unable to recall events but woke up with a bruise to left forearm, medial aspect.Pt has hx of Afib on blood thinning medication , states xarelto.Denies SOB, denies chest tightness and reports compliance with txt plan. Pt reports having a cardiology follow up last week and with no issues CHARLA ESTRADA NP [address] [place], [address], [employer] [facility] 12/20/2023 11:02:15 4 text/html Sore throatReported bypatient.Notes:48 y.o male pt presents with sore throat since the weekend. Pt went out with his and the following day he had sx's. Pt denies fever, N/V or other sx's. JESUS FRANKLIN [address] [place], [address], [place] [facility] 01/31/2024 15:40:12 4 text/html Thigh / HipReported [...] Previous Injections:none Previous PT:none Moise Landis NP [address] [place], [place] [address], [address], [place] - [facility] 06/10/2024 10:18:31
== END 2025-03-13 11:35 | disposition home or self-care (01) ==
LOC: HO.HGS 11:05
PROVIDERS: PCP Physician Assistant; Visit Provider Surgery
DX: D17.0 Benign lipomatous neoplasm of skin and subcutaneous tissue of head, face and neck (principal)
CPT/HCPCS: 99204

== ENCOUNTER → 2025-03-13 11:04 | Outpatient (BNVA) | payer OTHER, SELFPAY | PROVIDERS: PCP Physician Assistant; Visit Provider Surgery | DX: D17.0 Benign lipomatous neoplasm of skin and subcutaneous tissue of head, face and neck (principal) | CPT/HCPCS: 99202 ==

== ENCOUNTER 2025-03-23 14:37 | Outpatient (AMB) | payer OTHER, SELFPAY ==
[2025-03-23 14:39] VITALS: BP 120/70; PULSE 71; BMI 38.4
--- NOTE | 2025-03-23 14:39 | MHC.OFFVIS ---
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 He has been doing well from cardiac perspective. Denies any significant chest pain or shortness of breath. No orthopnea, PND, leg edema. No prolonged palpitation irregular heartbeat. Overall he feels well. Taking all his medications. Was started on losartan as per him seems like and he had blood pressures been well controlled now. No bleeding issues or neurologic events. Plan to undergo surgery in the near future [facility] Medical History Paroxysmal atrial fibrillation Afib Atrial flutter Rheumatoid arthritis GERD (gastroesophageal reflux disease) Hypertension Obstructive sleep apnea syndrome, mild Palpitations Somnolence, daytime Surgical History Status post debridement H/O excision of dermoid cyst No pertinent past surgical history Family History Father No problems noted. Mother No problems noted. Brother No problems noted. Son No problems noted. 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 Cognitive needs: No Hearing needs: No Vision needs: No Review of Systems Const Denies chills, Denies fatigue, Denies fever(s), Denies frequent falls, Denies weakness, Denies weight gain and Denies weight loss ENT Denies dizziness Card Denies chest pain, Denies leg edema, Denies lightheadedness, Denies palpitations, Denies dyspnea, Denies dyspnea on exertion, Denies orthopnea and Denies other (loss of consciousness) Resp Denies cough, Denies dyspnea and Denies dyspnea on exertion GI Denies hematochezia and Denies change in stool character Musc Denies abnormal gait, Denies muscle weakness, Denies numbness, Denies radiating pain into limb and Denies tingling Neuro Denies abnormal gait, Denies dizziness, Denies frequent falls, Denies numbness, Denies tingling and Denies weakness Endo Denies fatigue and Denies palpitations Physical Exam Vital Signs: Last Vital Signs Pulse 71 03/23/25 14:39 BP 120/70 03/23/25 14:39 BMI result Body Mass Index 38.4 Const General: cooperative, healthy appearing, comfortable and no acute distress Orientation/consciousness: patient oriented x3 Neck Neck: Yes normal visual inspection and Yes no JVD Resp Effort & Inspection: normal respiratory effort Auscultation: clear to auscultation bilaterally, no rales, no rhonchi and no wheezes Cardio Jugular venous distension: no JVD Rate: regular rate Rhythm: regular rhythm Heart sounds: S1 normal heart sound present, S2 normal heart sound present, no murmurs and no rubs Neuro General: patient oriented x3 Extrem General: Yes normal to inspection and No no pedal edema Psych Appearance: grossly normal Mental Status: mental status grossly normal Speech and movement: Normal speech and movement present Office Procedures EKG Details: EKG shows normal sinus rhythm with normal EKG 02305-Auylxakkzbszsbcli, Complete Assessment & Plan Assessment & Plan (1) Paroxysmal atrial fibrillation: Comment: Status post cardioversion requiring amiodarone therapy for maintenance Code(s): I48.0 - Paroxysmal atrial fibrillation Category: Medical Plan: Paroxysmal atrial fibrillation status post ablation currently on flecainide therapy has done well with rhythm control approach will continue pursue rhythm control approach. Advised to call me with any new symptoms. Continue current flecainide along with metoprolol therapy. Continue full oral anticoagulation, currently on Xarelto 20 mg daily. Clinically doing well. Avoidance of stimulants was discussed. Continue participate in aggressive weight loss program was discussed with him. (2) Cardiomyopathy: Code(s): I42.9 - Cardiomyopathy, unspecified Category: Medical Plan: Cardiomyopathy which has normalized with maintenance rhythm. He is doing well from that perspective. No signs or symptoms of heart failure. Continue pursue rhythm control approach. Continue current neurohormonal modulation metoprolol and losartan therapy with well optimized blood pressure. Will follow up in the clinic in 6 months time, sooner p.r.n.. Thank you for allowing me to partake in his care Coding Level of Care Code Est Pt Level 4 (14961) Complex EM visit Add On G2211 Diagnoses Paroxysmal atrial fibrillation I48.0 Cardiomyopathy I42.9 CPT Codes EKG - CPT: 91988-Eaistdmassngtbjqg, Complete ([id number])
--- OUTSIDE RECORDS SUMMARY | 2025-03-23 16:21 | XMS_ITS | Data Portability ---
Author Organization JESUS Carpenter s, [address] Address [address] [place] [address] Assessment No assessment recorded. Plan of Treatment Reminders Order Date Submit Date Provider Last Modified By Organization Details Last Modified Time Details Appointments None recorded. Lab rapid strep group A, throat 2023 024 [email or web address] _[facility] [address], [address] [place], [address], 15:37:00 Referral None recorded. Procedures None recorded. Surgeries None recorded. Imaging None recorded. Medication Orders prednisone 20 mg tablet 2023 024 [facility]/Pharmacy #[id number], [address] [place], [address], 10:17:44 amoxicillin 875 mg tablet 2023 024 [facility]/Pharmacy #[id number], [address] [place], [address], 09:57:22 Patient TargetsNo targets recorded. Patient Instructions Encounter Date Encounter Id Patient Instructions Last Modified By Organization Details Last Modified Time 12/20/2023 [id number] Please apply a w arm compress to Left hand daily monitor for worsening pain seek immediate care for any shortness of breath, worsening pain, or chest tightness Please elevate left hand as much as possible parish Not available 12/20/2023 09:06:01 01/31/2024 [id number] object in the sk in: care instructions [email or web address] Not available 01/31/2024 15:36:58 Based on your [...] 6. Severe Headache Thank you for using [employer] today, please feel free to contact our office if you have any questions or concerns. [email or web address] Not available 01/31/2024 15:36:56 06/10/2024 [id number] knee pain or injury: care instructions [email or web address] Not available 06/10/2024 10:17:42 Reason for Referral None Reported. Results Created Date Observation Date Name Description Value Unit Range Abnormal Flag Note LastModifiedBy Organization Detail LastModifiedTime 01/31/20 24 01/31/2024 rapid strep group A, throa t Unknown Analyte positi ve Not Available _ [address] [place], [address], 01/31/2024 15:26:13 Result Notes None recorded. Problems Name Problem SNOMED Code Status Onset Date Resolution Date Notes Provider Name and Address Organization Details Recorded Time Contusion of left forearm 8794208123669 9107 Active 2023 CHARLA ESTRADA, AERIAL PHOTOGRAPH INTERPRETER [address] , [place], [address], [place] - [facility] 4 09:08:10 Injury of hand 039326490 Active 2023 CHARLA ESTRADA, AERIAL PHOTOGRAPH INTERPRETER [address] , [place], [address], [place] - [facility] 4 09:08:39 Atrial fibrillatio n 20278809 Active DAKOTA MINEO null, PA - [facility] 4 15:19:20 Hypertensiv e disorder 30489728 Active DAKOTA MINEO null, PA - [facility] 4 15:19:34 Right side sciatica 7758638710535 01 Active 2023 Moise Landis, AERIAL PHOTOGRAPH INTERPRETER [address] , [place], [address], [place] - [facility] 4 10:16:54 Problem Notes None recorded. Medical Equipment None Reported. Allergies Allergen ID Allergen Name Allergen Category Reaction Reaction Severity Criticality Documentation Date Start Date Code Code System Note Provider Name and Address Organization Details Recorded Time 344983 aspirin medicatio n other mild Not available [...] Updated DateTime 4 185.42 cm 10.6 kg/m2 70361.3 9 g 18 /min 97 % 97 [...] Updated DateTime 4 185.42 cm 36.9 kg/m2 325978. 86 g 99 % 99 % 64 [...] Updated DateTime 4 185.42 cm 35.6 kg/m2 615661. 94 g 98 % 98 % 82 /min 98.4 [degF] 156 mm[Hg] 92 mm[Hg] Kim Mayers PA - [facility] 4 09:56:32 Social History Question Answer Notes LastModified by [employer]. ion Details LastModified Time Tobacco Smoking Status [...] SNOMED-CT Code Diagnosis ICD10 Code Diagnosis Note [id number] [address] [address] [address] 01/11/2022 08:55:02 01/11/2022 11:31:15 [id number] 2099_[facility] _[address] [address] 12/14/2021 10:04:50 12/14/2021 10:37:25 [id number] [facility] [address] [address] 01/09/2022 08:31:38 01/09/2022 09:31:24 [id number] CHARLA ESTRADA NP [address] [address] 12/20/2023 08:31:26 12/20/2023 09:14:25 Injury of hand 109937769 S69.92XA Contusion of left forearm 0796586003 3289205 S50.12XA [id number] JESUS FRANKLIN [address] [address] 01/31/2024 15:11:24 01/31/2024 15:39:20 Streptococcal sore throat 87061407 J02.0 [id number] [place] [address] [address] 06/10/2024 09:43:53 06/10/2024 10:19:13 Right side sciatica 3400632342 19287 M54.31 Sciatica is an irritation of one [...] Cadena Member ID Guarantor Name 06/10/2024 1 [facility] (MEDICAID REPLAC[facility] - HMO) ADALID Miles [id number] Bran Miles Notes Date Note Type Note [...] CHARLA ESTRADA NP [address] [place], [address], [employer] 12/20/2023 11:02:15 4 text/html Sore throatReported bypatient.Notes:48 y.o male pt presents with sore throat since the weekend. Pt went out with his and the following day he had sx's. Pt denies fever, N/V or other sx's. JESUS FRANKLIN [address] [place], [address], [place] [facility] 01/31/2024 15:40:12 4 text/html Thigh / [...] Previous Injections:none Previous PT:none Moise Landis NP [address] [place], [place] [address], [address], [place] - [facility] 06/10/2024 10:18:31
== END 2025-03-23 15:05 | disposition home or self-care (01) ==
LOC: HO.HCS 14:38
PROVIDERS: PCP Nurse Practitioner Family; Visit Provider Internal Medicine Cardiovascular Disease
DX: I48.0 Paroxysmal atrial fibrillation (principal); I42.9 Cardiomyopathy, unspecified
CPT/HCPCS: 93010; 99214; G2211

== ENCOUNTER → 2025-03-23 14:37 | Outpatient (BNVA) | payer OTHER, SELFPAY | PROVIDERS: PCP Nurse Practitioner Family; Visit Provider Internal Medicine Cardiovascular Disease | DX: I48.0 Paroxysmal atrial fibrillation (principal); I42.9 Cardiomyopathy, unspecified | CPT/HCPCS: 93005; 99212 ==

== ENCOUNTER 2025-03-30 08:28 | Day surgery (SDC) | payer OTHER, SELFPAY ==
[2025-03-26 11:57] VITALS: BMI 37.5
--- NOTE | 2025-03-30 08:41 | HO.ANESPROP2 ---
[facility] Active Problems Active Problems: All Active Problems Lipoma of neck (Acute) Class 2 obesity (Acute) Sacroiliac joint dysfunction of right side (Acute) Right knee pain (Acute) Lumbar radiculitis (Acute) Cardiomyopathy (Acute) Shortness of breath (Acute) Effusion, left knee (Acute) Status post arthroscopy of left knee (Acute) Osteoarthritis of left knee (Acute) Tear of meniscus of left knee (Acute) Internal derangement of left knee (Acute) Plaque psoriasis (Acute) Cystic fibrosis carrier (Acute) Elevated liver enzymes (Acute) Annual physical exam (Acute) Erectile dysfunction (Acute) Screening for hypothyroidism (Acute) Screening for hypercholesterolemia (Acute) Screening for diabetes mellitus (DM) (Acute) Skin lesion (Acute) Paroxysmal atrial fibrillation (Acute) Hypertension (Acute) Obstructive sleep apnea syndrome, mild (Acute) Palpitations (Acute) Somnolence, daytime (Acute) Past Medical History Medical History Plaque psoriasis Paroxysmal atrial fibrillation Afib Atrial flutter Rheumatoid arthritis GERD (gastroesophageal reflux disease) Hypertension Obstructive sleep apnea syndrome, mild Palpitations Somnolence, daytime Functional capacity: independent ambulation Family History Family History Father No problems noted. Mother No problems noted. Brother No problems noted. Son No problems noted. Pertinent family history: nothing significant Family history of problems with anesthesia: No Surgical History Surgical History Hx of arthroscopy of left knee Status post debridement H/O excision of dermoid cyst No pertinent past surgical history History of Problems with Anesthesia: No Social History Social History Housing: House Alcohol intake: current Alcohol intake frequency: a few times a month Alcohol type: beer Patient Tobacco Use Status: Former Tobacco user Tobacco use type: Cigarette e-Cigarette/Vaping Use: Never Used Second Hand Smoke Exposure: No Substance Use Type: Marijuana Advance Directives: No Advance Directives Information Provided: Yes service: No 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al status: employed 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 Cognitive needs: No Hearing needs: No Vision needs: No Meds Allergies Allergy/AdvReac Type Severity Reaction Status Date / Time aspirin Allergy Unknown nose bleeds Verified 03/30/25 08:38 Active Medications: Current Medications Cefazolin Sodium/Dextrose (Ancef) 2 gm in 50 mls @ 100 mls/hr IV PREOP ONE Stop: 03/30/25 09:02 Lactated Ringer's (Lr) 1,000 mls @ 100 mls/hr IVCONT .Q10H ELOY Home Medications ?Medication ?Instructions ?Recorded ?Confirmed ?Last Taken ?Type guselkumab 100 mg/mL subcutaneous 100 mg subcut 11/01/20 03/23/25 Unknown History auto-injector (Tremfya) blood pressure test kit-large #1 ea 04/12/23 01/27/25 Unknown History ketoconazole 2 % shampoo topical BID 04/12/23 03/23/25 Unknown History omeprazole PO DAILY 03/30/25 Unknown History Exam Exam Date and Time: 03/30/2025 Height,Weight and Vital Signs: Height 6 ft 1 in Weight 128.82 kg Airway Mallampati Class: II TM Dist: >3cm Neck ROM: Full Denture: Upper (full upper denture) Partial: Lower Loose/Missing/Broken Teeth: Yes Heart: rrr Lungs: cta Assessment and Plan Assessment Anesthesia Assessment: Anesthesia Plan Discussed Final Anesthetic Review Family History of Problems with Anesthesia: No History of Problems with Anesthesia: No NPO: Yes ASA Class: II Final Preanesthetic Review: No Changes in Pt Med Stat, Meds/Allgs Chart Reviewed, Consent Obtained/Reviewed and Anes Risks/Benef Reviewed Patient Risk: Low Procedure Risk: Low Anesthetic Plan Anesthetic Plan: GA Disposition: Standard PACU
[2025-03-30 08:45] VITALS: BMI 37.0
[2025-03-30] MEDS: Lactated Ringers 1,000 ML 100 ML IVCONT (08:55)
--- NOTE | 2025-03-30 09:00 | MHC.SHP ---
Pre-Procedural Eval Section A - 24 Hr Update-Section A only Date of Service: 03/30/25 The patient is an INPATIENT: No Changes since office visit: Yes Patient answered all questions; No Cold of Flu in the past 2 weeks, No New Medical Problems and No Changes in Medication The patient has been examined within 24 hours of the surgical procedure. The History & Physical has been completed within 30 days and I have reviewed it.: No Section B - Complete if H&P > 30 days Chief Complaint: Benign lipomatous neoplasm of skin and subcutaneou Details of Present Illness: Would change in patient's symptoms Relevant Family History (Specify if Yes): No Relevant Social History: None Present Medications: see Short Stay Collaborative assessment Medical History: Significant History History of Previous Operations: No relevant previous surgery Allergies: Allergies Allergy/AdvReac Type Severity Reaction Status Date / Time aspirin Allergy Unknown nose bleeds Verified 03/30/25 08:38 Review of Systems Sugical H&P ROS: Negative: Constitution, Cardiovascular, Respiratory, Neurological, Psychiatric, Hem-Onc, Allergic/Immunologic, Gastrointestinal, Genitourinary, Musculoskeletal, Integumentary, Endocrine and Eyes/Ears/Nose/Throat Exam Surgical H&P Exam: Normal: HEENT, Normal: Heart, Normal: Lungs, Normal: Extremities, Normal: Abdomen, Normal: Skin and Normal: Neurological Plan Diagnosis/Plan: Unchanged I have reviewed the history and physical and performed a pertinent physical examination on my patient. No changes have occurred unless specified. Time Spent With Patient Time: Total time managing care of this patient today ____ minutes.
[2025-03-30 09:04] VITALS: BP 137/68; PULSE 74; RESP 16; TEMP 36.1; O2SAT 99
--- NOTE | 2025-03-30 09:56 | P.OP_ITS ---
Operative Note Operative Note Date of Service: 03/30/25 Narrative: Preoperative diagnosis: Lipoma posterior neck Postoperative diagnosis: Same Procedure: Excision of lipoma posterior neck Surgeon: Esa Masters MD Intelligent Systems Engineer: Talya Grant PA-C; Anastasiia Kirkpatrick MS-3 Anesthesia: General LMA Indications for procedure: 49-year-old male patient presenting with a soft tissue mass of the posterior neck measuring approximately 4-5 cm in diameter Operative findings: 3 cm lipoma posterior neck Specimen: Lipoma posterior neck Estimated blood loss: 5 mL Complications: None Procedure details: Patient was brought to the OR placed in a supine position. He was administered General anesthesia and placed in a left lateral decubitus position. The posterior neck was prepped with ChloraPrep and draped in a sterile fashion. A surgical time-out was called the consent confirmed. Patient received preoperative antibiotics and Venodyne boots were in place. Local anesthesia consisting of 0.5% Sensorcaine was infiltrated directly over the lipoma in a transverse fashion. Incision was then made with a scalpel and carried down through subcutaneous tissue. The lipoma was identified grasped with an Allis clamp. Combination of sharp and electrocautery dissection was then used to dissect the lipoma from the surrounding subcutaneous tissue. Hemostasis was assured using electrocautery. The lesion was excised and sent to pathology for further examination. Wounds were irrigated with saline solution and suctioned dry. Wounds were again checked for hemostasis. Deep subcutaneous tissue was then reapproximated using interrupted 3-0 Polysorb sutures. Dermis was reapproximated using interrupted 3-0 Polysorb sutures. Skin was closed using a running subcuticular 4-0 Polysorb suture. Steri-Strips, 4 x 4 gauze and Tegaderm were then applied. The patient tolerated the procedure well. Sponge, instrument, and needle counts reported as correct. The patient was transferred to PACU in stable condition.
[2025-03-30 10:08] VITALS: BP 130/61; PULSE 80; RESP 16; TEMP 36.1; O2SAT 92
[2025-03-30 10:10] VITALS: BP 136/64; PULSE 76; RESP 16; O2SAT 92
[2025-03-30 10:15] VITALS: BP 122/61; PULSE 73; RESP 16; O2SAT 92
[2025-03-30 10:20] VITALS: BP 115/61; PULSE 69; RESP 16; O2SAT 95
[2025-03-30 10:30] VITALS: BP 129/71; PULSE 72; RESP 16; TEMP 36.1; O2SAT 95
== END 2025-03-30 10:46 | disposition home or self-care (01) ==
PROVIDERS: PCP Physician Assistant; Visit Provider Surgery
PROC: (CPT 21552; principal; 2025-03-30 08:00)
DX: D17.0 Benign lipomatous neoplasm of skin and subcutaneous tissue of head, face and neck (principal); I48.0 Paroxysmal atrial fibrillation; I48.92 Unspecified atrial flutter; R00.2 Palpitations; I10 Essential (primary) hypertension; R40.0 Somnolence; M06.9 Rheumatoid arthritis, unspecified; K21.9 Gastro-esophageal reflux disease without esophagitis; G47.33 Obstructive sleep apnea (adult) (pediatric); E66.812 Obesity, class 2; Z68.37 Body mass index [BMI] 37.0-37.9, adult; Z79.01 Long term (current) use of anticoagulants; Z79.899 Other long term (current) drug therapy; Z88.6 Allergy status to analgesic agent; Z87.891 Personal history of nicotine dependence
CPT/HCPCS: 21552; 88304; J0690; J1100; J1171; J2003; J2405; J2704; J2795; J3010

== ENCOUNTER → 2025-03-30 08:28 | Outpatient (BNV) | payer OTHER, SELFPAY | PROVIDERS: PCP Physician Assistant; Visit Provider Surgery | DX: D17.0 Benign lipomatous neoplasm of skin and subcutaneous tissue of head, face and neck (principal) | CPT/HCPCS: 21552 ==

== ENCOUNTER 2025-04-17 13:31 | Outpatient (REF) | payer OTHER, SELFPAY ==
--- NOTE | ~2025-04-17 | XR_ITS ---
EXAMINATION: XR LUMBOSACRAL SPINE CLINICAL INFORMATION: S32.029A - Unspecified fracture of second lumbar vertebra, initial encou... COMPARISON: 07/03/2024 TECHNIQUE: Three views of the lumbosacral spine. FINDINGS: There is a new superior endplate fracture of L2, with approximately 40% loss of height. There is a fragment displaced anteriorly. No definite compromise of the posterior margin of the vertebral body. No definite extension into the posterior elements. There is a subtle kyphosis at this level. No additional fractures or compression deformities. There is otherwise normal lordosis and alignment. There is minimal right convex scoliosis. Mild multilevel disc degeneration present, unchanged. Normal facet alignment. Facet degeneration noted at L4-S1. Soft tissues demonstrate early vascular calcifications but are otherwise normal. XR/XR lumbar spine 2-3V IMPRESSION: 1. Age indeterminate and possibly acute 40% superior endplate fracture of L2, with a displaced fragment anteriorly. On plain film this does not definitely involve the posterior elements. Subtle kyphosis at this level. A CT could be considered to exclude posterior element involvement. 2. Mild degenerative disc and facet changes. Electronically signed by: Lico Forde MD 04/17/2025 02:02 PM EDT
--- OUTSIDE RECORDS SUMMARY | 2025-04-17 13:35 | XMS_ITS | Data Portability ---
Author Organization JESUS O[facility]eda [facility], [address] Address [address] [place] [address] Assessment No assessment recorded. Plan of Treatment Reminders Order Date Submit Date Provider Last Modified By Organization Details Last Modified Time Details Appointments None recorded. Lab rapid strep group A, throat 2023 024 _[facility] [address], [address] [place], [address], 15:37:00 Referral None recorded. Procedures None recorded. Surgeries None recorded. Imaging None recorded. Medication Orders prednisone 20 mg tablet 2023 024 [facility]/Pharmacy #[id number], [address] [place], [address], 10:17:44 amoxicillin 875 mg tablet 2023 024 [facility] #[id number], [address] [place], [address], 09:57:22 Patient TargetsNo targets recorded. Patient Instructions Encounter Date Encounter Id Patient Instructions Last Modified By Organization Details Last Modified Time 12/20/2023 [id number] Please apply a w arm compress to Left hand daily monitor for worsening pain seek immediate care for any shortness of breath, worsening pain, or chest tightness Please elevate left hand as much as possible [email or web address] Not available 12/20/2023 09:06:01 01/31/2024 [id number] object in the sk in: care instructions [email or web address] Not available 01/31/2024 15:36:58 Based on your [...] 6. Severe Headache Thank you for using [employer] today, please feel free to contact our office if you have any questions or concerns. [email or web address] Not available 01/31/2024 15:36:56 06/10/2024 [id number] knee pain or injury: care instructions [email or web address] Not available 06/10/2024 10:17:42 Reason for Referral None Reported. Results Created Date Observation Date Name Description Value Unit Range Abnormal Flag Note LastModifiedBy Organization Detail LastModifiedTime 01/31/20 24 01/31/2024 rapid strep group A, throa t Unknown Analyte positi ve Not Available ie [address], [address], 01/31/2024 15:26:13 Result Notes None recorded. Problems Name Problem SNOMED Code Status Onset Date Resolution Date Notes Provider Name and Address Organization Details Recorded Time Contusion of left forearm 1152093617839 9107 Active 2023 CHARLA ESTRADA NP [address] , [place], [address], [place] - [facility] 4 09:08:10 Injury of hand 677821084 Active 2023 CHARLA ESTRADA NP [address] , [place], [address], [place] - [facility] 4 09:08:39 Atrial fibrillatio n 38029093 Active DAKOTA MINEO null, PA - [facility] 4 15:19:20 Hypertensiv e disorder 44810653 Active DAKOTA MINEO null, PA - [facility] 4 15:19:34 Right side sciatica 8278768297525 01 Active 2023 Moise Landis NP [address] , [place], [address], [place] - [facility] 4 10:16:54 Problem Notes None recorded. Medical Equipment None Reported. Allergies Allergen ID Allergen Name Allergen Category Reaction Reaction Severity Criticality Documentation Date Start Date Code Code System Note Provider Name and Address Organization Details Recorded Time 187404 aspirin medicatio n other mild Not available 06/10/2024 1191 RxNorm Kim Kiet'Brendon null, PA - [facility] 4 09:55:45 [...] Pulse oximetry Heart rate Body temperature Systolic And Diastolic Provider Name and Address Organization Details Last Updated DateTime 4 185.42 cm 10.6 kg/m2 94121.3 9 g 18 /min 97 % 97 % 66 /min 97.2 [degF] 169/96 mm[Hg] Lora LEE - [facility] 4 08:42:19 Date Recorded Body height Body mass index (BMI) Body weight Oxygen saturation Oxygen saturation in Arterial blood by Pulse oximetry Heart rate Respiratory rate Body temperature Systolic And Diastolic Provider Name and Address Organization Details Last Updated DateTime 4 185.42 cm 36.9 kg/m2 035385. 86 g 99 % 99 % 64 /min 18 /min 97.9 [degF] 160/94 mm[Hg] DAKOTA NADIR PA - [facility] 4 15:23:16 Date Recorded Body height Body mass index (BMI) Body weight Oxygen saturation Oxygen saturation in Arterial blood by Pulse oximetry Heart rate Body temperature Systolic And Diastolic Provider Name and Address Organization Details Last Updated DateTime 4 185.42 cm 35.6 kg/m2 790076. 94 g 98 % 98 % 82 /min 98.4 [degF] 156/92 mm[Hg] Kim Mayers PA - [facility] 4 09:56:32 Social History Question Answer Notes LastModified by [employer] Details LastModified Time Tobacco Smoking Status Former Smoker Lora high PA - [facility] 12/20/2023 08:40:33 Which Illicit Or Recreational Drugs Have You Used? Marikelleeiana Information not available 12/20/2023 When Did You [...] Functional Status Question Answer Note LastModified by [employer] Details LastModified Time Do you use any [...] Recorded Time Tdap 9 completed JESUS Orozco [facility] 12/20/2023 08:36:31 Td (adult), 2 Lf tetanus toxoid, preservative free, adsorbed 2 completed JESUS Orozco [facility] 12/20/2023 08:36:31 Past Encounters Encounter ID Performer Location Encounter Start Date Encounter Closed Date Diagnosis/Indication Diagnosis SNOMED-CT Code Diagnosis ICD10 Code Diagnosis Note [id number] [facility] [address] [place] [address] 01/11/2022 08:55:02 01/11/2022 11:31:15 [id number] [facility] [address] [facility] [address] 12/14/2021 10:04:50 12/14/2021 10:37:25 [id number] [facility] [address] [place] [address] 01/09/2022 08:31:38 01/09/2022 09:31:24 [id number] CHARLA [facility]STRADA [facility] [address] [facility] [address] [place] [address] 12/20/2023 08:31:26 12/20/2023 09:14:25 Injury of hand 828205396 S69.92XA Contusion of left forearm 6794702934 1664795 S50.12XA [id number] JESUS FRANKLIN [address] [address] 01/31/2024 15:11:24 01/31/2024 15:39:20 Streptococcal sore throat 10655293 J02.0 [id number] [place] [address] [address] 06/10/2024 09:43:53 06/10/2024 10:19:13 Right side sciatica 7941731392 66152 M54.31 Sciatica is an irritation of one [...] Concerns Section Related Observation LastModified by Organization Millie ls LastModified Time None Recorded Concern Status LastModified by Organization Details LastModified Time None Recorded Advance Directives Directive None Recorded Payers Insurance Date Sequence Insurance Name Policy Number Policy Cadena Covered Member ID Cadena Member ID Guarantor Name 06/10/2024 1 [facility] (MEDICAID REPLACEMENT - HMO) [employer]OST[employer] Bran D Ginger [id number] Bran Miles Notes Date Note Type Note [...] CHARLA ESTRADA NP [address] [place], [address], [facility] 12/20/2023 11:02:15 4 text/html Sore throatReported bypatient.Notes:48 y.o male pt presents with sore throat since the weekend. Pt went out with his and the following day he had sx's. Pt denies fever, N/V or other sx's. JESUS FRANKLIN [address] [place], [address], PA APR [facility] 01/31/2024 15:40:12 4 text/html Thigh / [...] Previous Injections:none Previous PT:none Moise Landis NP [facility] [place], [address], [place] - [facility] 06/10/2024 10:18:31
== END 2025-04-17 13:32 | disposition home or self-care (01) ==
LOC: HO.XRAY 13:31
PROVIDERS: PCP Physician Assistant; Visit Provider Physician Assistant
DX: S32.029A Unspecified fracture of second lumbar vertebra, initial encounter for closed fracture (principal); X58.XXXA Exposure to other specified factors, initial encounter; Y93.9 Activity, unspecified; Y92.9 Unspecified place or not applicable; Y99.9 Unspecified external cause status
CPT/HCPCS: 72100

== ENCOUNTER → 2025-04-17 13:36 | Outpatient (BNV) | payer OTHER, SELFPAY | PROVIDERS: PCP Physician Assistant; Visit Provider Radiology Diagnostic Radiology | DX: S32.029A Unspecified fracture of second lumbar vertebra, initial encounter for closed fracture (principal) | CPT/HCPCS: 72100 ==

== ENCOUNTER 2025-05-08 09:46 | Outpatient (AMB) | payer OTHER, SELFPAY ==
[2025-05-08 09:54] VITALS: BP 148/82; PULSE 85; RESP 18; TEMP 36.2; O2SAT 98; BMI 37.9
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
== END 2025-05-08 11:27 | disposition home or self-care (01) ==
LOC: HO.HMCH 09:47
PROVIDERS: PCP Physician Assistant
DX: S32.020A Wedge compression fracture of second lumbar vertebra, initial encounter for closed fracture (principal); Z98.890 Other specified postprocedural states; Z86.018 Personal history of other benign neoplasm

== ENCOUNTER → 2025-05-08 09:46 | Outpatient (BNVA) | payer OTHER, SELFPAY | PROVIDERS: PCP Physician Assistant | DX: S32.020D Wedge compression fracture of second lumbar vertebra, subsequent encounter for fracture with routine healing (principal); V86.95XD Unspecified occupant of 3- or 4- wheeled all-terrain vehicle (ATV) injured in nontraffic accident, subsequent encounter; Z86.018 Personal history of other benign neoplasm; Z98.890 Other specified postprocedural states; Z13.39 Encounter for screening examination for other mental health and behavioral disorders; Z13.30 Encounter for screening examination for mental health and behavioral disorders, unspecified | CPT/HCPCS: 99212 ==

== ENCOUNTER 2025-05-25 10:24 | Outpatient (REF) | payer OTHER, SELFPAY ==
--- NOTE | ~2025-05-25 | US_ITS ---
CLINICAL HISTORY: N50.82 - Scrotal pain Scrotal ultrasound with vascular interrogation Comparison: None available Findings: The testes are normal in mildly heterogeneous in echotexture without focal lesions. Preserved arterial/venous color Doppler and flow pattern. Question increased color Doppler on the left. Right testis size, minimally enlarged: 4.5 x 2.1 x 3.2 cm, volume of 20.5mL. Left testis size, enlarged: 5.4 x 2.9 x 3.6 cm, volume of 29.7mL. The epididymides are normal in size. Normal echotexture color Doppler in the right. Question decreased echotexture with normal color Doppler on the left. Right epididymal head cyst versus spermatocele measuring 0.9 x 0.6 x 0.7 cm. Left epididymal head cyst versus spermatocele measuring 0.3 x 0.2 x 0.2 cm. Small left hydrocele. Left varicocele measuring up to 0.34 cm. Impression: Left epididymo-orchitis could be considered. Correlate clinically for signs/symptoms of infection. Left varicocele. This document has been electronically signed by: Calli Ley MD on 05/26/2025 15:13:33
== END 2025-05-25 10:25 | disposition home or self-care (01) ==
LOC: HO.US 10:24
PROVIDERS: PCP Physician Assistant
DX: N50.82 Scrotal pain (principal)
CPT/HCPCS: 76870

== ENCOUNTER → 2025-05-25 10:30 | Outpatient (BNV) | payer OTHER, SELFPAY | PROVIDERS: PCP Physician Assistant; Visit Provider Radiology Diagnostic Radiology | DX: N50.82 Scrotal pain (principal); I86.1 Scrotal varices | CPT/HCPCS: 76870 ==

== ENCOUNTER 2025-08-03 17:04 | Emergency (ER) | payer OTHER, SELFPAY ==
--- NOTE | ~2025-08-03 | CT_ITS ---
CLINICAL HISTORY: head injury on anti-coagulation CT head without contrast Comparison: None provided Findings: No intra-axial mass, midline shift, hydrocephalus, or acute hemorrhage. No significant atrophy-like change or white matter disease. The visualized paranasal sinuses and mastoid air cells are clear. The orbits are unremarkable. No acute skull fracture. IMPRESSION: 1. No acute intracranial findings. This document has been electronically signed by: Amberly Cruz MD on 08/03/2025 19:10:56
[2025-08-03 17:47] VITALS: BP 187/88; PULSE 85; RESP 16; TEMP 36.1; O2SAT 99; BMI 37.9
--- NOTE | 2025-08-03 17:48 | ED_ITS ---
HPI - General Adult General Chief complaint: Neuro Symptoms/Deficit Stated complaint: eyesight problem, vertigo Time Seen by Provider: 08/03/25 21:18 Source: patient, family, RN notes reviewed and old records reviewed Mode of arrival: ambulatory Limitations: no limitations History of Present Illness ED Provider: Alycia HPI narrative: 50-year-old male with past medical history significant for atrial fibrillation on Eliquis, hypertension presents for evaluation of dizziness. He reports that he had some blurry vision in his worse with turning his head that started about 4 days ago. He reports that he does have trouble reading close up at baseline pain Since last Sunday or he has had trouble reading far away. This is abnormal but seems to be improving The patient states that last night he felt somewhat dizzy and lightheaded. He reports it feels like he is ?standing on a boat. ? These symptoms worsening when he woke up this morning. Denies any headache or neck pain He does admit that he strike his head 5 days ago on a small hook. He did not have any pain from this did not lose consciousness. He has not seen an eye doctor for several years He has no other complaints or concerns at the surgery Denies any known history of vertigo Related Data Home Medications ?Medication ?Instructions ?Recorded ?Confirmed guselkumab 100 mg/mL subcutaneous 100 mg subcut 05/08/25 auto-injector (Tremfya) blood pressure test kit-large #1 ea 04/12/23 05/08/25 ketoconazole 2 % shampoo topical BID 04/12/23 5 omeprazole PO DAILY 03/30/25 05/08/25 Previous Rx's ?Medication ?Instructions ?Recorded albuterol sulfate 90 mcg/actuation 1 inh inhalation QI D PRN shortness 04/03/24 aerosol inhaler of breath or wheezing 30 day s #8.5 grams rivaroxaban 20 mg tablet (Xarelto) 20 mg PO DAILY #90 tabs 01/27/25 methocarbamol 500 mg tablet 500 mg PO TID PRN muscle s pasm #90 03/05/25 tabs TLSO soft brace- size XL #1 ea 04/15/25 losartan 25 mg tablet 25 mg PO DAILY #90 tabs 04/07 07/02 sulfamethoxazole 800 1 tab PO BID 10 days #20 tab s 05/26/25 mg-trimethoprim 160 mg tablet (Bactrim DS) acetaminophen 650 mg 650 mg PO Q12H PRN pain 15 d ays 06/09/25 tablet,extended release (Tylenol #30 tabs Arthritis Pain) flecainide 150 mg tablet 150 mg PO Q12H #180 tabs metoprolol succinate 25 mg 25 mg PO DAILY #90 tabs tablet,extended release 24 hr meclizine 25 mg tablet 25 mg PO TID PRN dizziness # 20 tabs 08/03/25 Allergies Allergy/AdvReac Type Severity Reaction Status Date / Time aspirin Allergy Unknown nose bleeds Verified 08/03/25 17:48 Review of Systems 2 Constitutional: Constitutional: Denies chills, Denies fever(s), Denies frequent falls and Denies headache(s) Eyes: Eyes: Reports blurry vision, Denies floaters and Denies irritation ENT: Reports vertigo, Reports dizziness, Denies dry mouth and Denies headache(s) Cardiovascular: Cardiovascular: Denies chest pain and Denies dyspnea on exertion Respiratory: Respiratory: Denies cough and Denies dyspnea on exertion Gastrointestinal: Gastrointestinal: Denies abdominal pain, Denies nausea and Denies vomiting Musculoskeletal: Musculoskeletal: Denies back pain Integumentary/Breasts: Skin/Breast: Denies rash Neurologic: Reports vertigo, Reports dizziness, Denies frequent falls and Denies headache(s) [facility] Past Medical History Medical History (Updated 08/03/25 @ 22:39 by Kali Tong) Plaque psoriasis Paroxysmal atrial fibrillation Afib Atrial flutter Rheumatoid arthritis GERD (gastroesophageal reflux disease) Hypertension Obstructive sleep apnea syndrome, mild Palpitations Somnolence, daytime Surgical History (Updated 05/08/25 @ 23:04 by EL Giron) Hx of arthroscopy of left knee Status post debridement H/O excision of dermoid cyst No pertinent past surgical history Family History Family History Father No problems noted. Mother No problems noted. Brother No problems noted. Son No problems noted. 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 Cognitive needs: No Hearing needs: No Vision needs: No Physical Exam ED Vital Signs: Vital Signs - 24 hr 08/03/25 17:47 08/03/25 20:14 08/03/25 22:17 Temperature 96.9 F 98.2 F 98.4 F Pulse Rate 85 89 76 Respiratory Rate 16 18 Blood Pressure 187/88 H 181/74 H 168/79 H Pulse Oximetry 99 98 95 Oxygen Delivery Method Room Air Room Air Room Air BMI result Body Mass Index 37.9 Const General: healthy appearing, comfortable, no acute distress, alert and awake Nutritional Appearance: well nourished Orientation/consciousness: patient oriented x3 HENMT Head: Yes normocephalic and Yes atraumatic Eyes Eyelids: Yes eyelids normal Conjunctivae: conjunctivae normal Sclerae: sclerae normal Corneas: corneas normal Pupils: Equal, round and reactive pupils present EOM: EOMs intact bilaterally Neck Neck: Yes full ROM Resp Effort & Inspection: normal respiratory effort, able to speak in complete sentences and not labored Cardio Rate: regular rate Rhythm: regular rhythm GI Inspection: No distended Palpation (GI): Soft to palpation, not firm, nontender, no guarding and not rigid Skin General skin exam: elasticity normal Neuro General: patient oriented x3 Cranial nerves: Yes CN's II-XII intact bilaterally, Yes Equal, round and reactive pupils present and Yes Bilaterally intact EOM present Cognition (Neuro): normal cognition Motor exam (neuro): 5/5 motor strength present throughout Coordination: uiewyi-uo-ndfc test normal, yozk-he-uhcd test normal, tandem gait normal and Romberg test negative Extrem Other: Moving all extremities well without any obvious deformities Course Course Course Narrative: Rapid medical examination performed in triage by Carlene Hagen PA-C. Patient is a 50 year old assigned male at presenting to the emergency department with blurry vision after hitting his head. Patient states 4 days ago he hit his head putting quad on a lift. Patient states that he is on a blood thinner. Detailed physical exam and review of systems are deferred to the real estate listing consultant. Imaging ordered. Patient placed back in the waiting room pending room availability and results. Reevaluation(s) Reevaluation #1: The patient has symptoms improved after receiving meclizine p.o.. Again this is reassuring for likely peripheral vertigo with a diagnosis. We will discharge the patient with the same. He has been having trouble finding an battery test engineer due to insurance issues we will put a referral in to Dr. Lacey Time: 22:38 Medications Administered Discontinued Medications Generic Name Dose Route Start Last Admin Trade Name Freq PRN Reason Stop Dose Admin Meclizine HCl 50 mg 08/03/25 21:52 08/03/25 22:08 Meclizine Hcl 25 Mg Tablet PO 08/03/25 21:53 50 mg ONCE ONE Administration Medical Decision Making Medical Decision Making [facility] Narrative: 60-year-old male presents for evaluation of dizziness and lightheadedness. His history exam is most consistent with a peripheral vertigo. He has a negative cerebellar exam his symptoms are worse when he turns his head to the side. He does feel like the room is spinning or he is sitting on a boat. He arrival given his recent head strike and anticoagulation a CT scan of the brain was ordered which does not show any troponin obvious intracranial hemorrhage, mass effect or midline shift. Negative cerebellar exam. NIH stroke score of 0. The patient's visual acuity is 2030 bilaterally and 2030 on the right, 2050 on the left. He has no eye pain to suggest glaucoma. His symptoms are bilateral and equal, less likely arterial artery occlusion. Differential Diagnosis Differential Diagnoses: The differential diagnosis associated with the presentation includes Orthostasis Peripheral vertigo CVA Posterior stroke less likely Lab Data [facility] Lab Attestation statement: I reviewed the patient's lab results. No leukocytosis or significant anemia. Normal platelet count. No significant electrolyte abnormalities warranting intervention. 08/03/25 18:06 08/03/25 18:06 Labs: Lab Results 08/03/25 Range/Units 18:06 WBC 6.9 (4.8-10.8) X10*3/uL RBC 4.29 L (4.60-5.80) X10*6/uL Hgb 14.0 (14.0-18.0) g/dl Hct 40.6 L (42.0-52.0) % MCV 94.6 (80.0-98.0) fL MCH 32.6 (27.0-33.0) pg MCHC 34.5 (31.0-36.0) g/dl RDW 12.3 (11.0-16.0) % Plt Count 167 (160-400) X10*3/uL MPV 10.2 (9.4-12.4) fL Immature Gran % (Auto) 0.1 (0.0-0.4) % Neut % (Auto) 66.9 (45-73) % Lymph % (Auto) 23.6 (20-40) % Kleberg % (Auto) 6.4 (2-11) % Eos % (Auto) 2.6 (0-4) % Baso % (Auto) 0.4 (0-2) % Lymph # (Auto) 1.6 (1.2-4.9) X10*3/uL Kleberg # (Auto) 0.4 (0.1-1.2) X10*3/uL Eos # (Auto) 0.2 (0.0-0.4) X10*3/uL Baso # (Auto) 0.0 (0.0-0.2) X10*3/uL Abs Immat Gran (auto) 0.01 (0.00-0.03) X10*3/uL Absolute Neuts (auto) 4.6 (2.0-8.3) x10*3/uL Absolute Nucleated RBC 0.000 (0.0-0.012) X10*3/uL Nucleated RBC % (auto) 0.0 (0.0-0.2) /100WBC PT 17.9 H (10.9-12.4) SEC INR 1.6 H (0.9-1.1) Sodium 144 (135-145) mmol/L Potassium 4.0 (3.3-5.1) mmol/L Chloride 104 (96-108) mmol/L Carbon Dioxide 30 H (22-29) mmol/L Anion Gap 14 (12-20) BUN 14 (9-16) mg/dL Creatinine 0.99 (0.5-1.4) mg/dL Estim Creat Clear Calc 128.5 Estimated GFR > 60 Random Glucose 189 H (60-115) mg/dL Calcium 9.5 (8.4-10.2) mg/dL Magnesium 2.0 (1.6-2.6) mg/dL Total Bilirubin 0.7 (0.0-1.0) mg/dL AST 46 H (5-37) U/L ALT 74 H (0-40) U/L Alkaline Phosphatase 140 H (39-117) U/L Troponin I High Sens 3.7 D (<3.5-35.0) ng/L Total Protein 7.8 (6.5-8.0) g/dL Albumin 4.8 (3.5-5.0) g/dL Radiology Impression Discussion of test interpretation with radiology: I have reviewed the radiologist's reading. Radiologist Impression: Findings: No intra-axial mass, midline shift, hydrocephalus, or acute hemorrhage. No significant atrophy-like change or white matter disease. The visualized paranasal sinuses and mastoid air cells are clear. The orbits are unremarkable. No acute skull fracture. IMPRESSION: 1. No acute intracranial findings. This document has been electronically signed by: Amberly Cruz MD on 08/03/2025 19:10:56 Discharge Plan Discharge Clinical Impression: Dizziness Patient Disposition: Home, Self-Care Instructions: Vertigo (ED) Additional Instructions: Your workup in the ER today was reassuring. This includes your CT scan, blood work. Your symptoms are most consistent with peripheral vertigo pain You may take the meclizine as needed for dizziness. Follow up with Ophthalmology and your primary doctor. Return for new or worsening symptoms Prescriptions: New meclizine 25 mg tablet 25 mg PO TID PRN (Reason: dizziness) Qty: 20 0RF No Action albuterol sulfate 90 mcg/actuation HFA aerosol inhaler 1 inh inhalation QID PRN (Reason: shortness of breath or wheezing) 30 Days Qty: 8.5 0RF methocarbamol 500 mg tablet 500 mg PO TID PRN (Reason: muscle spasm) Qty: 90 1RF Rx Instructions: No driving while taking this medication. Do no take with alcohol or other KRAFT MILL [employer]PER[employer] Depressants (DME) TLSO soft brace- size XL See Rx Instructions .Route .MEDSUPPLY Qty: 1 0RF Rx Instructions: As directed losartan 25 mg tablet 25 mg PO DAILY Qty: 90 1RF sulfamethoxazole-trimethoprim [Bactrim DS] 800-160 mg tablet 1 tab PO BID 10 Days Qty: 20 0RF acetaminophen [Tylenol Arthritis Pain] 650 mg tablet extended release 650 mg PO Q12H PRN (Reason: pain) 15 Days Qty: 30 2RF flecainide 150 mg tablet 150 mg PO Q12H Qty: 180 3RF metoprolol succinate 25 mg tablet extended release 24 hr 25 mg PO DAILY Qty: 90 1RF omeprazole PO DAILY Tremfya 100 mg/mL auto-injector 100 mg subcut (DME) blood pressure test kit-large Kit See Rx Instructions .ROUTE DIRECTED Qty: 1 Rx Instructions: As directed ketoconazole 2 % shampoo topical BID Xarelto 20 mg tablet 20 mg PO DAILY Qty: 90 3RF Rx Instructions: must administer with evening meal Referrals: Mauro Lacey [Physician, Ophthalmology] Referral Note: blurry vision, previous TBI affecting vision Print Language: Syriac
--- NOTE | 2025-08-03 17:52 | ECG_ITS ---
Test Reason : dizzinesss Blood Pressure : */* mmHG Vent. Rate : 80 BPM Atrial Rate : 80 BPM P-R Int : 162 ms QRS Dur : 100 ms QT Int : 388 ms P-R-T Axes : 19 15 36 degrees QTcB Int : 447 ms Normal sinus rhythm Minimal voltage criteria for LVH, may be normal variant ( [place] product ) Borderline ECG When compared with ECG of 08-Nov-2023 09:37, T wave amplitude has increased in Anterior leads Referred By: Carlene Hagen Electronically Signed By: RAJENDRA ARVIZU
[2025-08-03 18:10] LABS: MANUAL DIFF FLAG NO
[2025-08-03 18:15] LABS: Hematocrit 40.6 % (42.0-52.0); Hemoglobin 14.0 g/dl (14.0-18.0); Imm Gran Abs Auto 0.01 X10*3/uL (0.00-0.03); Imm Gran Pct Auto 0.1 % (0.0-0.4); Lymphocytes Absolute Auto 1.6 X10*3/uL (1.2-4.9); Mean Corpuscular HGB Conc 34.5 g/dl (31.0-36.0); Mean Corpuscular Hemoglobin 32.6 pg (27.0-33.0); Mean Corpuscular Volume 94.6 fL (80.0-98.0); NRBC Abs Auto 0.000 X10*3/uL (0.0-0.012); NRBC Pct Auto 0.0 /100WBC (0.0-0.2); Platelet Count 167 X10*3/uL (160-400); Red Blood Count 4.29 X10*6/uL (4.60-5.80); White Blood Count 6.9 X10*3/uL (4.8-10.8)
[2025-08-03 18:23] LABS: INTERNATIONAL NORM RATIO 1.6 (0.9-1.1); Prothrombin Time 17.9 SEC (10.9-12.4)
[2025-08-03 18:26] LABS: Alanine Aminotransferase 74 U/L (0-40); Albumin Level 4.8 g/dL (3.5-5.0); Alkaline Phosphatase 140 U/L (39-117); Anion Gap 14 (12-20); Aspartate Amino Transferase 46 U/L (5-37); Blood Urea Nitrogen 14 mg/dL (9-16); Calcium 9.5 mg/dL (8.4-10.2); Carbon Dioxide 30 mmol/L (22-29); Chloride 104 mmol/L (96-108); Creatinine Clr Calc Pharmacy 128.5; Estimated Glomerular Filt Rate > 60; Magnesium 2.0 mg/dL (1.6-2.6); Potassium 4.0 mmol/L (3.3-5.1); Sodium 144 mmol/L (135-145); Total Protein 7.8 g/dL (6.5-8.0)
[2025-08-03 18:34] LABS: Troponin-I High Sensitivity 3.7 ng/L (<3.5-35.0)
[2025-08-03 20:14] VITALS: BP 181/74; PULSE 89; RESP 18; TEMP 36.8; O2SAT 98
--- NOTE | 2025-08-03 20:19 | PC.NURSE ---
pt confirms hitting his head on the hook to his four clemens, but states it was a minor bump and does believe it is associated to his current blurred vision and imbalance. increased blurred vision in b/l eyes, starting on 07/30/25. denies pain, headache, nausea or vomiting. This has never happened before. he had a neck injury in March, chronic neck and back pain, denies any new neck or back pain associated to his current complaint.
--- OUTSIDE RECORDS SUMMARY | 2025-08-03 20:33 | XMS_ITS ---
Author Name [facility] Organization Unknown Encounters Encounter Type Encounter Reason Primary Diagnosis Location Date Ambulatory [facility] 06/01/2025 Ambulatory [facility] 06/01/2025 Care Team Organization Name Specialty Phone Email Start Date End [facility] 06/01/2025
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
[2025-08-03 22:17] VITALS: BP 168/79; PULSE 76; TEMP 36.9; O2SAT 95
--- NOTE | 2025-08-03 23:09 | PC.NURSE ---
reviewed discharge instructions with pt. pt verbalized understanding, no sign of distress, notified primary nurse Dawn.
[2025-08-03 23:10] VITALS: BP 168/79; PULSE 76; RESP 20; TEMP 36.7; O2SAT 99
== END 2025-08-03 23:11 | disposition home or self-care (01) ==
PROVIDERS: Physician Assistant Medical; Emergency Provider Student in an Organized Health Care Education/Training Program; PCP Physician Assistant
DX: R42 Dizziness and giddiness (principal); H53.8 Other visual disturbances; I48.91 Unspecified atrial fibrillation; Z79.01 Long term (current) use of anticoagulants; Z79.899 Other long term (current) drug therapy; Z87.891 Personal history of nicotine dependence
CPT/HCPCS: 36415; 70450; 80053; 83735; 84484; 85025; 85610; 93005; 99284

== ENCOUNTER → 2025-08-03 17:51 | Outpatient (BNV) | payer OTHER, SELFPAY | PROVIDERS: PCP Physician Assistant; Visit Provider Specialist | DX: S09.90XA Unspecified injury of head, initial encounter (principal); W22.8XXA Striking against or struck by other objects, initial encounter; Z79.01 Long term (current) use of anticoagulants | CPT/HCPCS: 70450 ==

== ENCOUNTER → 2025-08-03 17:52 | Outpatient (BNV) | payer OTHER, SELFPAY | PROVIDERS: Emergency Provider Student in an Organized Health Care Education/Training Program; PCP Physician Assistant; Visit Provider Internal Medicine | DX: R42 Dizziness and giddiness (principal) | CPT/HCPCS: 93010 ==